=== PATIENT | male | born 1945 | race Caucasian/White ===

== ENCOUNTER 2024-10-31 04:03 | Inpatient (IN) | payer MEDICARE, SELFPAY ==
[2024-10-31] VITALS (35 sets, daily range): BP systolic 83–173; BP diastolic 55–101; PULSE 76–120; RESP 9–99; TEMP 36.4–38.3; O2SAT 83–100; BMI 29.9; BMI 25.2
--- NOTE | 2024-10-31 04:14 | PD.EDAMS ---
Altered Mental Status RME/HPI General Chief Complaint: Altered Mental Status Stated Complaint: AMS Time Seen by Provider: 10/31/24 04:18 Arrival date/time: 10/31/24 04:03 RME / HPI RME / HPI narrative: See [facility] for HPI documentation Related Data Home Medications ?Medication ?Instructions ?Recorded ?Confirmed atorvastatin 40 mg tablet 40 mg PO QDAY 07/13/19 07/13/19 escitalopram oxalate 20 mg tablet 20 mg PO QDAY 07/13/19 07/13/19 ropinirole 2 mg tablet,extended 2 mg PO QDAY 07/13/19 07/13/19 release 24 hr (Requip XL) valsartan 80 mg tablet (Diovan) 240 mg PO QDAY 07/13/19 07/13/19 Previous Rx's ?Medication ?Instructions ?Recorded ondansetron HCl 4 mg tablet 4 mg PO Q8H PRN nausea and 02/25/21 (Zofran) vomiting #20 tabs naproxen 500 mg tablet (Naprosyn) 500 mg PO BID #14 tabs 06/14/22 oxycodone-acetaminophen 5 mg-325 1 tab PO Q8H PRN pain #7 tabs 06/14/22 mg tablet (Percocet) Allergies Allergy/AdvReac Type Severity Reaction Status Date / Time Penicillins Allergy Unknown RASH Verified 05/02/18 12:00 Past Medical History Past Medical History CARDIAC: Positive Cardiac Disorders, Hypercholesterolemia and Hypertension RESPIRATORY: Positive Chronic Obstructive Pulmonary Disease (COPD) ENDOCRINE: Positive Endocrine Disorders and Diabetes Mellitus Type 2 PSYCHO/SOCIAL: Positive Depression and Anxiety Social History SUBSTANCE USE: marijuana ED Exam Narrative Physical exam: See [facility] for physical exam documentation Course Quality Measures none Orders Category Date Time Status Bedside COVID-19 Antigen Test NOW Care 10/31/24 04:15 Active Bedside Influenza A&B Antigen Test NOW Care 10/31/24 04:15 Completed EKG (ED ONLY) *Do not use* NOW Care 10/31/24 04:16 Completed Saline [Insert IV] NOW Care 10/31/24 04:15 Active Straight [In and Out Catheter] X1 Care 10/31/24 04:[address] cervical spine wo con Stat Exams 10/31/24 04:[address] chest abdomen pelvis wo Stat Exams 10/31/24 04:[address] head/brain wo con Stat Exams 10/31/24 04:17 Taken EKG (ED Only) Stat Exams 10/31/24 04:16 Ordered XR chest 1V portable Stat Exams 10/31/24 04:17 Taken ABG [Arterial Blood Gas] Stat Lab 10/31/24 04:17 Ordered Alcohol, Blood Medical Stat Lab 10/31/24 04:20 Results Ammonia Stat Lab 10/31/24 04:20 Completed BNP [B-Type Natriuretic Peptide] Stat Lab 10/31/24 04:20 Completed Beta Hydroxybutyrate Stat Lab 10/31/24 04:20 Results Bilirubin,Direct Stat Lab 10/31/24 04:20 Results Blood Culture (Lab) Stat Lab 10/31/24 04:43 Received CBC Stat Lab 10/31/24 04:20 Completed CK [Creatine Kinase] Stat Lab 10/31/24 04:20 Results CMP [Comprehensive Metabolic Panel] Stat Lab 10/31/24 04:20 Results CRP [C-Reactive Protein] Stat Lab 10/31/24 04:20 Results D-Dimer Stat Lab 10/31/24 04:20 Completed Drug Screen,Urine Stat Lab 10/31/24 04:20 Completed ESR [Sed Rate (ESR)] Stat Lab 10/31/24 04:20 Completed Hemoglobin A1C [Glycohemoglobin w (eAG)] Stat Lab 10/31/24 04:20 Completed Lactate (Lactic Acid) Stat Lab 10/31/24 04:20 Results Lipase Stat Lab 10/31/24 04:20 Results Magnesium Stat Lab 10/31/24 04:20 Results PT [Prothrombin Time with INR] Stat Lab 10/31/24 04:20 Completed PTT [Partial Thromboplastin Time] Stat Lab 10/31/24 04:20 Completed Procalcitonin Stat Lab 10/31/24 04:20 Results TSH [Thyroid Stimulating Hormone] Stat Lab 10/31/24 04:20 Results Troponin I Stat Lab 10/31/24 04:20 Results UA, C/S IF [Urinalysis, C/S if Indicated] Stat Lab 10/31/24 04:20 Completed Acetaminophen Ivpb [Ofirmev Inj] Med 10/31/24 04:45 Discontinued 1,000 mg in 100 ml IV X1 Diazepam Inj [Valium Inj] Med 10/31/24 04:27 Discontinued 10 mg IVP X1 ONE Insulin Reg 100 Units/100 ml [Myxredlin] Med 10/31/24 04:16 Active 100 unit in 100 ml IV 0.1 unit/kg/hr Insulin Regular Med 10/31/24 04:15 Discontinued 10 unit IV X1 ONE Ketorolac Inj [Toradol Inj] Med 10/31/24 04:45 Discontinued 30 mg IVP X1 ONE Ondansetron Inj [Zofran Inj] Med 10/31/24 04:15 Discontinued 4 mg IVP X1 ONE Ringers Lactated 1000 ml [Lactated Ringers] 1,000 ml Med 10/31/24 04:57 Active IV 999 mls/hr Sodium Chloride 0.9% 1000 ml [Ns] 1,000 ml Med 10/31/24 04:15 Discontinued IV 999 mls/hr Sodium Chloride 0.9% 1000 ml [Ns] 1,000 ml Med 10/31/24 05:14 Active IV 999 mls/hr cefTRIAXone/D5w 1gm IV premix [Rocephin/D5w 1gm IV Med 10/31/24 04:31 Discontinued premix] 1 gm in 50 ml IV X1 Vital Signs Vital signs: Vital Signs Temperature 100.7 F H 10/31/24 04:38 Pulse Rate 118 H 10/31/24 04:38 Respiratory Rate 20 10/31/24 04:38 Blood Pressure 173/101 H 10/31/24 04:38 Pulse Oximetry (%) 100 10/31/24 04:38 Oxygen Delivery Method Room Air 10/31/24 04:38 Altered Mental Status MDM Narrative MDM Narrative:: Scribe Attestation: I, Marcella Gallegos, am scribing for and in the presence of Dr. Gutiérrez. This section includes all my notes and documentations, including HPI, PE, and ED course. Ky Gutiérrez MD HPI: 78 y/o male with Hx of DM here with AMS. Can't obtain history from the patient due to AMS. History is from family who is present. Normally, patient is alert and oriented and independent, living alone. Family member found him completely naked and confused. Uncertain about injury. Patient keeps repeatedly asking for water. No other complaints. ROS: Can't obtain from the patient due to current clinical condition. Physical Exam: General: Alert but confused. Eyes: Conjunctivae and lids clear. EOMI. PERRL. Fever noted. ENT: No signs of trauma. Neck: Supple. No tenderness. Heart: Sinus tachycardia noted. Lungs: Mild respiratory distress with tachypnea. Good air movement. No severe rhonchi, wheezing, rales. Chest: No tenderness. Abdomen: Soft and nontender. Back: No tenderness. Legs: No clubbing, cyanosis, edema. Skin: Warm and dry. Neuro: Alert and oriented X 1. Cranial Nerves II-XII grossly intact. No peripheral motor deficits. Musculoskeletal: All major joints and bones are not tender with no limited ROM. I reviewed all resulted diagnostic test results: My interpretation of the EKG is: Sinus tachycardia (116 bpm) with nonspecific ST-T changes. Returned blood test results remarkable for ESR 41, Hgb A1C 11.7, lactic acid 5.4, beta hydroxybutyrate 1.8. UA showed 4+ glucose, 1+ ketones. UDS positive for marijuana. Covid/Influenza: Negative. At this point, diagnoses include: AMS Fever Hyperglycemia Treatment here included: Diazepam 10 mg IV prior to diagnostic tests due to severe agitation IVF Regular insulin bolus and drip Zofran 4 mg IV Toradol 30 mg IV and Tylenol 1000 mg IV Rocephin 1 g IV At 6 AM on 10/31/2024, the care of the patient was transferred to Dr. Merida. Ky Gutiérrez MD Patient data External records reviewed:: [facility] previous records (Reviewed prior ED records from 06/25/22. Patient was seen for Fecal impaction in rectum.) Clinical information provided by:: patient and family Social determinants that could affect healthcare access:: none Patient has the following chronic illnesses:: Hypercholesterolemia, Hypertension, Chronic Obstructive Pulmonary Disease (COPD), Diabetes Mellitus Type 2, Depression and Anxiety How is presenting disease/condition affected by chronic disease/condition?: exacerbated by Evaluation data The following diagnostics were reviewed and interpreted by me:: lab results, radiology exam(s) and EKG tracing(s) (My interpretation of the EKG is: Sinus tachycardia (116 bpm) with nonspecific ST-T changes. Ky Gutiérrez MD) Lab and/or radiology exams considered but not ordered:: None Interpretation Summary: I reviewed all resulted diagnostic test results: My interpretation of the EKG is: Sinus tachycardia (116 bpm) with nonspecific ST-T changes. Returned blood test results remarkable for ESR 41, Hgb A1C 11.7, lactic acid 5.4, beta hydroxybutyrate 1.8. UA showed 4+ glucose, 1+ ketones. UDS positive for marijuana. Covid/Influenza: Negative. Medications / Prescriptions Medications or Prescriptions considered but not ordered:: None Medication administrations:: Medication Administration History Insulin Human Regular (Myxredlin) 100 unit in 100 mls @ 8.165 mls/hr IV .[id number] PRN; Protocol PRN Reason: PER PROTOCOL Stop: 11/30/24 04:15 Lactated Ringer's (Lactated Ringers) 1,000 mls @ 999 mls/hr IV .Q1H1M ONE Stop: 10/31/24 05:57 Last Admin: 10/31/24 05:31 Dose: 999 mls/hr Documented By: SOL Sodium Chloride (Ns) 1,000 mls @ 999 mls/hr IV .Q1H1M ONE Stop: 10/31/24 06:14 Last Admin: 10/31/24 05:35 Dose: 999 mls/hr Documented By: SOL Discontinued Medications Diazepam (Diazepam Inj 5 Mg/Ml Vial 2 Ml) 10 mg IVP X1 ONE Stop: 10/31/24 04:28 Last Admin: 10/31/24 04:35 Dose: 10 mg Documented By: SOL Sodium Chloride (Ns) 1,000 mls @ 999 mls/hr IV .Q1H1M ONE Stop: 10/31/24 05:15 Last Infusion: 10/31/24 05:16 Dose: Infused Documented By: Admin: 10/31/24 04:25 Dose: 999 mls/hr Documented By: SOL Ceftriaxone Sodium/Dextrose (Rocephin/D5w 1gm Iv Premix) 1 gm in 50 mls @ 100 mls/hr IV X1 ONE Stop: 10/31/24 05:00 Last Admin: 10/31/24 04:45 Dose: 100 mls/hr Documented By: SOL Acetaminophen (Ofirmev Inj) 1,000 mg in 100 mls @ 250 mls/hr IV X1 ONE Stop: 10/31/24 05:08 Last Admin: 10/31/24 05:30 Dose: 250 mls/hr Documented By: SOL Insulin Human Regular (Insulin Hum Regular 1 Unit/0.01 Ml (Per Unit)) 10 unit IV X1 ONE Stop: 10/31/24 04:16 Last Admin: 10/31/24 04:26 Dose: 10 unit Documented By: SOL Co-signed By: MAYNOR Ketorolac Tromethamine (Ketorolac Inj 30 Mg/Ml Vial) 30 mg IVP X1 ONE Stop: 10/31/24 04:46 Last Admin: 10/31/24 05:31 Dose: 30 mg Documented By: SOL Ondansetron HCl (Ondansetron Inj 2 Mg/Ml Inj 2 Ml) 4 mg IVP X1 ONE; Protocol Stop: 10/31/24 04:16 Last Admin: 10/31/24 04:25 Dose: 4 mg Documented By: SOL Treatment here from me included: Diazepam 10 mg IV prior to diagnostic tests due to severe agitation IVF Regular insulin bolus and drip Zofran 4 mg IV Toradol 30 mg IV and Tylenol 1000 mg IV Rocephin 1 g IV Consultations Consultation(s) initiated? (list below): No Diagnosis Differential diagnosis altered mental status: alcoholic intoxication, altered mental status, delirium, dementia, hypoglycemia, hyponatremia, subarachnoid hemorrhage and sepsis Most likely diagnosis given after review of the tests above:: At this point, diagnoses include: AMS Fever Hyperglycemia Admission Indicated Admission indicated?: not indicated Explain why admission is indicated or not indicated:: Complete diagnostic tests are pending. Admission Request Was there a request for admission?: No Disposition Plan Disposition Plan: other (specify) (At 6 AM on 10/31/2024, the care of the patient was transferred to Dr. Merida.) Discharge Plan Prescriptions/Referrals Prescriptions/Med Rec: No Action ondansetron HCl [Zofran] 4 mg tablet 4 mg PO Q8H PRN (Reason: nausea and vomiting) Qty: 20 0RF atorvastatin 40 mg Tablet 40 mg PO QDAY valsartan [Diovan] 80 mg Tablet 240 mg PO QDAY escitalopram oxalate 20 mg Tablet 20 mg PO QDAY ropinirole [Requip XL] 2 mg Tablet Extended Release 24 Hr 2 mg PO QDAY oxycodone-acetaminophen [Percocet] 5-325 mg tablet 1 tab PO Q8H MDD 3 PRN (Reason: pain) Qty: 7 0RF naproxen [Naprosyn] 500 mg tablet 500 mg PO BID Qty: 14 0RF Referrals: Jose Antonio Donaldson PA-C [Primary Care Provider] - In 1 week Problem List Clinical Impression: Altered mental status, Fever, Hyperglycemia Patient/Caregiver Discharge Instructions Print Language: Ukrainian
--- NOTE | 2024-10-31 04:16 | EKG_ITS ---
[facility] Test Date: 2024-10-31 Pat Name: XIAO LANDIN Department: Room: - Gender: Male [employer]: ER : 1945 Requested By: Ky Ackerman Order Number: [id number] Reading MD: Ky Ackerman Measurements Intervals [place] Rate: 75 P: 69 IN: 150 QRS: 16 QRSD: 92 T: 91 QT: 428 QTc: 480 Interpretive Statements SINUS RHYTHM ST DEVIATION AND MODERATE T-WAVE ABNORMALITY, CONSIDER ANTEROLATERAL ISCHEMIA Compared to ECG 02/25/2021 16:21:51 T-wave abnormality now present Possible ischemia now present /store/S0/[id number]/ecg/[id number].pdf
--- NOTE | 2024-10-31 04:17 | XR_ITS ---
Examination: CT cervical spine without contrast 2-D sagittal reconstructions 2-D coronal reconstructions 3-D reconstructions. Exam date and time:October 31, 2024, 0509 hours INDICATIONS: Patient found down unconscious with altered mental status today neck pain CTDI:vol (mGy) 16.5 DLP: (mGycm) 293 Technique: Multiple 2 mm axial sections of the cervical spine have been obtained. The coronal and sagittal reconstructions have been obtained. 3-D reconstructions have been obtained. Low dose protocols were performed. One or more of the following dose reduction techniques were used; automated exposure control, adjustment of the mA and/or KV according to patient size, use of iterative reconstruction technique. Findings: Axial sections demonstrate intact base of the skull. C1 exhibit satisfactory relationship to the odontoid. No acute cervical vertebral body fracture seen. Alignment posterior spinous processes satisfactory. Advanced degenerative disc disease C5-C6, C6-C7 Impression: No acute cervical fracture.
--- NOTE | 2024-10-31 04:17 | XR_ITS ---
Examination: CT chest, without intravenous contrast. CT abdomen, without intravenous contrast. CT pelvis, without intravenous contrast. 2-D sagittal and coronal reconstructions. 3-D reconstructions. Date and time of exam:October 31, 2024, 0511 hours INDICATIONS: Patient found down unconscious today with chest and abdominal pain CTDI vol (mgy) 10.2 DLP (MGycm)776 Technique: Multiple CT images, 3.0 mm slice thickness, obtained chest, abdomen, pelvis, with the high-resolution 64 slice scanner.. Sagittal and coronal 2-D reconstructions are obtained. 3-D reconstructions Low dose protocols were performed. One or more of the following dose reduction techniques were used; automated exposure control, adjustment of the mA and/or KV according to patient size, use of iterative reconstruction technique. Findings: Right internal jugular Port-A-Cath tip satisfactory position. Thoracic aorta and pulmonary arteries intact No pneumothorax pulmonary contusion or hemothorax Large retrocardiac gastric hernia The manubrium and body of the sternum intact Severe osteopenia No acute thoracic lumbar or sacral fracture Rib detail is reduced by continual patient motion No displaced rib fractures No liver or splenic or renal laceration Contracted gallbladder Abdominal aorta and back with no free blood in the abdomen No bowel obstruction Bladder intact Hips pelvis bones intact Impression : Thoracic aorta pulmonary arteries intact No pneumothorax pulmonary contusion or hemothorax No abdominal parenchymal laceration Abdominal aorta intact. No free blood in the abdomen or pelvis
--- NOTE | 2024-10-31 04:17 | XR_ITS ---
Examination: CT brain head without contrast. 2-D sagittal coronal reconstructions Date and time of exam:October 31, 2024, 0509 hours INDICATIONS: Patient fell today with injury to the head, followed by altered mental status and agitation CTDI: vol (mGy):53.6 DLP: (mGycm):1038 Technique: Multiple CT axial sections of the brain have been obtained, 5 mm slice thickness. Contrast has not been administered. 2-D sagittal, coronal reconstructions have been obtained Low dose protocols were performed. One or more of the following dose reduction techniques were used; automated exposure control, adjustment of the mA and/or KV according to patient size, use of iterative reconstruction technique. Findings: No significant ventricular enlargement. Intra-axial or extra-axial hemorrhage density is not seen. No mass effect or midline shift Basal cisterns are not remarkable. Fourth ventricle is midline. Cranial vault intact. Impression: Negative for acute hemorrhage, mass effect or midline shift
--- NOTE | 2024-10-31 04:17 | XR_ITS ---
Examination: AP chest single view TECHNIQUE: AP portable upright chest single view Date and time: October 31, 2024 0424 hours, comparison there were ,019 INDICATIONS: Altered mental status with shortness of breath today. Findings : Mild enlargement cardiac contour. Large retrocardiac gastric hernia. Right internal jugular Port-A-Cath tip SVC Mild vascular congestion. No pneumothorax. Osseous structures appear intact IMPRESSION: No pneumothorax
[2024-10-31] MEDS: ONDANSETRON INJ 2 MG/ML INJ 2 ML 4 MG IVP (04:25)
[2024-10-31] MEDS: SODIUM CHLORIDE 0.9% 1000 ML 1,000 ML 999 ML IV ×2 (04:25→05:35)
[2024-10-31] MEDS: INSULIN HUM REGULAR 1 UNIT/0.01 ML (PER UNIT) 10 UNIT IV (04:26)
[2024-10-31] MEDS: DIAZEPAM INJ 5 MG/ML VIAL 2 ML 10 MG IVP (04:35)
[2024-10-31 04:40] LABS: Collection Type, Urine Clean Catch; RBC,Urine 0 /hpf (0-3); Squamous Epithelial Cell,Urine 0 /hpf (0-5); WBC,Urine 0 /hpf (0-5)
[2024-10-31 04:44] LABS: Bilirubin,Urine Negative (Negative); Blood,Urine Negative (Negative); Clarity,Urine Clear (Clear/Hazy); Color,Urine Colorless (Lt Yel-Yel); Culture Indicated,Urine Not Indicated; Glucose, Urine 4+ (Negative); Ketones,Urine 1+ (Negative); Leukocyte Esterase,Urine Negative (Negative); Nitrite,Urine Negative (Negative); PH,Urine 6.0 (5.0-7.0); Protein,Urine Negative (Neg - Trace); Specific Gravity,Urine 1.024 (1.001-1.035); Urobilinogen,Urine Negative mg/dL (0.0-1.0)
[2024-10-31] MEDS: cefTRIAXone/D5w 1gm IV premix 1 GM/50 ML BAG IV (04:45)
[2024-10-31 04:57] LABS: Basophils # (Auto) 0.1 Thou/mm3 (0.0-0.2); Basophils % (Auto) 1 % (0-2.5); Eosinophils # (Auto) 0.0 Thou/mm3 (0.0-0.5); Eosinophils % (Auto) 0 % (0-10); Hematocrit 44.4 % (41.0-53.0); Hemoglobin 13.4 g/dL (13.5-16.0); Immature Granulocytes Auto 0.03 Thou/mm3 (0.00-0.00); Lymphocytes # (Auto) 0.4 Thou/mm3 (1.0-4.8); Lymphocytes % (Auto) 4 % (10-50); Mean Corpuscular HGB Conc 30.2 g/dl (31.0-37.0); Mean Corpuscular Hemoglobin 26.2 pg (25.0-35.0); Mean Corpuscular Volume 87 fL (80-100); Monocytes # (Auto) 0.1 Thou/mm3 (0.0-0.8); Monocytes % (Auto) 1 % (0-12); Neutrophils # (Auto) 9.8 Thou/mm3 (1.8-7.7); Neutrophils % (Auto) 94 % (37-80); Nucleated Red Blood Cell # 0.00 Thou/mm3 (0.00-0.00); Nucleated Red Blood Cell % 0 /100 WBC (0); Platelet Count 402 Thou/mm3 (140-440); RDW Standard Deviation 49.0 fL (35.1-43.9); Red Blood Count 5.11 Miln/mm3 (4.50-5.90); White Blood Count 10.4 Thou/mm3 (3.8-10.6)
[2024-10-31 05:01] LABS: Beta Hydroxybutyrate 1.8 mmol/L (<0.6)
[2024-10-31 05:02] LABS: Ammonia < 10 uMol/L (11-32); Amphetamine/Methamp Scrn,U Negative (Negative); Barbiturate Screen,Urine Negative (Negative); Benzodiazepines Screen,Urine Negative (Negative); Benzoylecgonine Screen, Ur Negative (Negative); Fentanyl Screen,Urine Negative (Negative); Opiate Screen,Urine Negative (Negative); THC Screen,Urine Positive (Negative)
[2024-10-31 05:06] LABS: Lactate (Lactic Acid) 5.4 mMol/L (0.4-2.0)
[2024-10-31 05:12] LABS: INR 1.0 (0.9-1.3); Partial Thromboplastin Time 24.2 Seconds (22.0-36.0); Prothrombin Time 10.9 Seconds (9.0-12.2); Sed Rate (ESR) 41 mm/hr (0-20)
[2024-10-31 05:15] LABS: B-Type Natriuretic Peptide 194 pg/mL (0-100)
[2024-10-31 05:26] LABS: Glucose Estimated Average 289 mg/dL (80-131); Hemoglobin A1C 11.7 % Hgb (4.8-6.0)
[2024-10-31] MEDS: ACETAMINOPHEN IVPB 1,000 MG/100 ML VIAL 250 MG IV (05:30)
[2024-10-31] MEDS: RINGERS LACTATED 1000 ML 1,000 ML 999 ML IV (05:31)
[2024-10-31] MEDS: KETOROLAC INJ 30 MG/ML VIAL IVP (05:31)
[2024-10-31 05:32] LABS: D-Dimer 383 ng/mL (<600)
[2024-10-31 05:55] LABS: Alanine Aminotransferase 14 U/L (10-49); Albumin, Serum 4.2 gm/dL (3.4-4.8); Albumin/Globulin Ratio 1.8 (1.2-2.2); Alkaline Phosphatase 68 U/L (46-116); Anion Gap 13 (7-16); Aspartate Amino Transferase 27 U/L (0-34); BUN/Creatinine Ratio 18 Ratio (12-20); Bilirubin,Direct 0.1 mg/dL (0.0-0.3); Bilirubin,Total 0.4 mg/dL (0.3-1.2); Blood Urea Nitrogen 36 mg/dL (9-23); C-Reactive Protein 0.5 mg/dL (0.0-0.9); Calcium 9.7 mg/dL (8.3-10.6); Calcium (Corrected) 9.7 mg/dL (8.5-10.1); Carbon Dioxide 19.0 mMol/L (20.0-31.0); Chloride 100 mMol/L (98-107); Creatine Kinase 207 U/L (34-171); Creatinine (Component) 2.0 mg/dL (0.6-1.3); Estimated Creatinine Clearance 30.9 mL/min (>60); Globulin 2.3 gm/dL (2.3-3.5); Lipase 31 U/L (12-53); Magnesium 2.2 mg/dL (1.6-2.6); Procalcitonin 0.10 ng/ml (0.0-0.49); Sodium 132 mMol/L (136-145); Thyroid Stimulating Hormone 0.77 uIU/mL (0.55-4.78); Total Protein 6.5 gm/dL (5.7-8.2); eGFR 34 See Note
[2024-10-31 05:57] LABS: Alcohol, Blood Medical < 3.0 mg/dL (0-10.0); Osmolality,Calculated 320 (275-295)
[2024-10-31 05:58] LABS: Troponin I 2.855 ng/mL (0.0-0.045)
[2024-10-31 06:00] LABS: Glucose 955 mg/dL (74-106); Potassium 6.2 mMol/L (3.4-5.1)
--- NOTE | 2024-10-31 06:00 | PRELIM_ITS ---
CT scan of the cervical spine without intravenous contrast (axial sections with sagittal and coronal reformats). October 31, 2024 0509 hours Clinical history: Trauma Comparison: No prior study is available for comparison. Findings: There is no acute fracture or traumatic subluxation. There are multilevel degenerative changes in the form of decreased disc height, marginal osteophytes, uncovertebral and facet arthropathy, predominantly at C5/6 and C6/7 levels with disc osteophyte complexes causing mild spinal canal and mild bilateral neural foraminal narrowing. There are degenerative changes at the atlantoaxial joint. The prevertebral soft tissues are unremarkable. Impression: No evidence of acute fracture or traumatic subluxation. Degenerative changes as described. Report Electronically Signed By: Seth Alvarez 10/31/2024 5:59:47 AM [EST]
--- NOTE | 2024-10-31 06:00 | PRELIM_ITS ---
CT scan of the head without intravenous contrast (axial sections with sagittal and coronal reformats) October 31, 2024 0509 hours Clinical history: AMS Comparison: No prior study is available for comparison. Findings: There is no evidence of intracranial hemorrhage, mass effect or midline shift. There are periventricular white matter hypodensities, compatible with chronic small vessel ischemia. Basal ganglia calcifications are present bilaterally. There is mild volume loss. There is atheromatous calcification of the intracranial arteries. The calvarium is unremarkable. The mastoid air cells and the visualized paranasal sinuses are clear. Impression: No evidence of intracranial hemorrhage, mass effect or midline shift. Chronic small vessel ischemia and volume loss. Report Electronically Signed By: Seth Alvarez 10/31/2024 5:59:55 AM [EST]
[2024-10-31] MEDS: INSULIN REG 100 UNITS/100 ML 100 UNIT/100 ML BAG 8.165 UNIT IV (06:03)
--- NOTE | 2024-10-31 06:21 | PRELIM_ITS ---
CT scan of the chest, abdomen and pelvis without intravenous contrast (axial sections with sagittal and coronal reformats) October 31, 2024 0511 hours Clinical History: Fall Comparison: No prior study is available for comparison. Findings: Bibasilar dependent atelectasis is present. The lungs are otherwise clear. There is no pleural effusion or pneumothorax. The thoracic aorta demonstrates atheromatous calcification without evidence of aneurysm. There is no mediastinal collection. There are small mediastinal lymph nodes, likely reactive. There is no pericardial effusion. A vasyl-cath is seen in the right chest wall with its tip in the superior vena cava. A large hiatal hernia is present. There is thickening of bilateral adrenals. The liver, gallbladder, spleen, pancreas and kidneys are unremarkable on this noncontrast study. Bowel anastomotic sutures are seen in the right lower quadrant. The bowel is otherwise unremarkable. There is a 1.4 cm diverticulum at the right posterolateral wall of the urinary bladder. The urinary bladder is otherwise unremarkable. There is no free fluid or free air. The abdominal aorta and iliac arteries demonstrate atheromatous calcification without evidence of aneurysm. Calcific densities are seen in the pelvis, likely representing phleboliths. Surgical stables are seen in the root of the scrotum. No acute fracture is identified. Degenerative changes are identified in the spine. Impression: No visceral or acute bony injury to the chest, abdomen or pelvis. Other findings as described above. Report Electronically Signed By: Seth Alvarez 10/31/2024 6:20:58 AM [EST]
--- NOTE | 2024-10-31 06:33 | PD.EDADDENDU ---
Emergency Room Addendum <Bel Chase - Last Filed: 10/31/24 08:00> Addendum Narrative: 0600: Care assumed from Dr. Gutiérrez, the previous shift emergency physician. Past medical, surgical, social and family history reviewed. Vitals and home medications reviewed. I will assume the care of the patient at this time, pending remainder of diagnostic tests and final disposition. Please refer to the emergency department record for history and examination from initial visit.? Physical exam by me shows patient under no acute distress at this time. 0703: Discussed test HPI, PMHx, lab, radiology results and/or management with Dr. Burnett. Recommends to keep the patient on an insulin drip. Will consult and recommends ICU admission. EKG #1: Dated 10/31/2024. My interpretation: EKG performed at 0416 hours, sinus tachycardia, rate 116, normal intervals, non specific ST-T wave changes, no cardiac alert EKG #2: Dated 10/31/2024. My interpretation: EKG performed at 0704 hours, sinus tachycardia, rate 102, normal intervals, non specific ST-T wave changes, no cardiac alert 0758: Discussed test HPI, PMHx, lab, radiology results and/or management with Dr. Bryant. States this is a type 2 HI, no interventions to do at this time. <Christy Merida MD - Last Filed: 10/31/24 08:17> Addendum Narrative: 0600: Care assumed from Dr. Gutiérrez, the previous shift emergency physician. Past medical, surgical, social and family history reviewed. Vitals and home medications reviewed. I will assume the care of the patient at this time, pending remainder of diagnostic tests and final disposition. Please refer to the emergency department record for history and examination from initial visit.? Physical exam by me shows patient under no acute distress at this time. Continues to be confused however is following commands. Spoke with patient's daughter at bedside, patient's daughter states that patient has a history of smoking, and diabetes. Patient previously wore an insulin pump however has not had an insulin pump on for some time. Unclear when the last time he used insulin was. Denies alcohol and drugs. States that the patient sometimes up with her sometimes lives on his own. She received a call earlier this morning that her father called somebody saying that he did not feel well and asked them to bring food. Before this patient was at his baseline. No fever diarrhea vomiting chest pain or abdominal pain. Prior provider evaluated patient, ordered labs, CT brain, CT chest abdomen pelvis without contrast also ordered sepsis order set given patient presented tachycardic and febrile. Provided patient with antibiotics tolerated without difficulties. Labs without any leukocytosis, left shift of 94%. VBG with pH 7.31 . Initial presentation potassium was 6.2. EKG showed mild peaked T waves in lead V2 and V3. Prior provider had provided 10 units of insulin as well as started patient on insulin drip. And also provided patient with fluids. I ordered calcium gluconate, albuterol, Kayexalate. Discussed case with machine loader Dr. Burnett, recommended admission to ICU, continuing the insulin drip and believes that with the interventions as provided now, potassium should improve. Patient has an acute kidney injury, creatinine initially 2, down trended to 1.7 following fluid resuscitation. Patient never had an anion gap acidosis. However had a small decrease in his bicarbonate that improved following fluid resuscitation. Blood glucose on presentation was 900 downtrended to 570 following fluids and insulin. Patient hemoglobin A1c is 11.7. Lactic acid 5.1 on initial presentation it was 5.4. Ammonia not elevated, CK2 07. Initial troponin 2, uptrending to 7.8, EKG without evidence of ST elevations or depressions and ischemia pattern, BNP is 194, beta-hydroxybutyrate 1.8, urinalysis without evidence of infection drug screen positive for marijuana. Head CT and cervical spine without any acute abnormalities. Chest x-ray unremarkable, chest abdomen and pelvis without contrast with evidence of a right Port-A-Cath, large retrocardiac gastric hernia, osteopenia otherwise no other abnormalities. EKG #1: Dated 10/31/2024. My interpretation: EKG performed at 0416 hours, sinus tachycardia, rate 116, normal intervals, non specific ST-T wave changes, no cardiac alert EKG #2: Dated 10/31/2024. My interpretation: EKG performed at 0704 hours, sinus tachycardia, rate 102, normal intervals, non specific ST-T wave changes, no cardiac alert 0703: Discussed test HPI, PMHx, lab, radiology results and/or management with Dr. Burnett. Recommends to keep the patient on an insulin drip. Will consult and recommends ICU admission. 0758: Discussed test HPI, PMHx, lab, radiology results and/or management with Dr. Bryant. States this is a type 2 HI, no interventions to do at this time. No need to start heparin. 0816: Reevaluated patient, patient now GCS 15, alert and oriented to person place and situation. Feels better has no complaints. Per the patient's daughter the patient had a Port-A-Cath because he received chemotherapy approximately 10 years ago for colon cancer he has been in remission however he has not followed up with his providers in some time as he does not want to get a repeat colonoscopy. Discussed case with Dr. Mosher supervisor dehydrogenation, will admit the patient. Results <Bel Chase - Last Filed: 10/31/24 08:00> Objective Laboratory: Laboratory Last Values WBC 10.4 Thou/mm3 (3.8-10.6) 10/31/24 04:20 RBC 5.11 Miln/mm3 (4.50-5.90) 10/31/24 04:20 Hgb 13.4 g/dL (13.5-16.0) L 10/31/24 04:20 Hct 44.4 % (41.0-53.0) 10/31/24 04:20 MCV 87 fL (80-100) 10/31/24 04:20 MCH 26.2 pg (25.0-35.0) 10/31/24 04:20 MCHC 30.2 g/dl (31.0-37.0) L 10/31/24 04:20 RDW Std Deviation 49.0 fL (35.1-43.9) H 10/31/24 04:20 Plt Count 402 Thou/mm3 (140-440) 10/31/24 04:20 Neut % (Auto) 94 % (37-80) H 10/31/24 04:20 Lymph % (Auto) 4 % (10-50) L 10/31/24 04:20 Ellis % (Auto) 1 % (0-12) 10/31/24 04:20 Eos % (Auto) 0 % (0-10) 10/31/24 04:20 Baso % (Auto) 1 % (0-2.5) 10/31/24 04:20 Neut # (Auto) 9.8 Thou/mm3 (1.8-7.7) H 10/31/24 04:20 Lymph # (Auto) 0.4 Thou/mm3 (1.0-4.8) L 10/31/24 04:20 Ellis # (Auto) 0.1 Thou/mm3 (0.0-0.8) 10/31/24 04:20 Eos # (Auto) 0.0 Thou/mm3 (0.0-0.5) 10/31/24 04:20 Baso # (Auto) 0.1 Thou/mm3 (0.0-0.2) 10/31/24 04:20 Immature Gran # (Auto) 0.03 Thou/mm3 (0.00-0.00) H 10/31/24 04:20 Absolute Nucleated RBC 0.00 Thou/mm3 (0.00-0.00) 10/31/24 04:20 Immature Gran % 0 % (0-0) 10/31/24 04:20 Nucleated RBC % 0 /100 WBC (0) 10/31/24 04:20 ESR 41 mm/hr (0-20) H 10/31/24 04:20 PT 10.9 Seconds (9.0-12.2) 10/31/24 04:20 INR 1.0 (0.9-1.3) 10/31/24 04:20 APTT 24.2 Seconds (22.0-36.0) 10/31/24 04:20 D-Dimer 383 ng/mL (<600) 10/31/24 04:20 Sodium 132 mMol/L (136-145) L 10/31/24 04:20 Potassium 6.2 mMol/L (3.4-5.1) H* 10/31/24 04:20 Chloride 100 mMol/L (98-107) 10/31/24 04:20 Carbon Dioxide 19.0 mMol/L (20.0-31.0) L 10/31/24 04:20 Anion Gap 13 (7-16) 10/31/24 04:20 BUN 36 mg/dL (9-23) H 10/31/24 04:20 Creatinine 2.0 mg/dL (0.6-1.3) H 10/31/24 04:20 Estim Creat Clear Calc 30.9 mL/min (>60) L 10/31/24 04:20 eGFR 34 See Note (60-) L 10/31/24 04:20 BUN/Creatinine Ratio 18 Ratio (12-20) 10/31/24 04:20 Glucose 955 mg/dL (74-106) H* 10/31/24 04:[address] Glu mg/dL 289 mg/dL (80-131) H 10/31/24 04:20 Hemoglobin A1c 11.7 % Hgb (4.8-6.0) H 10/31/24 04:20 Calculated Osmolality 320 (275-295) H 10/31/24 04:20 Lactic Acid 5.4 mMol/L (0.4-2.0) H* 10/31/24 04:20 Calcium 9.7 mg/dL (8.3-10.6) 10/31/24 04:20 Corrected Calcium 9.7 mg/dL (8.5-10.1) 10/31/24 04:20 Magnesium 2.2 mg/dL (1.6-2.6) 10/31/24 04:20 Total Bilirubin 0.4 mg/dL (0.3-1.2) 10/31/24 04:20 Direct Bilirubin 0.1 mg/dL (0.0-0.3) 10/31/24 04:20 AST 27 U/L (0-34) 10/31/24 04:20 ALT 14 U/L (10-49) 10/31/24 04:20 Alkaline Phosphatase 68 U/L (46-116) 10/31/24 04:20 Ammonia < 10 uMol/L (11-32) L 10/31/24 04:20 Total Creatine Kinase 207 U/L (34-171) H 10/31/24 04:20 Troponin I 2.855 ng/mL (0.0-0.045) H* 10/31/24 04:20 C-Reactive Prot, Quant 0.5 mg/dL (0.0-0.9) 10/31/24 04:20 B-Natriuretic Peptide 194 pg/mL (0-100) H 10/31/24 04:20 Total Protein 6.5 gm/dL (5.7-8.2) 10/31/24 04:20 Albumin 4.2 gm/dL (3.4-4.8) 10/31/24 04:20 Globulin 2.3 gm/dL (2.3-3.5) 10/31/24 04:20 Albumin/Globulin Ratio 1.8 (1.2-2.2) 10/31/24 04:20 Lipase 31 U/L (12-53) 10/31/24 04:20 Beta-Hydroxybutyrate/Acetoacetate 1.8 mmol/L (<0.6) H 10/31/24 04:20 Procalcitonin 0.10 ng/ml (0.0-0.49) 10/31/24 04:20 TSH 0.77 uIU/mL (0.55-4.78) 10/31/24 04:20 Ur Collection Type Clean Catch 10/31/24 04:20 Urine Color Colorless (Lt Yel-Yel) A 10/31/24 04:20 Urine Clarity Clear (Clear/Hazy) 10/31/24 04:20 Urine pH 6.0 (5.0-7.0) 10/31/24 04:20 Ur Specific [place] 1.024 (1.001-1.035) 10/31/24 04:20 Urine Protein Negative (Neg - Trace) 10/31/24 04:20 Urine Glucose (UA) 4+ (Negative) A 10/31/24 04:20 Urine Ketones 1+ (Negative) A 10/31/24 04:20 Urine Blood Negative (Negative) 10/31/24 04:20 Urine Nitrite Negative (Negative) 10/31/24 04:20 Urine Bilirubin Negative (Negative) 10/31/24 04:20 Urine Urobilinogen (Auto) Negative mg/dL (0.0-1.0) 10/31/24 04:20 Ur Leukocyte Esterase Negative (Negative) 10/31/24 04:20 Urine RBC 0 /hpf (0-3) 10/31/24 04:20 Urine WBC 0 /hpf (0-5) 10/31/24 04:20 Ur Squamous Epith Cells 0 /hpf (0-5) 10/31/24 04:20 Urine Bacteria None (None) 10/31/24 04:20 Ur Culture Indicated? Not Indicated 10/31/24 04:20 Urine Opiates Screen Negative (Negative) 10/31/24 04:20 Urine Fentanyl Screen Negative (Negative) 10/31/24 04:20 Ur Barbiturates Screen Negative (Negative) 10/31/24 04:20 U Amphetamin/Meth Scrn Negative (Negative) 10/31/24 04:20 U Benzodiazepines Scrn Negative (Negative) 10/31/24 04:20 U Cocaine Metab Screen Negative (Negative) 10/31/24 04:20 U Marijuana (THC) Screen Positive (Negative) A 10/31/24 04:20 Ethyl Alcohol < 3.0 mg/dL (0-10.0) 10/31/24 04:20 <Christy Merida MD - Last Filed: 10/31/24 08:17> Objective Laboratory: Laboratory Last Values WBC 10.4 Thou/mm3 (3.8-10.6) 10/31/24 04:20 RBC 5.11 Miln/mm3 (4.50-5.90) 10/31/24 04:20 Hgb 13.4 g/dL (13.5-16.0) L 10/31/24 04:20 Hct 44.4 % (41.0-53.0) 10/31/24 04:20 MCV 87 fL (80-100) 10/31/24 04:20 MCH 26.2 pg (25.0-35.0) 10/31/24 04:20 MCHC 30.2 g/dl (31.0-37.0) L 10/31/24 04:20 RDW Std Deviation 49.0 fL (35.1-43.9) H 10/31/24 04:20 Plt Count 402 Thou/mm3 (140-440) 10/31/24 04:20 Neut % (Auto) 94 % (37-80) H 10/31/24 04:20 Lymph % (Auto) 4 % (10-50) L 10/31/24 04:20 Ellis % (Auto) 1 % (0-12) 10/31/24 04:20 Eos % (Auto) 0 % (0-10) 10/31/24 04:20 Baso % (Auto) 1 % (0-2.5) 10/31/24 04:20 Neut # (Auto) 9.8 Thou/mm3 (1.8-7.7) H 10/31/24 04:20 Lymph # (Auto) 0.4 Thou/mm3 (1.0-4.8) L 10/31/24 04:20 Ellis # (Auto) 0.1 Thou/mm3 (0.0-0.8) 10/31/24 04:20 Eos # (Auto) 0.0 Thou/mm3 (0.0-0.5) 10/31/24 04:20 Baso # (Auto) 0.1 Thou/mm3 (0.0-0.2) 10/31/24 04:20 Immature Gran # (Auto) 0.03 Thou/mm3 (0.00-0.00) H 10/31/24 04:20 Absolute Nucleated RBC 0.00 Thou/mm3 (0.00-0.00) 10/31/24 04:20 Immature Gran % 0 % (0-0) 10/31/24 04:20 Nucleated RBC % 0 /100 WBC (0) 10/31/24 04:20 ESR 41 mm/hr (0-20) H 10/31/24 04:20 PT 10.9 Seconds (9.0-12.2) 10/31/24 04:20 INR 1.0 (0.9-1.3) 10/31/24 04:20 APTT 24.2 Seconds (22.0-36.0) 10/31/24 04:20 D-Dimer 383 ng/mL (<600) 10/31/24 04:20 Sodium 132 mMol/L (136-145) L 10/31/24 04:20 Potassium 6.2 mMol/L (3.4-5.1) H* 10/31/24 04:20 Chloride 100 mMol/L (98-107) 10/31/24 04:20 Carbon Dioxide 19.0 mMol/L (20.0-31.0) L 10/31/24 04:20 Anion Gap 13 (7-16) 10/31/24 04:20 BUN 36 mg/dL (9-23) H 10/31/24 04:20 Creatinine 2.0 mg/dL (0.6-1.3) H 10/31/24 04:20 Estim Creat Clear Calc 30.9 mL/min (>60) L 10/31/24 04:20 eGFR 34 See Note (60-) L 10/31/24 04:20 BUN/Creatinine Ratio 18 Ratio (12-20) 10/31/24 04:20 Glucose 955 mg/dL (74-106) H* 10/31/24 04:[address] Glu mg/dL 289 mg/dL (80-131) H 10/31/24 04:20 Hemoglobin A1c 11.7 % Hgb (4.8-6.0) H 10/31/24 04:20 Calculated Osmolality 320 (275-295) H 10/31/24 04:20 Lactic Acid 5.4 mMol/L (0.4-2.0) H* 10/31/24 04:20 Calcium 9.7 mg/dL (8.3-10.6) 10/31/24 04:20 Corrected Calcium 9.7 mg/dL (8.5-10.1) 10/31/24 04:20 Magnesium 2.2 mg/dL (1.6-2.6) 10/31/24 04:20 Total Bilirubin 0.4 mg/dL (0.3-1.2) 10/31/24 04:20 Direct Bilirubin 0.1 mg/dL (0.0-0.3) 10/31/24 04:20 AST 27 U/L (0-34) 10/31/24 04:20 ALT 14 U/L (10-49) 10/31/24 04:20 Alkaline Phosphatase 68 U/L (46-116) 10/31/24 04:20 Ammonia < 10 uMol/L (11-32) L 10/31/24 04:20 Total Creatine Kinase 207 U/L (34-171) H 10/31/24 04:20 Troponin I 2.855 ng/mL (0.0-0.045) H* 10/31/24 04:20 C-Reactive Prot, Quant 0.5 mg/dL (0.0-0.9) 10/31/24 04:20 B-Natriuretic Peptide 194 pg/mL (0-100) H 10/31/24 04:20 Total Protein 6.5 gm/dL (5.7-8.2) 10/31/24 04:20 Albumin 4.2 gm/dL (3.4-4.8) 10/31/24 04:20 Globulin 2.3 gm/dL (2.3-3.5) 10/31/24 04:20 Albumin/Globulin Ratio 1.8 (1.2-2.2) 10/31/24 04:20 Lipase 31 U/L (12-53) 10/31/24 04:20 Beta-Hydroxybutyrate/Acetoacetate 1.8 mmol/L (<0.6) H 10/31/24 04:20 Procalcitonin 0.10 ng/ml (0.0-0.49) 10/31/24 04:20 TSH 0.77 uIU/mL (0.55-4.78) 10/31/24 04:20 Ur Collection Type Clean Catch 10/31/24 04:20 Urine Color Colorless (Lt Yel-Yel) A 10/31/24 04:20 Urine Clarity Clear (Clear/Hazy) 10/31/24 04:20 Urine pH 6.0 (5.0-7.0) 10/31/24 04:20 Ur Specific [place] 1.024 (1.001-1.035) 10/31/24 04:20 Urine Protein Negative (Neg - Trace) 10/31/24 04:20 Urine Glucose (UA) 4+ (Negative) A 10/31/24 04:20 Urine Ketones 1+ (Negative) A 10/31/24 04:20 Urine Blood Negative (Negative) 10/31/24 04:20 Urine Nitrite Negative (Negative) 10/31/24 04:20 Urine Bilirubin Negative (Negative) 10/31/24 04:20 Urine Urobilinogen (Auto) Negative mg/dL (0.0-1.0) 10/31/24 04:20 Ur Leukocyte Esterase Negative (Negative) 10/31/24 04:20 Urine RBC 0 /hpf (0-3) 10/31/24 04:20 Urine WBC 0 /hpf (0-5) 10/31/24 04:20 Ur Squamous Epith Cells 0 /hpf (0-5) 10/31/24 04:20 Urine Bacteria None (None) 10/31/24 04:20 Ur Culture Indicated? Not Indicated 10/31/24 04:20 Urine Opiates Screen Negative (Negative) 10/31/24 04:20 Urine Fentanyl Screen Negative (Negative) 10/31/24 04:20 Ur Barbiturates Screen Negative (Negative) 10/31/24 04:20 U Amphetamin/Meth Scrn Negative (Negative) 10/31/24 04:20 U Benzodiazepines Scrn Negative (Negative) 10/31/24 04:20 U Cocaine Metab Screen Negative (Negative) 10/31/24 04:20 U Marijuana (THC) Screen Positive (Negative) A 10/31/24 04:20 Ethyl Alcohol < 3.0 mg/dL (0-10.0) 10/31/24 04:20 Critical Care Time <Bel Chase - Last Filed: 10/31/24 08:00> Critical Care Time Critical Care Time: Yes Total Critical Care Time (min.): 45 Attestation: The high probability of sudden, clinically significant deterioration in the patient?s condition required the highest level of my preparedness to intervene urgently. The services I provided to this patient were to treat and/or prevent clinically significant deterioration. Services included the following: chart data review, reviewing nursing notes and/or old charts, documentation time, it security consultant collaboration regarding findings and treatment options, medication orders and management, direct patient care, vital sign assessments and ordering, interpreting and reviewing diagnostic studies and lab tests. Aggregate critical care time includes only time during which I was engaged in work directly related to the patient?s care, as described above, whether at bedside or elsewhere in the Emergency Department. It did not include time spent performing other reported procedures or the services of residents, students, nurses or physician assistants.
[2024-10-31] MEDS: FUROSEMIDE INJ 10 MG/ML VIAL 2 ML 40 MG IVP (07:00)
[2024-10-31] MEDS: SOD POLYSTYRENE SULFON SUSP 15 GM/60 ML BTL 30 GM PO (07:01)
[2024-10-31] MEDS: CALCIUM GLUCONATE 10% INJ 1 GM/10 ML VIAL IV (07:01)
[2024-10-31 07:12] LABS: Base Excess, Venous -5 (-3-3); O2 Saturation, Venous 86 % (96-97); PCO2, Venous 41 mmHg (36-56); PO2, Venous 53 mmHg (15-58); pH, Venous 7.31 (7.33-7.66)
[2024-10-31 07:46] LABS: Reflex Lactate? Y
[2024-10-31 07:46] LABS: Alanine Aminotransferase 12 U/L (10-49); Albumin, Serum 3.8 gm/dL (3.4-4.8); Albumin/Globulin Ratio 2.0 (1.2-2.2); Alkaline Phosphatase 52 U/L (46-116); Anion Gap 11 (7-16); Aspartate Amino Transferase 32 U/L (0-34); BUN/Creatinine Ratio 16 Ratio (12-20); Bilirubin,Total 0.2 mg/dL (0.3-1.2); Blood Urea Nitrogen 27 mg/dL (9-23); Calcium 8.6 mg/dL (8.3-10.6); Calcium (Corrected) 8.8 mg/dL (8.5-10.1); Carbon Dioxide 20.4 mMol/L (20.0-31.0); Chloride 111 mMol/L (98-107); Creatinine (Component) 1.7 mg/dL (0.6-1.3); Estimated Creatinine Clearance 36.4 mL/min (>60); Globulin 1.9 gm/dL (2.3-3.5); Osmolality,Calculated 314 (275-295); Potassium 4.8 mMol/L (3.4-5.1); Sodium 142 mMol/L (136-145); Total Protein 5.7 gm/dL (5.7-8.2); eGFR 41 See Note
[2024-10-31 07:50] LABS: Glucose 570 mg/dL (74-106); Troponin I 7.826 ng/mL (0.0-0.045)
[2024-10-31 07:59] LABS: Lactic Acid, 3 HR 5.1 mMol/L (0.4-2.0)
[2024-10-31] MEDS: ALBUTEROL RT 2.5 MG/0.5 ML NEBU 15 MG INH (08:50)
[2024-10-31] MEDS: SODIUM CHLORIDE RT SOL 0.9% 3 ML NEBU INH (08:50)
[2024-10-31] MEDS: PANTOPRAZOLE 40 MG TABLET PO (09:17)
--- NOTE | 2024-10-31 09:55 | PD.RESCONSUL ---
HPI Data of Consult Consult date: 10/31/24 Requesting Physician: Max Mosher MD Admitting Provider: Max Mosher MD Attending Provider: Max Mosher MD Primary Care Provider: Jose Antonio Donaldson PA-C Consult Narrative Reason for consult: Hyperkalemia History of present illness: history provided by daughter Lambert, pt is intermittently somnolent and oriented x1. Mr. Maynard is a 78-year-old gentleman with a past medical history significant for poorly controlled type 2 diabetes mellitus not on insulin- a1c 11.7, COPD, depression, query dementia, colon cancer in remission (s/p chemo, and resection), restless leg syndrome, who was found naked and down by his daughter Lambert, with AMS and brought in to the emergency department. He lives alone. he was found to have a blood glucose of 955 mg/dL, lactic acid of 5.4 mmol/L, and hemoglobin A1c of 11.7%. No prior history of dialysis or advanced chronic kidney disease is documented. The patient is unable to provide reliable history due to his mental status, history provided by daughter, Lambert. ED course Dx - WBC wnl, VBG with pH 7.31, Na 146, K 6.2, Cl 111, CO2 19, BUN 36, Cr 2.0, Glucose 955, A1c 11.7, Lactic acid 5.4, Troponin 7.8, BNP 194, Beta hydroxybutyrate 1.8, Procalcitonin wnl, TSH wnl, Utox + marijuana UA4+ glucose, 1+ ketones - EKG@0400 initially with sinus tachycardia to 110s, and nonspecific ST changes, Repeat EKG with mild T peaked T waves 2 in V3? (not uploaded in chart) - CT head- Negative for acute hemorrhage, mass effect or midline shift - CT neck- no acute fractures - CTAP- unremarkable, Right internal jugular Port-A-Cath tip satisfactory position, Large retrocardiac gastric hernia Tx - 10 units insulin - Insulin drip - 2L NS - 1L LR - Ca gluconate 1 gm - Albuterol 15 - Ceftriaxone 1 gm - Lasix 40 mg IV 1x - Diazapam 10 mg PMH HTN, T1 vs T2 DM on insulin pump, COPD, restless leg syndrome, depression, colon cancer in remission, dementia? R ear deaf, malnutrition? 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 Social Hx: lives with independently (daughter lambert checks in on him occasionally), query smoking hx?, marijuana use, Etoh use (quit > 40 years ago) Medications: pending reconcilation, daughter will bring in medications ROS, unable to obtain given, pt mental status. 10/31/2024: Pt admitted to ICU, Nephrology consulted, Patient seen and examined in the ICU, Daughter Lambert at bedside, pt is intermittently somnolent, arousable to voice and touch, pt oriented to self. On exam pt appears frail with temporal wasting and with poor hygeine. Pt appears hypovolemic, lungs clear to auscultation, no peripheral edema, Schroeder in place draining clear urine. pt is on insulin drip and IVF, blood sugars are downtrending, 141 from 600s. cc:: cc: Max Mosher MD Review of Systems Review of Systems ROS Unobtainable: unobtainable due to mental status Exam Vital Signs Temp Pulse Resp BP Pulse Ox O2 Del Method 99.7 F 97 22 H 139/84 H 99 Room Air 10/31/24 07:17 10/31/24 09:02 10/31/24 09:02 10/31/24 08:00 10/31/24 09:02 10/31/24 08:00 Narrative Exam GENERAL: no acute distress, AAO x1, intermittently somnolent, comfortably laying in bed HEENT: Head AT/ NC. Mucous membranes dry. NECK: Supple, no lymphadenopathy,. CARDIOVASCULAR: RRR. Normal S1/S2, No m/r/g. No pitting edema of bilateral LEs. RESPIRATORY: CTAB. No wheezing, rhonchi, crackles. prolonged expiratory phase. GASTROINTESTINAL: Abdomen soft, non tender no palpable masses. Bowel sounds present , sensor on LUQ, MUSCULOSKELETAL:? No cyanosis or edema, no visible joint swelling. LUE with index finger with pip amputation, extremities are restless, moving LE spontaneously. NEUROLOGICAL: CN not assessed, No focal deficits. Sensation intact, symmetric. PSYCHIATRIC: Awake and alert, not agitated, normal mood and affect. SKIN: No obvious rashes, no jaundice, normal turgor, excoriations of LE on shins, feet and toes are dirty. with nails black. Results Labs 10/31/24 04:20 10/31/24 21:09 Labs: Short CBC 10/31/24 Range/Units 04:20 WBC 10.4 (3.8-10.6) Thou/mm3 Hgb 13.4 L (13.5-16.0) g/dL Hct 44.4 (41.0-53.0) % Plt Count 402 (140-440) Thou/mm3 BMP 10/31/24 10/31/24 04:20 06:50 Sodium 132 L 142 D Potassium 6.2 H* 4.8 D Chloride 100 111 H Carbon Dioxide 19.0 L 20.4 BUN 36 H 27 H Creatinine 2.0 H 1.7 H Glucose 955 H* 570 H* D Calcium 9.7 8.6 Cardiac Enzymes 10/31/24 10/31/24 Range/Units 04:20 06:50 Total Creatine Kinase 207 H (34-171) U/L Troponin I 2.855 H* 7.826 H* D (0.0-0.045) ng/mL Liver Function 10/31/24 10/31/24 Range/Units 04:20 06:50 Total Bilirubin 0.4 0.2 L (0.3-1.2) mg/dL Direct Bilirubin 0.1 (0.0-0.3) mg/dL AST 27 32 (0-34) U/L ALT 14 12 (10-49) U/L Alkaline Phosphatase 68 52 D (46-116) U/L Albumin 4.2 3.8 (3.4-4.8) gm/dL Urine 10/31/24 Range/Units 04:20 Urine Color Colorless A (Lt Yel-Yel) Urine Clarity Clear (Clear/Hazy) Urine pH 6.0 (5.0-7.0) Ur Specific Arvin 1.024 (1.001-1.035) Urine Protein Negative (Neg - Trace) Urine Glucose (UA) 4+ A (Negative) ABG Interpretation ABG results: 10/31/24 06:50 VBG pH 7.31 L VBG pCO2 41 VBG pO2 53 VBG Base Excess -5 L Quality Measures Quality Measures none Advance care planning discussed with:: patient Medications Home Medications and Allergies Home Medications ?Medication ?Instructions ?Recorded ?Confirmed ?Type atorvastatin 40 mg tablet 40 mg PO QDAY 07/13/19 10/31/24 History escitalopram oxalate 20 mg tablet 20 mg PO QDAY 07/13/19 10/31/24 History ropinirole 2 mg tablet,extended 2 mg PO QDAY 07/13/19 10/31/24 History release 24 hr (Requip XL) valsartan 80 mg tablet (Diovan) 240 mg PO QDAY 07/13/19 10/31/24 History lisinopril 10 mg tablet 10 mg PO QDAY 10/31/24 10/31/24 History ropinirole 4 mg tablet 8 mg PO HS 10/31/24 10/31/24 History Allergies Allergy/AdvReac Type Severity Reaction Status Date / Time Penicillins Allergy Unknown RASH Verified 05/02/18 12:00 Visit Medications Acetaminophen (Acetaminophen 325 Mg Tablet) 650 mg PO Q4HR PRN PRN Reason: PAIN SCALE 1-3 (mild Stop: 11/30/24 08:32 Heparin Sodium (Porcine) (Heparin Sod Inj 5000 Unit/Ml Vial) 5,000 unit SC Q8HR PIERCE Stop: 11/14/24 13:59 Insulin Human Regular (Myxredlin) 100 unit in 100 mls @ 8.165 mls/hr IV .[id number] PRN; Protocol PRN Reason: PER PROTOCOL Stop: 11/30/24 04:15 Last Titration: 10/31/24 09:23 Dose: 0.1 unit/kg/hr, 8.165 mls/hr Magnesium Hydroxide (Milk Of Magnesia Susp 30 Ml Udc) 30 ml PO QDAY PRN PRN Reason: CONSTIPATION Stop: 11/30/24 08:32 Pantoprazole Sodium (Pantoprazole 40 Mg Tablet) 40 mg PO QDAY PIERCE Stop: 11/30/24 08:59 Last Admin: 10/31/24 09:17 Dose: 40 mg Sodium Chloride (Sodium Chloride Rt Ramya 0.9% 3 Ml Nebu) 3 ml INH PRN PRN PRN Reason: SOLN Stop: 11/30/24 08:37 Last Admin: 10/31/24 08:50 Dose: 3 ml Discontinued Medications Albuterol (Albuterol Rt 2.5 Mg/3 Ml Nebu) 15 mg INH X1 ONE Stop: 10/31/24 06:44 Last Admin: 10/31/24 09:09 Dose: Not Given Albuterol (Albuterol Rt 2.5 Mg/0.5 Ml Nebu) 15 mg INH X1 ONE Stop: 10/31/24 08:39 Last Admin: 10/31/24 08:50 Dose: 15 mg Calcium Gluconate (Calcium Gluconate 10% Inj 1 Gm/10 Ml Vial) 1 gm IV X1 ONE Stop: 10/31/24 06:44 Last Admin: 10/31/24 07:01 Dose: 1 gm Diazepam (Diazepam Inj 5 Mg/Ml Vial 2 Ml) 10 mg IVP X1 ONE Stop: 10/31/24 04:28 Last Admin: 10/31/24 04:35 Dose: 10 mg Furosemide (Furosemide Inj 10 Mg/Ml Vial 2 Ml) 40 mg IVP X1 ONE Stop: 10/31/24 06:44 Last Admin: 10/31/24 07:00 Dose: 40 mg Sodium Chloride (Ns) 1,000 mls @ 999 mls/hr IV .Q1H1M ONE Stop: 10/31/24 05:15 Last Infusion: 10/31/24 05:16 Dose: Infused Ceftriaxone Sodium/Dextrose (Rocephin/D5w 1gm Iv Premix) 1 gm in 50 mls @ 100 mls/hr IV X1 ONE Stop: 10/31/24 05:00 Last Infusion: 10/31/24 05:15 Dose: Infused Acetaminophen (Ofirmev Inj) 1,000 mg in 100 mls @ 250 mls/hr IV X1 ONE Stop: 10/31/24 05:08 Last Infusion: 10/31/24 06:12 Dose: Infused Lactated Ringer's (Lactated Ringers) 1,000 mls @ 999 mls/hr IV .Q1H1M ONE Stop: 10/31/24 05:57 Last Admin: 10/31/24 05:31 Dose: 999 mls/hr Sodium Chloride (Ns) 1,000 mls @ 999 mls/hr IV .Q1H1M ONE Stop: 10/31/24 06:14 Last Infusion: 10/31/24 07:26 Dose: Infused Insulin Human Regular (Insulin Hum Regular 1 Unit/0.01 Ml (Per Unit)) 10 unit IV X1 ONE Stop: 10/31/24 04:16 Last Admin: 10/31/24 04:26 Dose: 10 unit Ketorolac Tromethamine (Ketorolac Inj 30 Mg/Ml Vial) 30 mg IVP X1 ONE Stop: 10/31/24 04:46 Last Admin: 10/31/24 05:31 Dose: 30 mg Ondansetron HCl (Ondansetron Inj 2 Mg/Ml Inj 2 Ml) 4 mg IVP X1 ONE; Protocol Stop: 10/31/24 04:16 Last Admin: 10/31/24 04:25 Dose: 4 mg Sodium Polystyrene Sulfonate (Sod Polystyrene Sulfon Susp 15 Gm/60 Ml Btl) 30 gm PO X1 ONE Stop: 10/31/24 06:44 Last Admin: 10/31/24 07:01 Dose: 30 gm Assessment & Plan Plan Mr Maynard is a 78 yo gentlmeman with a hx of HTN and Type 1vs type 2 DM with insulin pump (a1c 11.7), COPD (prescribed O2, but not using) who was found down by his daughter lambert and brought in, found to have severe hyperglycemia consistent with HHS, EKG with nonspecific ST changes, troponin uptrending, query NSTEMI type II, and RAMBO likely prerenal 2/2 hypovolemia admitted to the ICU for managment med reconciliation pending (daughter lambert will bring in medications) #RAMBO- likely prerenal hypovolemia in setting of #HHS- resolving 2.0 now 1.7 after IVF egfr 41 in setting of HHS, pt likely has profound intravascular volume depletion 2/2 severe osmotic diuresis, Plan - continue iv fluid resusitation per [facility] protocol (1L/hr) - ICU to manage - monitor Na and switch to .45 NS to avoid worsening hypernatremia, - q2 K checks - avoid nephrotoxic agents - renally dose medications #[place] metabolic acidosis #hyperkalemia #Hyperchloremia #query RTA type 4 Lactic Acid 5.1 from 5.4 Bicarb 20, hyperchloremia 111 will likely continue to improve with fluids and correction of hyperglycemia #AMS 2/2 #Severe hyperglycemia consistent with HHS #glucosuria #T2DM vs T1DM on insulin pump A1c : 11.7, Serum glucose 955 now 570, Finger Blood Sugar 600s, now 141 Corrected Na: 167 (Serum Na 146, Serum glucose 955: Measured sodium + 0.024 * (Serum glucose - 100)) Serum osm 320, VBG ph 3.1, Bicarb 20, UA with 4+ glucose, 1+ ketones, Beta hydroxy buterate 1.8 AMS likely 2/2 HHS, suspect metabolic derrangements contributing to pts AMS ammonia levels < 10, TSH wnl, low level of suspicion for infxn etiologies given pt is afebrile, wbc wnl, procalcitoin wnl , low level of suspician for stuctural etiologies given CT head negative, query toxins although lower on ddx. 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 Hortencia Pugh MD Internal Medicine PGY-1 Attending Provider Attestation/Addendum Patient seen and examined with resident physician Dr. Pugh. Note reviewed, agree with findings and recommendations. Spoke to daughter Harriet Patient admitted with hyperosmolar hyperglycemic coma. Blood sugar 959. Agree with IV insulin, IV fluids, currently in ICU. Hyperkalemia better with fluids. RAMBO from prerenal azotemia. Will monitor closely. Patient has insulin pump and Continuous glucose monitoring. Patient might benefit from going to rehab. Thank you Bartolo for allowing me to participate in the care of Mr. John
[2024-10-31] MEDS: INSULIN 8 UNIT SC (11:26)
--- NOTE | 2024-10-31 11:35 | PD.RESHP ---
Documentation for date of: 10/31/24 [facility] History of Present Illness History of present illness: Patient is altered and most of the history is taken from the daughter at the bedside. A 78-year-old male with significant past medical history of diabetes mellitus on insulin since almost 35 years, hypertension, restless leg syndrome, colon cancer status post resection, chemo and radiation currently in remission,? CHF, Severe hearing loss brought to the hospital with chief complaints of altered mental status. Per daughter, he was seen last normal 2 days ago and when she saw him on the day of admission noted that his insulin pump is not working and the battery needs to be replaced. Unsure since when he did not get that insulin. Denies fever, shortness of breath, chest pain, abdominal pain, nausea, vomitings, diarrhea, burning micturition. No similar complaints in the past. ED course: - Vitals at the time of admission, blood pressure is 173/101 mmHg, pulse rate 118 bpm, respiratory 20/min, temperature 100.7 ?F, SpO2 100% with room air - Labs done at the time of admission showed sodium 132, potassium 6.2, bicarb 19, BUN 36, creatinine 2, glucose 955, A1c 11.7, lactate 5.4, troponin 2.855, beta-hydroxybutyrate 1.8, procalcitonin 0.1, TSH 0.77 - Urine analysis showed 4+ glucosuria. Urine toxicology tested positive for marijuana - VBG showed pH 7.31 - EKG showed sinus tachycardia with no ST and T wave changes - CT chest/abdomen/pelvis/head did not show any significant abnormality. Past medical history: Diabetes mellitus, hypertension, colorectal cancer, restless leg syndrome, COPD Past surgical history: Colorectal cancer removal, knee replacement, left index finger distal phalangectomy Social history: Chronic marijuana smoker, quit alcohol and tobacco smoking almost 40years ago. Lives alone by himself Review of Systems Review of Systems ROS Unobtainable: unobtainable due to mental status Exam Vital Signs Temp Pulse Resp BP Pulse Ox O2 Del Method 99.7 F 97 22 H 139/84 H 99 Room Air 10/31/24 07:17 10/31/24 09:02 10/31/24 09:02 10/31/24 08:00 10/31/24 09:02 10/31/24 08:00 Narrative Exam General: Drowsy and not able to answer questions appropriately. HEENT: Normocephalic, atraumatic, mucous membranes dry. Heart: Regular rate and rhythm, no murmurs. Lungs: Clear to auscultation with no wheezing or crackles. Abdomen: Soft, nondistended, nontender, positive bowel sounds. ?No guarding or rebound tenderness. Neurologic: Drowsy and not able to answer questions appropriately, no gross neurological deficit, and patient able to move all 4 extremities. Extremities: No edema. Skin: No rash or ecchymoses. Results: Labs 11/05/24 07:45 11/05/24 07:45 Labs: Short CBC 10/31/24 Range/Units 04:20 WBC 10.4 (3.8-10.6) Thou/mm3 Hgb 13.4 L (13.5-16.0) g/dL Hct 44.4 (41.0-53.0) % Plt Count 402 (140-440) Thou/mm3 BMP 10/31/24 10/31/24 04:20 06:50 Sodium 132 L 142 D Potassium 6.2 H* 4.8 D Chloride 100 111 H Carbon Dioxide 19.0 L 20.4 BUN 36 H 27 H Creatinine 2.0 H 1.7 H Glucose 955 H* 570 H* D Calcium 9.7 8.6 Cardiac Enzymes 10/31/24 10/31/24 Range/Units 04:20 06:50 Total Creatine Kinase 207 H (34-171) U/L Troponin I 2.855 H* 7.826 H* D (0.0-0.045) ng/mL Liver Function 10/31/24 10/31/24 Range/Units 04:20 06:50 Total Bilirubin 0.4 0.2 L (0.3-1.2) mg/dL Direct Bilirubin 0.1 (0.0-0.3) mg/dL AST 27 32 (0-34) U/L ALT 14 12 (10-49) U/L Alkaline Phosphatase 68 52 D (46-116) U/L Albumin 4.2 3.8 (3.4-4.8) gm/dL Urine 10/31/24 Range/Units 04:20 Urine Color Colorless A (Lt Yel-Yel) Urine Clarity Clear (Clear/Hazy) Urine pH 6.0 (5.0-7.0) Ur Specific [place] 1.024 (1.001-1.035) Urine Protein Negative (Neg - Trace) Urine Glucose (UA) 4+ A (Negative) ABG Interpretation ABG results: 10/31/24 06:50 VBG pH 7.31 L VBG pCO2 41 VBG pO2 53 VBG Base Excess -5 L Quality Measures Quality Measures none Advance care planning discussed with:: child Medications Home Medications and Allergies Home Medications ?Medication ?Instructions ?Recorded ?Confirmed ?Type escitalopram oxalate 20 mg tablet 20 mg PO QDAY 07/13/19 10/31/24 History ropinirole 2 mg tablet,extended 2 mg PO QDAY 07/13/19 10/31/24 History release 24 hr (Requip XL) lisinopril 10 mg tablet 10 mg PO QDAY 10/31/24 10/31/24 History ropinirole 4 mg tablet 8 mg PO HS 10/31/24 10/31/24 History Allergies Allergy/AdvReac Type Severity Reaction Status Date / Time Penicillins Allergy Unknown RASH Verified 05/02/18 12:00 Visit Medications Acetaminophen (Acetaminophen 325 Mg Tablet) 650 mg PO Q4HR PRN PRN Reason: PAIN SCALE 1-3 (mild Stop: 11/30/24 08:32 Dextrose (Dextrose 50%-Water Inj 50 Ml Syringe) 25 ml IV Q15MIN PRN PRN Reason: BG 50-70 responsive npo pt Stop: 11/30/24 10:27 Dextrose (Dextrose 50%-Water Inj 50 Ml Syringe) 50 ml IV Q15MIN PRN PRN Reason: BG <50 OR BG <70 & pt unresponsive Stop: 11/30/24 10:27 Glucagon (Glucagon Inj 1 Mg Vial) 1 mg IM Q15MIN PRN PRN Reason: BG <70, and no IV access Heparin Sodium (Porcine) (Heparin Sod Inj 5000 Unit/Ml Vial) 5,000 unit SC Q8HR PIERCE Stop: 11/14/24 13:59 Insulin Human Regular (Myxredlin) 100 unit in 100 mls @ 8.165 mls/hr IV .[id number] PRN; Protocol PRN Reason: PER PROTOCOL Stop: 11/30/24 04:15 Last Titration: 10/31/24 09:23 Dose: 0.1 unit/kg/hr, 8.165 mls/hr Lactated Ringer's (Lactated Ringers) 1,000 mls @ 125 mls/hr IV .Q8H [facility] Stop: 11/30/24 10:26 Insulin Human Lispro (Insulin Lispro (Admelog) 1 Unit/0.01 Ml Unit) 0 unit SC ACHS [facility]; Protocol Stop: 11/30/24 11:29 Magnesium Hydroxide (Milk Of Magnesia Susp 30 Ml Udc) 30 ml PO QDAY PRN PRN Reason: CONSTIPATION Stop: 11/30/24 08:32 Pantoprazole Sodium (Pantoprazole 40 Mg Tablet) 40 mg PO QDAY PIERCE Stop: 11/30/24 08:59 Last Admin: 10/31/24 09:17 Dose: 40 mg Sodium Chloride (Sodium Chloride Rt Ramya 0.9% 3 Ml Nebu) 3 ml INH PRN PRN PRN Reason: SOLN Stop: 11/30/24 08:37 Last Admin: 10/31/24 08:50 Dose: 3 ml Discontinued Medications Albuterol (Albuterol Rt 2.5 Mg/3 Ml Nebu) 15 mg INH X1 ONE Stop: 10/31/24 06:44 Last Admin: 10/31/24 09:09 Dose: Not Given Albuterol (Albuterol Rt 2.5 Mg/0.5 Ml Nebu) 15 mg INH X1 ONE Stop: 10/31/24 08:39 Last Admin: 10/31/24 08:50 Dose: 15 mg Calcium Gluconate (Calcium Gluconate 10% Inj 1 Gm/10 Ml Vial) 1 gm IV X1 ONE Stop: 10/31/24 06:44 Last Admin: 10/31/24 07:01 Dose: 1 gm Diazepam (Diazepam Inj 5 Mg/Ml Vial 2 Ml) 10 mg IVP X1 ONE Stop: 10/31/24 04:28 Last Admin: 10/31/24 04:35 Dose: 10 mg Furosemide (Furosemide Inj 10 Mg/Ml Vial 2 Ml) 40 mg IVP X1 ONE Stop: 10/31/24 06:44 Last Admin: 10/31/24 07:00 Dose: 40 mg Sodium Chloride (Ns) 1,000 mls @ 999 mls/hr IV .Q1H1M ONE Stop: 10/31/24 05:15 Last Infusion: 10/31/24 05:16 Dose: Infused Ceftriaxone Sodium/Dextrose (Rocephin/D5w 1gm Iv Premix) 1 gm in 50 mls @ 100 mls/hr IV X1 ONE Stop: 10/31/24 05:00 Last Infusion: 10/31/24 05:15 Dose: Infused Acetaminophen (Ofirmev Inj) 1,000 mg in 100 mls @ 250 mls/hr IV X1 ONE Stop: 10/31/24 05:08 Last Infusion: 10/31/24 06:12 Dose: Infused Lactated Ringer's (Lactated Ringers) 1,000 mls @ 999 mls/hr IV .Q1H1M ONE Stop: 10/31/24 05:57 Last Admin: 10/31/24 05:31 Dose: 999 mls/hr Sodium Chloride (Ns) 1,000 mls @ 999 mls/hr IV .Q1H1M ONE Stop: 10/31/24 06:14 Last Infusion: 10/31/24 07:26 Dose: Infused Insulin Human Regular (Insulin Hum Regular 1 Unit/0.01 Ml (Per Unit)) 10 unit IV X1 ONE Stop: 10/31/24 04:16 Last Admin: 10/31/24 04:26 Dose: 10 unit Insulin Isophane/Insulin Regular (Insulin 70/30 1 Unit/0.01 Ml (Per Unit)) 12 unit SC X1 ONE Stop: 10/31/24 10:28 Insulin Isophane/Insulin Regular (Insulin 70/30 1 Unit/0.01 Ml (Per Unit)) 8 unit SC X1 ONE Stop: 10/31/24 10:28 Last Admin: 10/31/24 11:26 Dose: 8 unit Ketorolac Tromethamine (Ketorolac Inj 30 Mg/Ml Vial) 30 mg IVP X1 ONE Stop: 10/31/24 04:46 Last Admin: 10/31/24 05:31 Dose: 30 mg Ondansetron HCl (Ondansetron Inj 2 Mg/Ml Inj 2 Ml) 4 mg IVP X1 ONE; Protocol Stop: 10/31/24 04:16 Last Admin: 10/31/24 04:25 Dose: 4 mg Sodium Polystyrene Sulfonate (Sod Polystyrene Sulfon Susp 15 Gm/60 Ml Btl) 30 gm PO X1 ONE Stop: 10/31/24 06:44 Last Admin: 10/31/24 07:01 Dose: 30 gm Assessment & Plan Plan A 78-year-old male with significant past medical history of diabetes mellitus on insulin since almost 35 years, hypertension, restless leg syndrome, colon cancer status post resection, chemo and radiation currently in remission,? CHF, Severe hearing loss brought to the hospital with chief complaints of altered mental status and admitted for Hyperglycemic hyperosmolar state DRI[employer]ENER # Acute encephalopathy - DDx: Metabolic in the setting of hyperglycemic hyperosmolar state, most likely versus infective - Patient came in with altered sensorium and fever at the time of admission - Daughter reported that patient is dependent on insulin since around his 40s, by the time she saw her on the day of admission, noted to have failure of the insulin pump and not sure since how long he is not on insulin. - Noted to have temperature of 100.7 ?F at the time of admission and blood glucose of 955, lactate 5.4, bicarb 19, BUN 36, creatinine 2 - DDx: Metabolic in the setting of hyperglycemic hyperosmolar state, most likely versus infective Rx: - Will treat underlying metabolic state, which is highly suspected at this point of time. Patient is having hypoglycemic hyperosmolar state which caused severe dehydration, RAMBO leading to lactic acidosis that could be causing the altered sensorium - Patient was given 1 dose of ceftriaxone in the ED in view of febrile episode at the time of admission. Could not find any source of infection at this point of time. Will continue to monitor vitals and if patient noted to have further febrile episodes, will start on ceftriaxone CVS # Sinus tachycardia, resolved - Patient is noted to have sinus tachycardia with heart rate around 110 bpm - EKG done at that time showed sinus tachycardia with no ST and T wave changes - Might be due to dehydration from underlying HHS - Repleted with fluids and started on maintenance fluids, LR at 125 cc/h # NSTEMI, 1 versus 2 - Likely type II in the setting of demand ischemia due to underlying metabolic condition and severe dehydration - Troponin at the time of admission is 2.855, later up trended to 7.826 - EKG does not show any evidence of ST and T wave changes - Will continue to monitor troponins and if patient is suspected to have type I, will start on heparin drip and consult her account auditor # ?Arrhythmias -Daughter reported that patient had history of arrhythmias and occasionally gets symptoms from it but is currently not using any medications - EKG done at the time of admission does not show any abnormality - Will continue telemetry monitoring RS # No active problems GI # No active problems Renal # RAMBO on CKD - Baseline creatinine appears 1.3 in 2020, creatinine at the time of admission is 2 -, Likely prerenal RAMBO in the setting of dehydration from HHS due to osmotic diuresis Plan - Schroeder catheter was placed to monitor urine output - Repleted with 3 L of bolus in the ED and started on IV maintenance fluid, LR at 125 cc/h - Avoid nephrotoxic medication and renally dose medications - Insulation Manager, Dr. Burnett is consulted by the ED and will appreciate her recommendations # Hyperkalemia, resolved - Likely due to RAMBO - Potassium at the time of admission is 6.2 - Patient was given insulin 10 units and was started on insulin drip - Repeat potassium is 4.8 Plan - Will continue to monitor electrolytes and correct as needed # Non-anion gap metabolic acidosis, resolved # Lactic acidosis, resolving - Likely from dehydration and RAMBO - Noted to have lactate of 5.4 and bicarb of 19 at the time of admission - Patient was repleted with fluids in the ED and following which metabolic acidosis is resolved - Will replete with fluids and continue to monitor lactate levels and renal panel Endocrinology # Insulin-dependent diabetes mellitus # Hyperglycemic hyperosmolar state -Patient is on insulin pump since almost 35 years and is on 2.8 units/h - Per patient's daughter, the insulin pump ran out of battery and is not working when she saw her father at the time of admission and not sure for how long he ran out of the battery - At the time of admission, noted to have blood sugar of 955, serum osmolality 320 and presented with altered sensorium - Beta-hydroxybutyrate level is 1.8 but ABG did not show any significant acidosis, noted to have normal anion gap Plan - Patient was given 10 units of regular insulin in the ED - Started on the insulin drip - Later as the sugars got control, transition from IV insulin to subcutaneous insulin and noted to have improvement in sensorium at that time and patient had pudding - Initially patient was given 8 units of NPH insulin followed by 30 units of Tresiba - Started on insulin sliding scale, ACHS and 1 more blood sugar check at 3 AM - A1c is ordered - Was given 3 L of fluid in the ED and was started on LR at 125 cc/h - Will continue to monitor his mentation Hematology # No active problems Hospital Maintenance: Dispo: ICU DVT ppx: heparin GI ppx: protonix Diet: low carb consistent IV lines: peripheral Code status: Full Patient plan of care was discussed with the Brim Stretching Machine Operator, Dr. Nomi Knox, PGY2 Attending Provider Attestation/Addendum Patient seen and examined with above resident, Christiano Knox MD. I agree with the findings, assessment, and plan of care as documented separately differences below. Patient admitted with hyperosmolar hyperglycemic nonketotic state with altered mentation. Appropriate fluid resuscitation and normalization of blood sugar improved the patient quickly. Potential underlying precipitants to be further investigated and cardiology will be consulted for elevation in troponin for possible ischemic event. Patient definitely does have coronary artery disease given his underlying comorbidities though this may be demand ischemia given renal dysfunction and hypovolemia. Continue to follow electrolyte panel and renal function. Patient can be transferred to [facility] for ongoing management should he remain stable in the coming hours. Patient and his daughter at bedside were updated on plan of care and remained agreeable. Total critical care time: I personally spent 35 minutes for review of physiologic parameters, , directing plan of care throughout the day, coordination of care with other specialties, and counseling patient and his daughter at bedside. This is exclusive of time spent [facility] hospital performing separate billable procedures. Patient remains at significant risk for further morbidity and mortality warranting care only available in the ICU. Critical care services for acute renal failure, NSTEMI, acute metabolic encephalopathy, hyperglycemic hyperosmolar nonketotic state.
[2024-10-31] MEDS: RINGERS LACTATED 1000 ML 1,000 ML 125 ML IV (12:30)
[2024-10-31 14:21] LABS: Lactate (Lactic Acid) 2.8 mMol/L (0.4-2.0)
[2024-10-31 14:50] LABS: Albumin, Serum 3.6 gm/dL (3.4-4.8); Anion Gap 9 (7-16); BUN/Creatinine Ratio 15 Ratio (12-20); Blood Urea Nitrogen 26 mg/dL (9-23); Calcium 8.9 mg/dL (8.3-10.6); Calcium (Corrected) 9.2 mg/dL (8.5-10.1); Carbon Dioxide 24.4 mMol/L (20.0-31.0); Chloride 113 mMol/L (98-107); Creatinine (Component) 1.7 mg/dL (0.6-1.3); Estimated Creatinine Clearance 31.0 mL/min (>60); Glucose 124 mg/dL (74-106); Magnesium 1.8 mg/dL (1.6-2.6); Osmolality,Calculated 296 (275-295); Phosphorous 2.6 mg/dL (2.4-5.1); Potassium 3.8 mMol/L (3.4-5.1); Sodium 146 mMol/L (136-145); eGFR 41 See Note
[2024-10-31 14:57] LABS: Troponin I 14.435 ng/mL (0.0-0.045)
[2024-10-31] MEDS: INSULIN DEGLUDEC 5 UNIT/0.05 ML (PER 5 UNITS) 30 UNIT SC (15:09)
[2024-10-31] MEDS: HEPARIN SOD INJ 5000 UNIT/ML VIAL 4000 UNIT IV (15:19)
[2024-10-31] MEDS: Heparin/D5w 25K 250 ML Ivpb 25,000 UNIT/250 ML BAG 8.268 UNIT IV (15:21)
--- NOTE | 2024-10-31 15:24 | ESPR_ITS ---
<Statement entered by Silverio Benedict MD - 10/31/24 22:36> pt is seen at bedside in ICU. Pt was admitted to the ICU for blood sugar control, he is type 1 diabetic and his insulin pump battery malfunctioned which lead him to have BG of 900's. No anion gap. Pt was given Tresiba 30 units, and NPH 8 units -> repeat BG was in the 140's therefore pt was downgraded to telemetry. Ptt's troponins were elevated with delta og 7.8 , EKG showed some T wave changes. pt is unable to give history because he is very somnolent. cardiology is consulted, pt is started on heparin drip ACS protocol and given Aspirin 325. Will continue to trend troponin until down trend. Awaiting cardiology recommendations. Patient was seen and examined by me personally. I have directly supervised and reviewed documentation by the team resident and agree with its findings. ------- Plan of care was discussed with the attending, Dr. Kristin Benedict, PGY-2 Documentation for date of: 10/31/24 Subjective Subjective Interval history: Mr. John is a 78-year-old male with past medical history of poorly controlled type 1 diabetes, COPD, depression, colon cancer in remission (s/p chemo and resection), restless leg syndrome brought into the ED on 10/31/2024 for altered mental status and was found to have a glucose of 955, A1c of 11.7 and lactic acid of 5.4. Admitted for management hyperosmotic hyperglycemic state and altered mental status upgraded to ICU. Patient was seen and examined in the ICU for downgrade to telemetry. Could not get a history from patient due to being intermittently somnolent, but arousable by voice and touch. Per chart review and ICU residents patient insulin pump broke for the last few days as he lives alone his daughter was unaware of the situation. His blood sugar kept Increasing without his awareness. Eventually when the daughter visited, found him unconscious. In the ICU patient was started on Tresiba 30 units, and NPH 8 units, LR fluids 125 cc/h. Glucose level went from 955 to 124 current read, improving significantly. Lactic acidosis also downtrending from 5.4 to 2.8. Potassium was 6.2 was given calcium gluconate 1gm for stabilization, now improving to 3.8. Elevated troponin on admission was 2.855, uptrending to 14.435. Cardiology was consulted, started the patient on heparin drip, and aspirin 325 mg. Possible cardiac cath tomorrow. Exam Vital Signs Temp Pulse Resp BP Pulse Ox O2 Del Method 99.1 F 109 H 13 121/70 99 Room Air 10/31/24 10:17 10/31/24 10:17 10/31/24 10:17 10/31/24 10:17 10/31/24 10:17 10/31/24 10:17 Narrative Exam Physical Exam General: Disheveled, somnolent, fingernails with visible subungual dirt bilaterally, suggestive of poor hygiene. Non-toxic appearing. HEENT: Normocephalic, atraumatic, mucous membranes dry. Heart: Regular rate and rhythm, normal S1 and S2, no murmurs. Lungs: Clear to auscultation with no wheezing or crackles. Abdomen: Soft, nondistended, nontender, positive bowel sounds. ?No guarding or rebound tenderness. Neurologic: Alert and oriented x1, no gross neurological deficit, and patient able to move all 4 extremities. 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 Skin: No rash or ecchymoses. Objective Labs 10/31/24 04:20 10/31/24 21:09 Labs: Laboratory Results - last 24 hr 10/31/24 10/31/24 10/31/24 04:20 06:50 14:05 WBC 10.4 RBC 5.11 Hgb 13.4 L Hct 44.4 MCV 87 MCH 26.2 MCHC 30.2 L RDW Std Deviation 49.0 H Plt Count 402 Neut % (Auto) 94 H Lymph % (Auto) 4 L [place] % (Auto) 1 Eos % (Auto) 0 Baso % (Auto) 1 Neut # (Auto) 9.8 H Lymph # (Auto) 0.4 L [place] # (Auto) 0.1 Eos # (Auto) 0.0 Baso # (Auto) 0.1 Immature Gran # (Auto) 0.03 H Absolute Nucleated RBC 0.00 Immature Gran % 0 Nucleated RBC % 0 ESR 41 H PT 10.9 INR 1.0 APTT 24.2 D-Dimer 383 VBG pH 7.31 L VBG pCO2 41 VBG pO2 53 VBG O2 Sat ([place]) 86 L VBG Base Excess -5 L Sodium 132 L 142 D 146 H Potassium 6.2 H* 4.8 D 3.8 D Chloride 100 111 H 113 H Carbon Dioxide 19.0 L 20.4 24.4 Anion Gap 13 11 9 BUN 36 H 27 H 26 H Creatinine 2.0 H 1.7 H 1.7 H Estim Creat Clear Calc 30.9 L 36.4 L 31.0 L eGFR 34 L 41 L 41 L BUN/Creatinine Ratio 18 16 15 Glucose 955 H* 570 H* D [address] Glu mg/dL 289 H Hemoglobin A1c 11.7 H Calculated Osmolality 320 H 314 H 296 H Lactic Acid 5.4 H* 5.1 H* 2.8 H Calcium 9.7 8.6 8.9 Corrected Calcium 9.7 8.8 9.2 Phosphorus 2.6 Magnesium 2.2 1.8 Total Bilirubin 0.4 0.2 L Direct Bilirubin 0.1 AST 27 32 ALT 14 12 Alkaline Phosphatase 68 52 D Ammonia < 10 L Total Creatine Kinase 207 H Troponin I 2.855 H* 7.826 H* D 14.435 H* D C-Reactive Prot, Quant 0.5 B-Natriuretic Peptide 194 H Total Protein 6.5 5.7 Albumin 4.2 3.8 3.6 Globulin 2.3 1.9 L Albumin/Globulin Ratio 1.8 2.0 Lipase 31 Beta-Hydroxybutyrate/Acetoacetate 1.8 H Procalcitonin 0.10 TSH 0.77 Ur Collection Type Clean Catch Urine Color Colorless A Urine Clarity Clear Urine pH 6.0 Ur Specific [place] 1.024 Urine Protein Negative Urine Glucose (UA) 4+ A Urine Ketones 1+ A Urine Blood Negative Urine Nitrite Negative Urine Bilirubin Negative Urine Urobilinogen (Auto) Negative Ur Leukocyte Esterase Negative Urine RBC 0 Urine WBC 0 Ur Squamous Epith Cells 0 Urine Bacteria None Ur Culture Indicated? Not Indicated Urine Opiates Screen Negative Urine Fentanyl Screen Negative Ur Barbiturates Screen Negative U Amphetamin/Meth Scrn Negative U Benzodiazepines Scrn Negative U Cocaine Metab Screen Negative U Marijuana (THC) Screen Positive A Ethyl Alcohol < 3.0 ABG Interpretation ABG results: 10/31/24 06:50 VBG pH 7.31 L VBG pCO2 41 VBG pO2 53 VBG Base Excess -5 L Quality Measures Quality Measures none Advance care planning discussed with:: patient and other Assessment & Plan Assessment Current Active Medications: Generic Name Dose Route Start Last Admin Trade Name Freq PRN Reason Stop Dose Admin Acetaminophen 650 mg 10/31/24 08:33 Acetaminophen 325 Mg Tablet PO 11/30/24 08:32 Q4HR PRN PAIN SCALE 1-3 (mild Dextrose 25 ml 10/31/24 10:28 Dextrose 50%-Water Inj 50 Ml Syringe IV 11/30/24 10:27 Q15MIN PRN BG 50-70 responsive npo pt Dextrose 50 ml 10/31/24 10:28 Dextrose 50%-Water Inj 50 Ml Syringe IV 11/30/24 10:27 Q15MIN PRN BG <50 OR BG <70 & pt unresponsive Glucagon 1 mg 10/31/24 10:28 Glucagon Inj 1 Mg Vial IM Q15MIN PRN BG <70, and no IV access Lactated Ringer's 1,000 mls @ 125 mls/hr 10/31/24 10:27 10/31/24 12:30 Lactated Ringers IV 11/30/24 10:26 125 mls/hr .Q8H PIERCE Administration Heparin Sodium/Dextrose 25,000 unit in 250 mls @ 8.268 mls/hr 10/31/24 15:15 Heparin In D5w Ivpb IV 11/14/24 15:14 .Q24H PIERCE Protocol 12 UNITS/KG/HR Insulin Human Lispro 0 unit 10/31/24 11:30 10/31/24 15:01 Insulin Lispro (Admelog) 1 Unit/0.01 Ml Unit SC 11/30/24 11:29 Not Given ACHS PIERCE Protocol Magnesium Hydroxide 30 ml 10/31/24 08:33 Milk Of Magnesia Susp 30 Ml Udc PO 11/30/24 08:32 QDAY PRN CONSTIPATION Pantoprazole Sodium 40 mg 10/31/24 09:00 10/31/24 09:17 Pantoprazole 40 Mg Tablet PO 11/30/24 08:59 40 mg QDAY PIERCE Administration Sodium Chloride 3 ml 10/31/24 08:38 10/31/24 08:50 Sodium Chloride Rt Ramya 0.9% 3 Ml Nebu INH 11/30/24 08:37 3 ml PRN PRN Administration SOLN Plan Mr. John is a 78-year-old male with past medical history of poorly controlled type 1 diabetes, COPD, depression, colon cancer in remission (s/p chemo and resection), restless leg syndrome brought into the ED on 10/31/2024 for altered mental status and was found to have a glucose of 955, A1c of 11.7 and lactic acid of 5.4. Admitted for management of hyperosmotic hyperglycemic state and altered mental status. #Hyperosmotic hyperglycemic state 2/2 # Acute encephalopathy 2/2 HHS #Diabetes mellitus type 1 # Non-anion gap metabolic #Hyperkalemia Patient has a history of type 1 diabetes which was managed on insulin pump. Noncompliant since pump broke. Findings consistent with hyperosmolar hyperglycemic state: Pt dehydrated, blood glucose 955, A1c 11.7. Non anion gap acidosis on admision, VBG ph7.31, bicarb 19.UA trace of glucose (4+), ketones (1+), beta-hydroxybutyrate 1.8. Also mental status is altered. He is in a state of of nonacidotic hyperglycemia, that is improving. Lactic acid from 5.4-5.1. Na 146, K 6.2 Received calcium 1gm gluconate, albuterol, ceftriaxone 1 g Plan -Glucose checks Q6h -Neurocheck every 4 hours -Upgraded the insulin sliding scale to step 3 -Follow-up with swallow test if negative, change diet to n.p.o. -Renal panel ordered for 6 PM, if sodium keeps increasing switch from LR to 0.45 NS - Continue to monitor lactate, if increase give more fluids - Continue to monitor VBG - Glucagon injection 1 mg - Monitor mentation - Magnesium, phosphate ordered - Seizure and aspiration precaution - Vitamin B12, folate - CBC AM, CMP AM - Referral dietitian #Elevated Troponins #NSTEMI type 1 vs Type 2 Uptrending troponin 2.855>7.826> 14.435. Does not report active chest pain at the moment. EKG showed ST deviation and moderate T wave abnormality, possible ischemia present. BNP elevated 194. 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 Meets SIRS criteria with 3/4: tachypnea with RR 22, Fever 101F, tachycadiac HR 109 endorgan damage. urine tox is positive for Marijuana only Plan -Pt is starte don heparin drip as per ACS protocol and given laoding dose of Aspirin 325. - Will Trend troponins until downtrended -Cardiac echo pending -Cardiology is consulted, appreciate recommendations -Lipid panel -Hemoglobin A1c -TSH level -Maintain potassium >4.0 and magnesium >2.0 #RAMBO on CKD #RAMBO likely prerenal in the setting of HHS #Hypernatremia On admission Cr is 1.6 and GFR 44, baseline Cr 1.3, likely pre-renal in the setting of HHS Plan - Continue iv fluid resuscitation per HHS protocol - Monitor Na and switch to .45 NS to avoid worsening hypernatremia - Avoid nephrotoxic agents - Renally dose medications - Nephrology consult, rec appreciated # Depression Pressure the patient has depression which is managed with home med escitalopram Plan - Due to pt's somnolence, will hold home escitalopram and will resume once pt is more awake and alert. - Pending med rec #Restless leg syndrome Per chart review history of restless leg syndrome on home med ropinirole 8mg PO HS Plan - Pending med rec #COPD Patient has a history of COPD on home O2 pt has history of COPD per daughter. Saturating well on room air Plan -Monitor O2 sat #Colon cancer in remission (s/p chemo and resection) - Follow-up outpatient with oncology Hospital management: Lines: peripheral IV Diet: Carbohydrate consistent low Bowel: N/A GI prophylaxis: Protonix 40 po DVT prophylaxis: Heparin Disposition: tele for management of HHS and AMS CODE STATUS: Full code Patient seen and assessed under supervision of attending physician and discuss with senior resident Dr. Benedict PGY-2 Carolina Vasquez MD PGY-1, Internal Medicine Attending Provider Attestation/Addendum I attest that I was physically present for the evaluation, physical examination, lab and imaging review of the patient with the residents. I discussed the case with the residents and agree with the findings and plans of care as documented above. Tony Foster MD
[2024-10-31 15:37] LABS: Base Excess, Venous -1 (-3-3); O2 Saturation, Venous 100 % (96-97); PCO2, Venous 28 mmHg (36-56); PO2, Venous 176 mmHg (15-58); pH, Venous 7.49 (7.33-7.66)
--- NOTE | 2024-10-31 16:24 | ECHO_ITS ---
Transthoracic Echo Report Ht (in): 64 Wt (lb): 151 Exam Location: Echo Lab Status: Inpatient Caddy/Caddie Supervisor: Nadine RAMIREZ Indications: Procedure Performed: BP: 149 / 61 HR: 83 MEASUREMENTS (Male / Female) Normal Values 2D ECHO LV Diastolic Diameter PLAX 4.4 cm 4.2 - 5.9 / 3.9 - 5.3 cm LV Systolic Diameter PLAX 2.7 cm IVS Diastolic Thickness 1.1 cm 0.6 - 1.0 / 0.6 - 0.9 cm LVPW Diastolic Thickness 1.0 cm 0.6 - 1.0 / 0.6 - 0.9 cm LV Relative Wall Thickness 0.5 LVOT Diameter 2.0 cm Ascending Aorta Diameter 3.1 cm M-MODE AV Cusp Separation MM 1.4 cm DOPPLER AV Peak Velocity 154.0 cm/s AV Peak Gradient 9.5 mmHg AV Mean Gradient 5.0 mmHg AV Velocity Time Integral 28.3 cm LVOT Peak Velocity 125.0 cm/s LVOT Peak Gradient 6.3 mmHg LVOT Velocity Time Integral 27.7 cm LVOT Cardiac Index 4074.6 cm?/min?m? AV Area Cont Eq vti 3.1 cm? AV Area Cont Eq pk 2.5 cm? MV Area PHT 4.7 cm? Mitral E Point Velocity 64.8 cm/s Mitral A Point Velocity 80.6 cm/s Mitral E to A Ratio 0.8 LV E' Lateral Velocity 4.5 cm/s Mitral E to LV E' Lateral Ratio 14.5 LV E' Septal Velocity 3.9 cm/s Mitral E to LV E' Septal Ratio 16.5 TR Peak Velocity 182.0 cm/s TR Peak Gradient 13.2 mmHg PV Peak Velocity 101.0 cm/s PV Peak Gradient 4.1 mmHg FINDINGS Left Ventricle Normal left ventricular evidence of normal left lumbar wall thickness basal segment hyperkinetic apical segments and anteroapical inferoapical segments hypokinetic suggestive of Takotsubo stress-induced cardiomyopathy Right Ventricle The right ventricle is normal in size and systolic function. Left Atrium The left atrial cavity size is mildly increased. Right Atrium The right atrium is normal by two-dimensional imaging, color flow and Doppler imaging with no structural abnormalities, no thrombus formation present. Atrial Septum The interatrial septum appears normal with no evidence of a shunt. Aorta The aorta is normal by two-dimensional, color flow and Doppler interrogation. Mitral Valve The mitral valve is normal by two-dimensional, color flow and Doppler interrogation. Trace mitral regurgitation. Aortic Valve The aortic valve is trileaflet and normal by two-dimensional, color flow and Doppler interrogation. There is no significant aortic valve regurgitation. Tricuspid Valve The tricuspid valve is normal by two-dimensional, color flow and Doppler interrogation. There is trace tricuspid valve regurgitation. Pulmonic Valve The pulmonic valve is not well visualized. There is no significant pulmonic valve regurgitation. Vessels The pulmonary artery appears normal. The inferior vena cava pulmonary and hepatic veins appear normal. Pericardium The pericardium is normal by two-dimensional imaging. There is no significant pericardial effusion. CONCLUSIONS Indication: NSTEMI Normal-sized left ventricle with evidence of basal hyperkinesis and anteroapical apical inferoapical akinesis and apical dyskinesis suggestive and consistent with stress-induced cardiomyopathy (Takotsubo cardiomyopathy ) Proximal left ventricular ejection fraction is 55 to 60% global LV function is well-preserved. RV normal in size and function LA moderately dilated Trace TR and MR Ellen Escoto (Electronically Signed) Final Date: 01 November 2024 17:31
[2024-10-31] MEDS: INSULIN LISPRO (AdmeLOG) 1 UNIT/0.01 ML UNIT SC (17:00)
[2024-10-31 17:19] LABS: Reflex Lactate? Y
[2024-10-31 18:23] LABS: Lactic Acid, 3 HR 3.1 mMol/L (0.4-2.0)
[2024-10-31 18:58] LABS: Base Excess, Venous 2 (-3-3); O2 Saturation, Venous 72 % (96-97); PCO2, Venous 43 mmHg (36-56); PO2, Venous 36 mmHg (15-58); pH, Venous 7.41 (7.33-7.66)
[2024-10-31 20:19] LABS: Albumin, Serum 3.4 gm/dL (3.4-4.8); Anion Gap 7 (7-16); BUN/Creatinine Ratio 17 Ratio (12-20); Blood Urea Nitrogen 27 mg/dL (9-23); Calcium 9.1 mg/dL (8.3-10.6); Calcium (Corrected) 9.6 mg/dL (8.5-10.1); Carbon Dioxide 26.0 mMol/L (20.0-31.0); Chloride 114 mMol/L (98-107); Creatinine (Component) 1.6 mg/dL (0.6-1.3); Estimated Creatinine Clearance 32.9 mL/min (>60); Osmolality,Calculated 295 (275-295); Phosphorous 2.7 mg/dL (2.4-5.1); Potassium 3.6 mMol/L (3.4-5.1); Sodium 147 mMol/L (136-145); eGFR 44 See Note
--- NOTE | 2024-10-31 20:33 | ESCONSULT_ITS ---
<Statement entered by Cahntal Bryant MD - 10/31/24 23:10> I personally evaluated examined this patient telemetry floor patient appears altered mental status he does not respond to verbal stimuli opens his eyes slightly but is moving around gently motion patient has multiple medical problems came to the hospital troponin elevation is of nonspecific changes doubt very much this is acute myocardial infarction however troponin was significantly elevated making it possible that he may have CAD. I do not see a clear indication for angiogram since he is not complain of any chest pain difficult assess the troponin is type I or type II with some instability or ST elevation will consider angiogram emergently but otherwise patient's mental status precludes me from doing angiogram or invasive workup. Continue aspirin and heparin drip. Patient does have clear mind and alert and oriented complaining of any cardiac symptoms will proceed with angiogram otherwise conservative medical management of myocardial infarction or type II troponin elevation to be continued with aspirin and heparin for now subsequently aspirin only.I agree with the treatment plan regulations as documented by PGY 1 Dr. Ga Mcneal will continue to monitor the patient closely tomorrow HPI Data of Consult Requesting Physician: Tony Foster MD Admitting Provider: Max Mosher MD Attending Provider: Tony Foster MD Primary Care Provider: Jose Antonio Donaldson PA-C Consult Narrative History of present illness: Patient is a 78-year-old male with a PMH of diabetes on insulin, hypertension, restless leg syndrome, colon cancer s/p resection, chemo and radiation currently in remission, who was brought to the hospital with a chief complaint of altered mental status. Per the patient's daughter he was seen last normal 2 days ago and when she saw him on the day of admission she noted that his insulin pump was not working and that the battery was . Was is unsure when he last got his insulin. The patient was admitted for management of his hyperglycemic hyperosmolar state. ED course: - Vitals at the time of admission, blood pressure is 173/101 mmHg, pulse rate 118 bpm, respiratory 20/min, temperature 100.7 ?F, SpO2 100% with room air - Labs done at the time of admission showed sodium 132, potassium 6.2, bicarb 19, BUN 36, creatinine 2, glucose 955, A1c 11.7, lactate 5.4, troponin 2.855, beta-hydroxybutyrate 1.8, procalcitonin 0.1, TSH 0.77 - Urine analysis showed 4+ glucosuria. Urine toxicology tested positive for marijuana - VBG showed pH 7.31 - EKG showed sinus tachycardia with no ST and T wave changes - CT chest/abdomen/pelvis/head did not show any significant abnormality. History per chart review: Past medical history: Diabetes mellitus, hypertension, colorectal cancer, restless leg syndrome, COPD Past surgical history: Colon resection Home medications: Atorvastatin Escitalopram Lisinopril Ropinirole Cardiology was consulted due to the patient's elevated troponins. cc:: cc: Tony Foster MD Review of Systems Review of Systems Narrative Review of Systems: Unable to obtain a reliable review of systems due to the patient's mental status. The patient would occasionally respond to voice but was unable to answer questions. Exam Vital Signs Temp Pulse Resp BP Pulse Ox O2 Del Method 97.6 F 84 18 147/80 H 96 Room Air 10/31/24 18:20 10/31/24 18:20 10/31/24 18:20 10/31/24 18:20 10/31/24 18:20 10/31/24 18:20 Narrative Exam General: Frail elderly man, disheveled. Neurologic: Occasionally has spastic movements of his entire body. Opens his eyes to commands occasionally. Responds to voice occasionally. HEENT: Normocephalic, atraumatic, mucous membranes moist. Pupils reactive to light. Heart: Regular rate, irregular rhythm, no murmurs. Lungs: Clear to auscultation bilaterally with no wheezing or crackles. Abdomen: Soft, nondistended, nontender, positive bowel sounds. No guarding or rebound tenderness. 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 No edema. 2+ radial and dorsalis pedis pulses bilaterally. Skin: Warm. Dry. No rash or ecchymoses. Results Labs 10/31/24 04:20 10/31/24 14:05 Labs: Short CBC 10/31/24 Range/Units 04: WBC 10.4 (3.8-10.6) Thou/mm3 Hgb 13.4 L (13.5-16.0) g/dL Hct 44.4 (41.0-53.0) % Plt Count 402 (140-440) Thou/mm3 BMP 10/31/24 10/31/24 10/31/24 04:20 06:50 14:05 Sodium 132 L 142 D 146 H Potassium 6.2 H* 4.8 D 3.8 D Chloride 100 111 H 113 H Carbon Dioxide 19.0 L 20.4 24.4 BUN 36 H 27 H 26 H Creatinine 2.0 H 1.7 H 1.7 H Glucose 955 H* 570 H* D 124 H D Calcium 9.7 8.6 8.9 Cardiac Enzymes 10/31/24 10/31/24 10/31/24 Range/Units 04:20 06:50 14:05 Total Creatine Kinase 207 H (34-171) U/L Troponin I 2.855 H* 7.826 H* D 14.435 H* D (0.0-0.045) ng/mL Liver Function 10/31/24 10/31/24 10/31/24 Range/Units 04:20 06:50 14:05 Total Bilirubin 0.4 0.2 L (0.3-1.2) mg/dL Direct Bilirubin 0.1 (0.0-0.3) mg/dL AST 27 32 (0-34) U/L ALT 14 12 (10-49) U/L Alkaline Phosphatase 68 52 D (46-116) U/L Albumin 4.2 3.8 3.6 (3.4-4.8) gm/dL Urine 10/31/24 Range/Units 04:20 Urine Color Colorless A (Lt Yel-Yel) Urine Clarity Clear (Clear/Hazy) Urine pH 6.0 (5.0-7.0) Ur Specific [place] 1.024 (1.001-1.035) Urine Protein Negative (Neg - Trace) Urine Glucose (UA) 4+ A (Negative) ABG Interpretation ABG results: 10/31/24 10/31/24 10/31/24 06:50 15:30 18:43 VBG pH 7.31 L 7.49 7.41 VBG pCO2 41 28 L D 43 D VBG pO2 53 176 H D 36 D VBG Base Excess -5 L -1 2 Quality Measures Quality Measures none Advance care planning discussed with:: patient and other Medications Home Medications and Allergies Home Medications ?Medication ?Instructions ?Recorded ?Confirmed ?Type atorvastatin 40 mg tablet 40 mg PO QDAY 07/13/1910/31 History escitalopram oxalate 20 mg tablet 20 mg PO QDAY 10/31/24 History ropinirole 2 mg tablet,extended 2 mg PO QDAY 07/13/19 10/31/24 History release 24 hr (Requip XL) valsartan 80 mg tablet (Diovan) 240 mg PO QDAY 0 10/31/24 History lisinopril 10 mg tablet 10 mg PO QDAY 10/31/2410/31 History ropinirole 4 mg tablet 8 mg PO HS 10/31/24 10/31/24 History Allergies Allergy/AdvReac Type Severity Reaction Status Date / Time Penicillins Allergy Unknown RASH Verified 05/02/18 12:00 Visit Medications Acetaminophen (Acetaminophen 325 Mg Tablet) 650 mg PO Q4HR PRN PRN Reason: PAIN SCALE 1-3 (mild Stop: 11/30/24 08:32 Acetaminophen (Acetaminophen Supp 650 Mg Supp) 650 mg [place] Q4HR PRN PRN Reason: PAIN 1-3 OR FEVER > 101 Stop: 11/30/24 17:40 Dextrose (Dextrose 50%-Water Inj 50 Ml Syringe) 25 ml IV Q15MIN PRN PRN Reason: BG 50-70 responsive npo pt Stop: 11/30/24 10:27 Dextrose (Dextrose 50%-Water Inj 50 Ml Syringe) 50 ml IV Q15MIN PRN PRN Reason: BG <50 OR BG <70 & pt unresponsive Stop: 11/30/24 10:27 Glucagon (Glucagon Inj 1 Mg Vial) 1 mg IM Q15MIN PRN PRN Reason: BG <70, and no IV access Heparin Sodium/Dextrose (Heparin In D5w Ivpb) 25,000 unit in 250 mls @ 8.268 mls/hr IV .Q24H PIERCE; Protocol Stop: 11/14/24 15:14 Last Admin: 10/31/24 15:21 Dose: 12 units/kg/hr, 8.268 mls/hr Lactated Ringer's (Lactated Ringers) 1,000 mls @ 75 mls/hr IV .[id number] PIERCE Stop: 11/30/24 15:59 Insulin Human Lispro (Insulin Lispro (Admelog) 1 Unit/0.01 Ml Unit) 0 unit SC Q6H PIERCE; Protocol Stop: 11/30/24 18:14 Last Admin: 10/31/24 18:26 Dose: Not Given Magnesium Hydroxide (Milk Of Magnesia Susp 30 Ml Udc) 30 ml PO QDAY PRN PRN Reason: CONSTIPATION Stop: 11/30/24 08:32 Pantoprazole Sodium (Pantoprazole 40 Mg Tablet) 40 mg PO QDAY PIERCE Stop: 11/30/24 08:59 Last Admin: 10/31/24 09:17 Dose: 40 mg Sodium Chloride (Sodium Chloride Rt Ramya 0.9% 3 Ml Nebu) 3 ml INH PRN PRN PRN Reason: SOLN Stop: 11/30/24 08:37 Last Admin: 10/31/24 08:50 Dose: 3 ml Discontinued Medications Albuterol (Albuterol Rt 2.5 Mg/3 Ml Nebu) 15 mg INH X1 ONE Stop: 10/31/24 06:44 Last Admin: 10/31/24 09:09 Dose: Not Given Albuterol (Albuterol Rt 2.5 Mg/0.5 Ml Nebu) 15 mg INH X1 ONE Stop: 10/31/24 08:39 Last Admin: 10/31/24 08:50 Dose: 15 mg Aspirin (Aspirin 325 Mg Tablet) 325 mg PO X1 ONE Stop: 10/31/24 15:09 Last Admin: 10/31/24 16:12 Dose: 325 mg Calcium Gluconate (Calcium Gluconate 10% Inj 1 Gm/10 Ml Vial) 1 gm IV X1 ONE Stop: 10/31/24 06:44 Last Admin: 10/31/24 07:01 Dose: 1 gm Diazepam (Diazepam Inj 5 Mg/Ml Vial 2 Ml) 10 mg IVP X1 ONE Stop: 10/31/24 04:28 Last Admin: 10/31/24 04:35 Dose: 10 mg Furosemide (Furosemide Inj 10 Mg/Ml Vial 2 Ml) 40 mg IVP X1 ONE Stop: 10/31/24 06:44 Last Admin: 10/31/24 07:00 Dose: 40 mg Heparin Sodium (Porcine) (Heparin Sod Inj 5000 Unit/Ml Vial) 5,000 unit SC Q8HR PIERCE Stop: 11/14/24 13:59 Last Admin: 10/31/24 15:13 Dose: Not Given Heparin Sodium (Porcine) (Heparin Sod Inj 5000 Unit/Ml Vial) 4,000 unit IV X1 ONE; Protocol Stop: 10/31/24 15:09 Last Admin: 10/31/24 15:19 Dose: 4,000 unit Sodium Chloride (Ns) 1,000 mls @ 999 mls/hr IV .Q1H1M ONE Stop: 10/31/24 05:15 Last Infusion: 10/31/24 05:16 Dose: Infused Insulin Human Regular (Myxredlin) 100 unit in 100 mls @ 8.165 mls/hr IV .[id number] PRN; Protocol PRN Reason: PER PROTOCOL Stop: 11/30/24 04:15 Last Titration: 10/31/24 12:23 Dose: 0 unit/kg/hr, 0 mls/hr Ceftriaxone Sodium/Dextrose (Rocephin/D5w 1gm Iv Premix) 1 gm in 50 mls @ 100 mls/hr IV X1 ONE Stop: 10/31/24 05:00 Last Infusion: 10/31/24 05:15 Dose: Infused Acetaminophen (Ofirmev Inj) 1,000 mg in 100 mls @ 250 mls/hr IV X1 ONE Stop: 10/31/24 05:08 Last Infusion: 10/31/24 06:12 Dose: Infused Lactated Ringer's (Lactated Ringers) 1,000 mls @ 999 mls/hr IV .Q1H1M ONE Stop: 10/31/24 05:57 Last Admin: 10/31/24 05:31 Dose: 999 mls/hr Sodium Chloride (Ns) 1,000 mls @ 999 mls/hr IV .Q1H1M ONE Stop: 10/31/24 06:14 Last Infusion: 10/31/24 07:26 Dose: Infused Lactated Ringer's (Lactated Ringers) 1,000 mls @ 125 mls/hr IV .Q8H PIERCE Stop: 11/30/24 10:26 Last Admin: 10/31/24 12:30 Dose: 125 mls/hr Insulin Degludec (Insulin Degludec 5 Unit/0.05 Ml (Per 5 Units)) 30 unit SC X1 ONE; Protocol Stop: 10/31/24 13:17 Last Admin: 10/31/24 15:09 Dose: 30 unit Insulin Human Lispro (Insulin Lispro (Admelog) 1 Unit/0.01 Ml Unit) 0 unit SC ACHS PIERCE; Protocol Stop: 11/30/24 11:29 Last Admin: 10/31/24 17:00 Dose: 2 unit Insulin Human Lispro (Insulin Lispro (Admelog) 1 Unit/0.01 Ml Unit) 0 unit SC Q6H PIERCE; Protocol Stop: 11/30/24 18:14 Insulin Human Regular (Insulin Hum Regular 1 Unit/0.01 Ml (Per Unit)) 10 unit IV X1 ONE Stop: 10/31/24 04:16 Last Admin: 10/31/24 04:26 Dose: 10 unit Insulin Isophane/Insulin Regular (Insulin 70/30 1 Unit/0.01 Ml (Per Unit)) 12 unit SC X1 ONE Stop: 10/31/24 10:28 Insulin Isophane/Insulin Regular (Insulin 70/30 1 Unit/0.01 Ml (Per Unit)) 8 unit SC X1 ONE Stop: 10/31/24 10:28 Last Admin: 10/31/24 11:26 Dose: 8 unit Ketorolac Tromethamine (Ketorolac Inj 30 Mg/Ml Vial) 30 mg IVP X1 ONE Stop: 10/31/24 04:46 Last Admin: 10/31/24 05:31 Dose: 30 mg Ondansetron HCl (Ondansetron Inj 2 Mg/Ml Inj 2 Ml) 4 mg IVP X1 ONE; Protocol Stop: 10/31/24 04:16 Last Admin: 10/31/24 04:25 Dose: 4 mg Sodium Polystyrene Sulfonate (Sod Polystyrene Sulfon Susp 15 Gm/60 Ml Btl) 30 gm PO X1 ONE Stop: 10/31/24 06:44 Last Admin: 10/31/24 07:01 Dose: 30 gm Assessment & Plan Plan Patient is a 78-year-old male with a PMH of diabetes on insulin, hypertension, restless leg syndrome, colon cancer s/p resection, chemo and radiation currently in remission, who was brought to the hospital with a chief complaint of altered mental status. The patient was admitted for management of his hyperglycemic hyperosmolar state. Cardiology was consulted due to the patient's elevated troponins. #Elevated troponins #NSTEMI type II * The patient's troponins up trended from 2.8 to 7.8 to 14.4 * The patient was able to clearly deny chest pain, palpitations, and shortness of breath upon questioning * Most recent EKG was negative for any acute ST segment changes Plan: * Cardiology team is not recommending cath at this time due to the patient's mental status * Absence of acute ST segment changes on EKG and the patient's denial of being short of breath or having any chest pain are the other reasons for cath not being recommended * Continue heparin drip * Trend troponins * Maintain K>4.0, Mg>2.0 * Echo ordered #Hyperosmotic hyperglycemic state 2/2 #Acute encephalopathy 2/2 HHS #Diabetes mellitus type 1 # Non-anion gap metabolic #Hyperkalemia #RAMBO on CKD #RAMBO likely prerenal in the setting of HHS #Depression #Restless leg syndrome #COPD #Colon cancer in remission The rest of the patient's hospital problems will be managed per the primary team. The patient was seen and discussed with my attending physician Dr. Bryant. Ga Mcneal DO PGY-1
[2024-10-31] MEDS: RINGERS LACTATED 1000 ML 1,000 ML 75 ML IV (20:46)
[2024-10-31 22:17] LABS: Glucose 71 mg/dL (74-106); Partial Thromboplastin Time 41.8 Seconds (22.0-36.0); Troponin I 9.783 ng/mL (0.0-0.045)
[2024-10-31] MEDS: HEPARIN SOD INJ 5000 UNIT/ML VIAL 2000 UNIT IV (23:51)
[2024-11-01] VITALS (12 sets, daily range): BP systolic 103–149; BP diastolic 60–92; PULSE 69–106; RESP 15–96; TEMP 36.1–36.5; O2SAT 94–98
[2024-11-01 03:03] LABS: Troponin I 7.231 ng/mL (0.0-0.045)
[2024-11-01] MEDS: DEXTROSE 50%-WATER INJ 50 ML SYRINGE IV ×2 (04:24→07:40)
--- NOTE | 2024-11-01 05:04 | PC.WOUND ---
Made Dr. Hines aware of patient not voiding since leiva catheter removal on 10/31/24 at 1613 order to do in and out catheter if Bladder scan equal to or greater than 340 cc. inital bladder scan was 146, at approx 0440 bladder scan due to patient not voiding. 256 cc . no new orders. notified MD of hypoglycemic event blood sugar 44 mg/dL . initiated hypoglycemic protocol and PRN medication. s/p IV dextrose blood sugar 141 mg/dL
[2024-11-01 06:19] LABS: Basophils # (Auto) 0.1 Thou/mm3 (0.0-0.2); Basophils % (Auto) 1 % (0-2.5); Eosinophils # (Auto) 0.3 Thou/mm3 (0.0-0.5); Eosinophils % (Auto) 3 % (0-10); Hematocrit 35.6 % (41.0-53.0); Hemoglobin 11.3 g/dL (13.5-16.0); Immature Granulocytes Auto 0.02 Thou/mm3 (0.00-0.00); Lymphocytes # (Auto) 1.9 Thou/mm3 (1.0-4.8); Lymphocytes % (Auto) 17 % (10-50); Mean Corpuscular HGB Conc 31.7 g/dl (31.0-37.0); Mean Corpuscular Hemoglobin 26.8 pg (25.0-35.0); Mean Corpuscular Volume 85 fL (80-100); Monocytes # (Auto) 0.5 Thou/mm3 (0.0-0.8); Monocytes % (Auto) 5 % (0-12); Neutrophils # (Auto) 8.3 Thou/mm3 (1.8-7.7); Neutrophils % (Auto) 75 % (37-80); Nucleated Red Blood Cell # 0.00 Thou/mm3 (0.00-0.00); Nucleated Red Blood Cell % 0 /100 WBC (0); Platelet Count 207 Thou/mm3 (140-440); RDW Standard Deviation 46.6 fL (35.1-43.9); Red Blood Count 4.21 Miln/mm3 (4.50-5.90); White Blood Count 11.1 Thou/mm3 (3.8-10.6)
--- NOTE | 2024-11-01 06:19 | PC.WOUND ---
made Dr. Gonzales aware of Patients EKG strip of 0400 changes . T wave inversion. no new orders. to notify day team
[2024-11-01 06:44] LABS: Folate 7.79 ng/mL (>5.38); Vitamin B12 211 pg/mL (211-911)
[2024-11-01 06:53] LABS: Alanine Aminotransferase 10 U/L (10-49); Albumin, Serum 3.0 gm/dL (3.4-4.8); Albumin/Globulin Ratio 1.5 (1.2-2.2); Alkaline Phosphatase 42 U/L (46-116); Anion Gap 9 (7-16); Aspartate Amino Transferase 32 U/L (0-34); BUN/Creatinine Ratio 19 Ratio (12-20); Bilirubin,Total 0.3 mg/dL (0.3-1.2); Blood Urea Nitrogen 27 mg/dL (9-23); Calcium 8.5 mg/dL (8.3-10.6); Calcium (Corrected) 9.3 mg/dL (8.5-10.1); Carbon Dioxide 26.2 mMol/L (20.0-31.0); Chloride 111 mMol/L (98-107); Creatinine (Component) 1.4 mg/dL (0.6-1.3); Estimated Creatinine Clearance 40.9 mL/min (>60); Globulin 2.0 gm/dL (2.3-3.5); Glucose 108 mg/dL (74-106); Magnesium 1.8 mg/dL (1.6-2.6); Osmolality,Calculated 296 (275-295); Phosphorous 2.9 mg/dL (2.4-5.1); Potassium 3.4 mMol/L (3.4-5.1); Sodium 146 mMol/L (136-145); Total Protein 5.0 gm/dL (5.7-8.2); eGFR 52 See Note
--- NOTE | 2024-11-01 07:23 | PC.NURSE ---
Dr. Vasquez aware pt. reports feeling like my sugar is low. rechecked pt. glucose and it was 35. pt. is alert and oriented, talking. Dr. rodriguez pt. given carbs and stat lab draw order entered per protocol. RN inquires if OK to give PRN D50, Dr. Vasquez orders I will get back to you.
[2024-11-01 07:46] LABS: Partial Thromboplastin Time 51.3 Seconds (22.0-36.0)
[2024-11-01] MEDS: ASPIRIN EC 81 MG TABEC PO (08:00)
[2024-11-01] MEDS: PANTOPRAZOLE 40 MG TABLET PO (08:00)
[2024-11-01] MEDS: Magnesium Sulfate 2 GM Ivpb 2 GM/50 ML BAG IV (08:35)
--- NOTE | 2024-11-01 08:41 | PD.RESPRO ---
Documentation for date of: 11/01/24 Subjective Subjective Interval history: history provided by daughter Lambert, pt is intermittently somnolent and oriented x1. Mr. Maynard is a 78-year-old gentleman with a past medical history significant for poorly controlled type 2 diabetes mellitus not on insulin- a1c 11.7, COPD, depression, query dementia, colon cancer in remission (s/p chemo, and resection), restless leg syndrome, who was found naked and down by his daughter Lambert, with AMS and brought in to the emergency department. He lives alone. he was found to have a blood glucose of 955 mg/dL, lactic acid of 5.4 mmol/L, and hemoglobin A1c of 11.7%. No prior history of dialysis or advanced chronic kidney disease is documented. The patient is unable to provide reliable history due to his mental status, history provided by daughter, Lambert. ED course Dx - WBC wnl, VBG with pH 7.31, Na 146, K 6.2, Cl 111, CO2 19, BUN 36, Cr 2.0, Glucose 955, A1c 11.7, Lactic acid 5.4, Troponin 7.8, BNP 194, Beta hydroxybutyrate 1.8, Procalcitonin wnl, TSH wnl, Utox + marijuana UA4+ glucose, 1+ ketones - EKG@0400 initially with sinus tachycardia to 110s, and nonspecific ST changes, Repeat EKG with mild T peaked T waves 2 in V3? (not uploaded in chart) - CT head- Negative for acute hemorrhage, mass effect or midline shift - CT neck- no acute fractures - CTAP- unremarkable, Right internal jugular Port-A-Cath tip satisfactory position, Large retrocardiac gastric hernia Tx - 10 units insulin - Insulin drip - 2L NS - 1L LR - Ca gluconate 1 gm - Albuterol 15 - Ceftriaxone 1 gm - Lasix 40 mg IV 1x - Diazapam 10 mg PMH HTN, T1 vs T2 DM on insulin pump, COPD, restless leg syndrome, depression, colon cancer in remission, dementia? R ear deaf, malnutrition? 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 Social Hx: lives with independently (daughter lambert checks in on him occasionally), query smoking hx?, marijuana use, Etoh use (quit > 40 years ago) Medications: pending reconcilation, daughter will bring in medications ROS, unable to obtain given, pt mental status. 10/31/2024: Pt admitted to ICU, Nephrology consulted, Patient seen and examined in the ICU, Daughter Lambert at bedside, pt is intermittently somnolent, arousable to voice and touch, pt oriented to self. On exam pt appears frail with temporal wasting and with poor hygeine. Pt appears hypovolemic, lungs clear to auscultation, no peripheral edema, Schroeder in place draining clear urine. pt is on insulin drip and IVF, blood sugars are downtrending, 141 from 600s. 11/01/2024: pt downgraded from the ICU yesterday, pt had 2 episodes of asymptomatic hypoglycemia to 30s/40s. 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 Pt reports that he doesnt know whether he has type 1 or type 2 dm, (pending c peptide) he is asking about the sensor that he used to have on his L arm. Finger BS, 248 after IV dextrose given. Pt appears hypovolemic on exam, recommended give 1/2 NS 1L bolus. Exam Vital Signs Temp Pulse Resp BP Pulse Ox O2 Del Method 97.7 F 91 22 H 149/61 H 94 L Room Air 11/01/24 08:28 11/01/24 08:28 11/01/24 08:28 11/01/24 08:28 11/01/24 08:28 11/01/24 08:28 Narrative Exam GENERAL: no acute distress, AAO x3,sitting upright in bed HEENT: Head AT/ NC. Mucous membranes dry. NECK: Supple, no lymphadenopathy,. CARDIOVASCULAR: RRR. Normal S1/S2, No m/r/g. No pitting edema of bilateral LEs. RESPIRATORY: CTAB. No wheezing, rhonchi, crackles. prolonged expiratory phase. GASTROINTESTINAL: Abdomen soft, non tender no palpable masses. Bowel sounds present , sensor on LUQ, MUSCULOSKELETAL:? No cyanosis or edema, no visible joint swelling. LUE with index finger with pip amputation, extremities are less restless today compared to prior, moving LE spontaneously. NEUROLOGICAL: CN not assessed, No focal deficits. Sensation intact, symmetric. PSYCHIATRIC: Awake and alert, not agitated, normal mood and affect. SKIN: No obvious rashes, no jaundice, normal turgor, excoriations of LE on shins, feet and toes are dirty. with nails black. Objective Labs 11/02/24 05:21 11/02/24 05:21 Labs: Laboratory Results - last 24 hr 10/31/24 10/31/24 10/31/24 14:05 15:30 17:59 WBC RBC Hgb Hct MCV MCH MCHC RDW Std Deviation Plt Count Neut % (Auto) Lymph % (Auto) Floyd % (Auto) Eos % (Auto) Baso % (Auto) Neut # (Auto) Lymph # (Auto) Floyd # (Auto) Eos # (Auto) Baso # (Auto) Immature Gran # (Auto) Absolute Nucleated RBC Immature Gran % Nucleated RBC % APTT VBG pH 7.49 VBG pCO2 28 L D VBG pO2 176 H D VBG O2 Sat (Hortencia) 100 H D VBG Base Excess -1 Sodium 146 H Potassium 3.8 D Chloride 113 H Carbon Dioxide 24.4 Anion Gap 9 BUN 26 H Creatinine 1.7 H Estim Creat Clear Calc 31.0 L eGFR 41 L BUN/Creatinine Ratio 15 Glucose 124 H D Calculated Osmolality 296 H Lactic Acid 2.8 H 3.1 H Calcium 8.9 Corrected Calcium 9.2 Phosphorus 2.6 Magnesium 1.8 Total Bilirubin AST ALT Alkaline Phosphatase Troponin I 14.435 H* D Total Protein Albumin 3.6 Globulin Albumin/Globulin Ratio Vitamin B12 Folate 10/31/24 10/31/24 11/01/24 18:43 21:09 02:15 WBC RBC Hgb Hct MCV MCH MCHC RDW Std Deviation Plt Count Neut % (Auto) Lymph % (Auto) Floyd % (Auto) Eos % (Auto) Baso % (Auto) Neut # (Auto) Lymph # (Auto) Floyd # (Auto) Eos # (Auto) Baso # (Auto) Immature Gran # (Auto) Absolute Nucleated RBC Immature Gran % Nucleated RBC % APTT 41.8 H D VBG pH 7.41 VBG pCO2 43 D VBG pO2 36 D VBG O2 Sat (Hortencia) 72 L D VBG Base Excess 2 Sodium 147 H Potassium 3.6 Chloride 114 H Carbon Dioxide 26.0 Anion Gap 7 BUN 27 H Creatinine 1.6 H Estim Creat Clear Calc 32.9 L eGFR 44 L BUN/Creatinine Ratio 17 Glucose Not Performed. 71 L D Calculated Osmolality 295 Lactic Acid Calcium 9.1 Corrected Calcium 9.6 Phosphorus 2.7 Magnesium Total Bilirubin AST ALT Alkaline Phosphatase Troponin I 9.783 H* D 7.231 H* D Total Protein Albumin 3.4 Globulin Albumin/Globulin Ratio Vitamin B12 Folate 11/01/24 05:28 WBC 11.1 H RBC 4.21 L Hgb 11.3 L D Hct 35.6 L MCV 85 MCH 26.8 MCHC 31.7 RDW Std Deviation 46.6 H Plt Count 207 D Neut % (Auto) 75 Lymph % (Auto) 17 Floyd % (Auto) 5 Eos % (Auto) 3 Baso % (Auto) 1 Neut # (Auto) 8.3 H Lymph # (Auto) 1.9 Floyd # (Auto) 0.5 Eos # (Auto) 0.3 Baso # (Auto) 0.1 Immature Gran # (Auto) 0.02 H Absolute Nucleated RBC 0.00 Immature Gran % 0 Nucleated RBC % 0 APTT 51.3 H VBG pH VBG pCO2 VBG pO2 VBG O2 Sat (Hortencia) VBG Base Excess Sodium 146 H Potassium 3.4 Chloride 111 H Carbon Dioxide 26.2 Anion Gap 9 BUN 27 H Creatinine 1.4 H Estim Creat Clear Calc 40.9 L eGFR 52 L BUN/Creatinine Ratio 19 Glucose 108 H D Calculated Osmolality 296 H Lactic Acid Calcium 8.5 Corrected Calcium 9.3 Phosphorus 2.9 Magnesium 1.8 Total Bilirubin 0.3 AST 32 ALT 10 Alkaline Phosphatase 42 L Troponin I Total Protein 5.0 L Albumin 3.0 L Globulin 2.0 L Albumin/Globulin Ratio 1.5 Vitamin B12 211 Folate 7.79 ABG Interpretation ABG results: 10/31/24 10/31/24 10/31/24 06:50 15:30 18:43 VBG pH 7.31 L 7.49 7.41 VBG pCO2 41 28 L D 43 D VBG pO2 53 176 H D 36 D VBG Base Excess -5 L -1 2 Quality Measures Quality Measures none Advance care planning discussed with:: patient Assessment & Plan Assessment Current Active Medications: Generic Name Dose Route Start Last Admin Trade Name Freq PRN Reason Stop Dose Admin Acetaminophen 650 mg 10/31/24 08:33 Acetaminophen 325 Mg Tablet PO 11/30/24 08:32 Q4HR PRN PAIN SCALE 1-3 (mild Acetaminophen 650 mg 10/31/24 17:41 Acetaminophen Supp 650 Mg Supp MS 11/30/24 17:40 Q4HR PRN PAIN 1-3 OR FEVER > 101 Aspirin 81 mg 11/01/24 09:00 11/01/24 08:00 Aspirin Ec 81 Mg Tabec PO 12/01/24 08:59 81 mg QDAY PIERCE Administration Atorvastatin Calcium 80 mg 11/01/24 21:00 Atorvastatin Calcium 20 Mg Tablet PO 12/01/24 20:59 HS PIERCE Dextrose 25 ml 10/31/24 10:28 Dextrose 50%-Water Inj 50 Ml Syringe IV 11/30/24 10:27 Q15MIN PRN BG 50-70 responsive npo pt Dextrose 50 ml 10/31/24 10:28 11/01/24 07:40 Dextrose 50%-Water Inj 50 Ml Syringe IV 11/30/24 10:27 50 ml Q15MIN PRN Administration BG <50 OR BG <70 & pt unresponsive Glucagon 1 mg 10/31/24 10:28 Glucagon Inj 1 Mg Vial IM Q15MIN PRN BG <70, and no IV access Heparin Sodium/Dextrose 25,000 unit in 250 mls @ 8.268 mls/hr 10/31/24 15:15 11/01/24 08:33 Heparin In D5w Ivpb IV 11/14/24 15:14 14 units/kg/hr .Q24H PIERCE 9.646 mls/hr Titration Protocol 12 UNITS/KG/HR Lactated Ringer's 1,000 mls @ 75 mls/hr 10/31/24 16:00 10/31/24 20:46 Lactated Ringers IV 11/30/24 15:59 75 mls/hr .[id number] PIERCE Administration Magnesium Sulfate 2 gm in 50 mls @ 25 mls/hr 11/01/24 07:50 11/01/24 08:35 Magnesium Sulfate Ivpb IV 11/01/24 09:49 25 mls/hr X1 ONE Administration Insulin Human Lispro 0 unit 10/31/24 22:38 11/01/24 05:33 Insulin Lispro (Admelog) 1 Unit/0.01 Ml Unit SC 11/30/24 22:37 Not Given Q6HR PIERCE Protocol Magnesium Hydroxide 30 ml 10/31/24 08:33 Milk Of Magnesia Susp 30 Ml Udc PO 11/30/24 08:32 QDAY PRN CONSTIPATION Pantoprazole Sodium 40 mg 10/31/24 09:00 11/01/24 08:00 Pantoprazole 40 Mg Tablet PO 11/30/24 08:59 40 mg QDAY PIERCE Administration Sodium Chloride 3 ml 10/31/24 08:38 10/31/24 08:50 Sodium Chloride Rt Ramya 0.9% 3 Ml Nebu INH 11/30/24 08:37 3 ml PRN PRN Administration SOLN Plan Mr Maynard is a 78 yo gentlmeman with a hx of HTN and Type 1vs type 2 DM with insulin pump (a1c 11.7), COPD (prescribed O2, but not using) who was found down by his daughter lambert and brought in, found to have severe hyperglycemia consistent with HHS, EKG with nonspecific ST changes, troponin uptrending, query NSTEMI type II, and RAMBO likely prerenal 2/2 hypovolemia admitted to the ICU for managment med reconciliation pending (daughter lambert will bring in medications) #RAMBO- likely prerenal hypovolemia in setting of #HHS- resolving 2.0 now 1.7 after IVF egfr 41 in setting of HHS, pt likely had profound intravascular volume depletion 2/2 severe osmotic diuresis, on 11/01 pt appears very hypovolemic on exam. dry mucus membranes, UOP is 1200, Plan - IV fluids see #hypernatremia below - avoid nephrotoxic agents - renally dose medications #[place]ong[place] metabolic acidosis #hypernatremia #hyperkalemia #Hyperchloremia #query RTA type 4 Lactic Acid 5.1 from 5.4 down to 3.1 Bicarb 20, hyperchloremia 111 On 11/01 Cr 1.4 from 1.7, BUN 27 gfr 52, appears hypovoelmic on exam Free water deficit 1.5L -recommend 1/2 NS 1L bolus #AMS 2/2- resolved #Severe hyperglycemia consistent with HHS- resolved #glucosuria #T2DM vs T1DM on insulin pump #asymptomatic episodes of hypogylcemia to 30s A1c : 11.7, Serum glucose 955 now 570, Finger Blood Sugar 600s, now 141 Corrected Na: 167 (Serum Na 146, Serum glucose 955: Measured sodium + 0.024 * (Serum glucose - 100)) Serum osm 320, VBG ph 3.1, Bicarb 20, UA with 4+ glucose, 1+ ketones, Beta hydroxy buterate 1.8 AMS likely 2/2 HHS, suspect metabolic derrangements contributing to pts AMS ammonia levels < 10, TSH wnl, low level of suspicion for infxn etiologies given pt is afebrile, wbc wnl, procalcitoin wnl , low level of suspician for stuctural etiologies given CT head negative, query toxins although lower on ddx. given pt reports hx of having taken metformin in when he was initially diagnosed, query converson of T2DM to T1 vs Latent auto immune diabetes in adults. 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 Hortencia Pugh MD Internal Medicine PGY-1 Attending Provider Attestation/Addendum Patient seen and examined with resident physician Dr. Pugh. Note reviewed, agree with findings and recommendations. Spoke to daughter Harriet Patient admitted with hyperosmolar hyperglycemic coma. Blood sugar 959. Agree with IV insulin, IV fluids 11/01 Hyperkalemia better with fluids. RAMBO from prerenal azotemia. Will monitor closely. Patient has insulin pump and Continuous glucose monitoring. Patient might benefit from going to rehab.
--- NOTE | 2024-11-01 09:06 | PC.NURSE ---
Per Dr. Benedict leave glucose checks and insulin q6h for now even though pt. is eating to monitor glucose levels closely.
[2024-11-01 09:35] LABS: Glucose 227 mg/dL (74-106)
[2024-11-01 09:56] LABS: Troponin I 5.608 ng/mL (0.0-0.045)
[2024-11-01] MEDS: RINGERS LACTATED 1000 ML 1,000 ML 75 ML IV ×2 (11:17→23:13)
[2024-11-01] MEDS: INSULIN LISPRO (AdmeLOG) 1 UNIT/0.01 ML UNIT SC (11:37)
--- NOTE | 2024-11-01 13:44 | ESPR_ITS ---
Documentation for date of: 11/01/24 Subjective Subjective Interval history: Overnight patient was afebrile, troponin downtrended. Today patient was seen and examined at bedside. Patient mentation improved significantly from admission, now alert oriented x 2 (to person and place) AM labs reviewed. Significant for hypoglycemia of 35, drank juice/carbs, BG was still in 39, then administered IV dextroses and blood glucose improve significantly. Blood glucose level is still uptrending, continue to monitor Vitals are unremarkable except for blood pressure of 136/68. Insulin sliding scale from step 3 to step 2. Exam Vital Signs Temp Pulse Resp BP Pulse Ox O2 Del Method 97.7 F 90 17 136/68 H 98 Room Air 11/01/24 13:00 11/01/24 13:00 11/01/24 13:00 11/01/24 13:00 11/01/24 13:00 11/01/24 13:00 Narrative Exam Physical Exam General: Disheveled, fingernails with visible subungual dirt bilaterally, suggestive of poor hygiene. Non-toxic appearing. HEENT: Normocephalic, atraumatic, mucous membranes dry. Heart: Regular rate and rhythm, normal S1 and S2, no murmurs. Lungs: Clear to auscultation with no wheezing or crackles. Abdomen: Soft, nondistended, nontender, positive bowel sounds. ?No guarding or rebound tenderness. Neurologic: Alert and oriented x2 (improving), no gross neurological deficit, and patient able to move all 4 extremities. 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 Skin: No rash or ecchymoses. Objective Labs 11/02/24 05:21 11/02/24 05:21 Labs: Laboratory Results - last 24 hr 10/31/24 10/31/24 10/31/24 14:05 15:30 17:59 WBC RBC Hgb Hct MCV MCH MCHC RDW Std Deviation Plt Count Neut % (Auto) Lymph % (Auto) Holt % (Auto) Eos % (Auto) Baso % (Auto) Neut # (Auto) Lymph # (Auto) Holt # (Auto) Eos # (Auto) Baso # (Auto) Immature Gran # (Auto) Absolute Nucleated RBC Immature Gran % Nucleated RBC % APTT VBG pH 7.49 VBG pCO2 28 L D VBG pO2 176 H D VBG O2 Sat (Hortencia) 100 H D VBG Base Excess -1 Sodium 146 H Potassium 3.8 D Chloride 113 H Carbon Dioxide 24.4 Anion Gap 9 BUN 26 H Creatinine 1.7 H Estim Creat Clear Calc 31.0 L eGFR 41 L BUN/Creatinine Ratio 15 Glucose 124 H D Calculated Osmolality 296 H Lactic Acid 2.8 H 3.1 H Calcium 8.9 Corrected Calcium 9.2 Phosphorus 2.6 Magnesium 1.8 Total Bilirubin AST ALT Alkaline Phosphatase Troponin I 14.435 H* D Total Protein Albumin 3.6 Globulin Albumin/Globulin Ratio Vitamin B12 Folate 10/31/24 10/31/24 11/01/24 18:43 21:09 02:15 WBC RBC Hgb Hct MCV MCH MCHC RDW Std Deviation Plt Count Neut % (Auto) Lymph % (Auto) Holt % (Auto) Eos % (Auto) Baso % (Auto) Neut # (Auto) Lymph # (Auto) Holt # (Auto) Eos # (Auto) Baso # (Auto) Immature Gran # (Auto) Absolute Nucleated RBC Immature Gran % Nucleated RBC % APTT 41.8 H D VBG pH 7.41 VBG pCO2 43 D VBG pO2 36 D VBG O2 Sat (Hortencia) 72 L D VBG Base Excess 2 Sodium 147 H Potassium 3.6 Chloride 114 H Carbon Dioxide 26.0 Anion Gap 7 BUN 27 H Creatinine 1.6 H Estim Creat Clear Calc 32.9 L eGFR 44 L BUN/Creatinine Ratio 17 Glucose Not Performed. 71 L D Calculated Osmolality 295 Lactic Acid Calcium 9.1 Corrected Calcium 9.6 Phosphorus 2.7 Magnesium Total Bilirubin AST ALT Alkaline Phosphatase Troponin I 9.783 H* D 7.231 H* D Total Protein Albumin 3.4 Globulin Albumin/Globulin Ratio Vitamin B12 Folate 11/01/24 11/01/24 05:28 08:39 WBC 11.1 H RBC 4.21 L Hgb 11.3 L D Hct 35.6 L MCV 85 MCH 26.8 MCHC 31.7 RDW Std Deviation 46.6 H Plt Count 207 D Neut % (Auto) 75 Lymph % (Auto) 17 Holt % (Auto) 5 Eos % (Auto) 3 Baso % (Auto) 1 Neut # (Auto) 8.3 H Lymph # (Auto) 1.9 Holt # (Auto) 0.5 Eos # (Auto) 0.3 Baso # (Auto) 0.1 Immature Gran # (Auto) 0.02 H Absolute Nucleated RBC 0.00 Immature Gran % 0 Nucleated RBC % 0 APTT 51.3 H VBG pH VBG pCO2 VBG pO2 VBG O2 Sat (Hortencia) VBG Base Excess Sodium 146 H Potassium 3.4 Chloride 111 H Carbon Dioxide 26.2 Anion Gap 9 BUN 27 H Creatinine 1.4 H Estim Creat Clear Calc 40.9 L eGFR 52 L BUN/Creatinine Ratio 19 Glucose 108 H D 227 H D Calculated Osmolality 296 H Lactic Acid Calcium 8.5 Corrected Calcium 9.3 Phosphorus 2.9 Magnesium 1.8 Total Bilirubin 0.3 AST 32 ALT 10 Alkaline Phosphatase 42 L Troponin I 5.608 H* D Total Protein 5.0 L Albumin 3.0 L Globulin 2.0 L Albumin/Globulin Ratio 1.5 Vitamin B12 211 Folate 7.79 ABG Interpretation ABG results: 10/31/24 10/31/24 10/31/24 06:50 15:30 18:43 VBG pH 7.31 L 7.49 7.41 VBG pCO2 41 28 L D 43 D VBG pO2 53 176 H D 36 D VBG Base Excess -5 L -1 2 Quality Measures Quality Measures none Advance care planning discussed with:: patient and child Assessment & Plan Assessment Current Active Medications: Generic Name Dose Route Start Last Admin Trade Name Freq PRN Reason Stop Dose Admin Acetaminophen 650 mg 10/31/24 08:33 Acetaminophen 325 Mg Tablet PO 11/30/24 08:32 Q4HR PRN PAIN SCALE 1-3 (mild Acetaminophen 650 mg 10/31/24 17:41 Acetaminophen Supp 650 Mg Supp PA 11/30/24 17:40 Q4HR PRN PAIN 1-3 OR FEVER > 101 Aspirin 81 mg 11/01/24 09:00 11/01/24 08:00 Aspirin Ec 81 Mg Tabec PO 12/01/24 08:59 81 mg QDAY PIERCE Administration Atorvastatin Calcium 80 mg 11/01/24 21:00 Atorvastatin Calcium 20 Mg Tablet PO 12/01/24 20:59 HS PIERCE Dextrose 25 ml 10/31/24 10:28 Dextrose 50%-Water Inj 50 Ml Syringe IV 11/30/24 10:27 Q15MIN PRN BG 50-70 responsive npo pt Dextrose 50 ml 10/31/24 10:28 11/01/24 07:40 Dextrose 50%-Water Inj 50 Ml Syringe IV 11/30/24 10:27 50 ml Q15MIN PRN Administration BG <50 OR BG <70 & pt unresponsive Glucagon 1 mg 10/31/24 10:28 Glucagon Inj 1 Mg Vial IM Q15MIN PRN BG <70, and no IV access Heparin Sodium/Dextrose 25,000 unit in 250 mls @ 8.268 mls/hr 10/31/24 15:15 11/01/24 08:33 Heparin In D5w Ivpb IV 11/14/24 15:14 14 units/kg/hr .Q24H PIERCE 9.646 mls/hr Titration Protocol 12 UNITS/KG/HR Lactated Ringer's 1,000 mls @ 75 mls/hr 10/31/24 16:00 11/01/24 11:17 Lactated Ringers IV 11/30/24 15:59 75 mls/hr .[id number] PIERCE Administration Insulin Human Lispro 0 unit 10/31/24 22:38 11/01/24 11:37 Insulin Lispro (Admelog) 1 Unit/0.01 Ml Unit SC 11/30/24 22:37 4 unit Q6HR PIERCE Administration Protocol Magnesium Hydroxide 30 ml 10/31/24 08:33 Milk Of Magnesia Susp 30 Ml Udc PO 11/30/24 08:32 QDAY PRN CONSTIPATION Pantoprazole Sodium 40 mg 10/31/24 09:00 11/01/24 08:00 Pantoprazole 40 Mg Tablet PO 11/30/24 08:59 40 mg QDAY PIERCE Administration Sodium Chloride 3 ml 10/31/24 08:38 10/31/24 08:50 Sodium Chloride Rt Ramya 0.9% 3 Ml Nebu INH 11/30/24 08:37 3 ml PRN PRN Administration SOLN Plan Mr. John is a 78-year-old male with past medical history of poorly controlled type 1 diabetes, COPD, depression, colon cancer in remission (s/p chemo and resection), restless leg syndrome brought into the ED on 10/31/2024 for altered mental status and was found to have a glucose of 955, A1c of 11.7 and lactic acid of 5.4. Admitted for management of hyperosmotic hyperglycemic state and altered mental status. #Hyperosmotic hyperglycemic state 2/2 # Acute encephalopathy 2/2 HHS #Diabetes mellitus type 1 # Non-anion gap metabolic #Hyperkalemia Patient has a history of type 1 diabetes which was managed on insulin pump. Noncompliant since pump broke. Findings consistent with hyperosmolar hyperglycemic state: Pt dehydrated, blood glucose 955, A1c 11.7. Non anion gap acidosis on admision, VBG ph7.31, bicarb 19.UA trace of glucose (4+), ketones (1+), beta-hydroxybutyrate 1.8. Also mental status is altered. He is in a state of of nonacidotic hyperglycemia, that is improving. Lactic acid from 5.4-5.1. Na 146, K 6.2 Received calcium 1gm gluconate, albuterol, ceftriaxone 1 g swallow test if positive, no need to change diet to n.p.o. Plan - Glucose checks Q6h - Monitor mentation - Insulin sliding scale to step 3 to step 2 - Recheck serum potassium after lunch - Renal panel ordered for 6 PM, if sodium keeps increasing switch from LR to 0.45 NS - Continue to monitor lactate, if increase give more fluids - Glucagon injection 1 mg - Magnesium, phosphate ordered - Seizure and aspiration precaution - Referral dietitian #Elevated Troponins #NSTEMI type 1 vs Type 2 Uptrending troponin 2.855>7.826> 14.435. Does not report active chest pain at the moment. EKG showed ST deviation and moderate T wave abnormality, possible ischemia present. BNP elevated 194. Does not have a back tender cloth printing. Meets SIRS criteria with 3/4: tachypnea with RR 22, Fever 101F, tachycadiac HR 109 endorgan damage. urine tox is positive for Marijuana only Plan -Pt is starte don heparin drip as per ACS protocol and given loading dose of Aspirin 325. - Will Trend troponins until downtrended -Cardiac echo pending -Cardiology is consulted, appreciate recommendations -no recommending cath at this time due to patient fluctuating mentation -Hemoglobin A1c -TSH level -Maintain potassium >4.0 and magnesium >2.0 #RAMBO on CKD #RAMBO likely prerenal in the setting of [facility] #Hypernatremia On admission Cr is 1.6 and GFR 44, baseline Cr 1.3, likely pre-renal in the setting of [facility] Plan - Continue iv fluid resuscitation per [facility] protocol - Monitor Na and switch to .45 NS if needed, to avoid worsening hypernatremia - Avoid nephrotoxic agents - Renally dose medications - Nephrology consult, rec appreciated # Depression Pressure the patient has depression which is managed with home med escitalopram Plan - Due to pt's somnolence, will hold home escitalopram and will resume once pt is more awake and alert. - Pending med rec, done #Restless leg syndrome Per chart review history of restless leg syndrome on home med ropinirole 8mg PO HS Plan - Pending med rec, completed #COPD Patient has a history of COPD on home O2 pt has history of COPD per daughter. Saturating well on room air Plan -Monitor O2 sat #Colon cancer in remission (s/p chemo and resection) - Follow-up outpatient with oncology Hospital management: Lines: peripheral IV Diet: Carbohydrate consistent low Bowel: Milk of Mg supp GI prophylaxis: Protonix 40 po DVT prophylaxis: Heparin Disposition: tele for management of HHS and AMS CODE STATUS: Full code Patient seen and assessed under supervision of attending physician and discuss with senior resident Dr. Benedict PGY-2 Carolina Vasquez MD PGY-1, Internal Medicine Attending Provider Attestation/Addendum I attest that I was physically present for the evaluation, physical examination, lab and imaging review of the patient with the residents. I discussed the case with the residents and agree with the findings and plans of care as documented above. Tony Foster MD
--- NOTE | 2024-11-01 15:28 | PC.SS ---
Per afternoon rounding notes, there is no current d/c date as medical team is tryign to control the pts blood sugars. Pt will stay at this time, goal is to get blood sugar down.
--- NOTE | 2024-11-01 15:32 | PC.SS ---
ASW attempted to meet with pt, but he was sleeping. ASW called pts daughter Lambert John, but she did not answer the phone. ASW left a voice message requesting a return call.
--- NOTE | 2024-11-01 15:43 | PC.NURSE ---
Called to confirm that Lab collected PTT. sonography technician states yes I have it here.
[2024-11-01 16:05] LABS: Partial Thromboplastin Time 40.6 Seconds (22.0-36.0)
[2024-11-01] MEDS: HEPARIN SOD INJ 5000 UNIT/ML VIAL 2000 UNIT IV (16:29)
[2024-11-01 16:31] LABS: Troponin I 4.263 ng/mL (0.0-0.045)
[2024-11-01] MEDS: Heparin/D5w 25K 250 ML Ivpb 25,000 UNIT/250 ML BAG 9.646 UNIT IV (16:31)
--- NOTE | 2024-11-01 16:46 | ESPR_ITS ---
<Statement entered by Chantal Bryant MD - 11/03/24 16:29> I personally evaluated the patient examined the patient with the resident physician patient came to the hospital hyperaldosterone state hyperkalemia improved patient did not take insulin because insulin pump was malfunctioning and drank a lot of juice causing hyperosmolar state patient doing fairly well now With no chest pain but nonspecific T wave changes in enzyme elevations history of non-ST segment elevation myocardial infarction. I will plan on doing coronary angiogram cardiac catheterization on November 04, 2024 once mental status improves. 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 Ga Mcneal, PGY 1 agree with treatment plan recommendation as documented. Documentation for date of: 11/01/24 Subjective Subjective Interval history: Patient's mentation is much improved compared to yesterday. Echocardiogram showed stress cardiomyopathy. The patient is able to hold a conversation and answer questions. He denies any chest pain, palpitations, or shortness of breath. Troponins are trending downward. Cardiology now plans conary angiogram for the ptient on 11/04/2024. Stop heparin drip. Exam Vital Signs Temp Pulse Resp BP Pulse Ox O2 Del Method 97.7 F 90 17 136/68 H 98 Room Air 11/01/24 13:00 11/01/24 13:00 11/01/24 13:00 11/01/24 13:00 11/01/24 13:00 11/01/24 13:00 Narrative Exam General: Frail elderly man, disheveled. Awake and in no acute distress. Conversational. Neurologic: GCS 15. Oriented to place and time, no gross neurological deficit, and patient able to move all 4 extremities. HEENT: Normocephalic, atraumatic, mucous membranes moist. Pupils reactive to light. Heart: Regular rate and rhythm, normal S1 and S2, no murmurs. Lungs: Clear to auscultation bilaterally with no wheezing or crackles. Abdomen: Soft, nondistended, nontender, positive bowel sounds. No guarding or rebound tenderness. 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 No edema. 2+ radial and dorsalis pedis pulses bilaterally. Skin: Warm. Dry. No rash or ecchymoses. Objective Labs 11/01/24 05:28 11/01/24 08:39 Labs: Laboratory Results - last 24 hr 10/31/24 10/31/24 10/31/24 17:59 18:43 21:09 WBC RBC Hgb Hct MCV MCH MCHC RDW Std Deviation Plt Count Neut % (Auto) Lymph % (Auto) Parke % (Auto) Eos % (Auto) Baso % (Auto) Neut # (Auto) Lymph # (Auto) [place]ke # (Auto) Eos # (Auto) Baso # (Auto) Immature Gran # (Auto) Absolute Nucleated RBC Immature Gran % Nucleated RBC % APTT 41.8 H D VBG pH 7.41 VBG pCO2 43 D VBG pO2 36 D VBG O2 Sat ([place]) 72 L D VBG Base Excess 2 Sodium 147 H Potassium 3.6 Chloride 114 H Carbon Dioxide 26.0 Anion Gap 7 BUN 27 H Creatinine 1.6 H Estim Creat Clear Calc 32.9 L eGFR 44 L BUN/Creatinine Ratio 17 Glucose Not Performed. 71 L D Calculated Osmolality 295 Lactic Acid 3.1 H Calcium 9.1 Corrected Calcium 9.6 Phosphorus 2.7 Magnesium Total Bilirubin AST ALT Alkaline Phosphatase Troponin I 9.783 H* D Total Protein Albumin 3.4 Globulin Albumin/Globulin Ratio Vitamin B12 Folate 11/01/24 11/01/24 11/01/24 02:15 05:28 08:39 WBC 11.1 H RBC 4.21 L Hgb 11.3 L D Hct 35.6 L MCV 85 MCH 26.8 MCHC 31.7 RDW Std Deviation 46.6 H Plt Count 207 D Neut % (Auto) 75 Lymph % (Auto) 17 Parke % (Auto) 5 Eos % (Auto) 3 Baso % (Auto) 1 Neut # (Auto) 8.3 H Lymph # (Auto) 1.9 Parke # (Auto) 0.5 Eos # (Auto) 0.3 Baso # (Auto) 0.1 Immature Gran # (Auto) 0.02 H Absolute Nucleated RBC 0.00 Immature Gran % 0 Nucleated RBC % 0 APTT 51.3 H VBG pH VBG pCO2 VBG pO2 VBG O2 Sat ([place]) VBG Base Excess Sodium 146 H Potassium 3.4 Chloride 111 H Carbon Dioxide 26.2 Anion Gap 9 BUN 27 H Creatinine 1.4 H Estim Creat Clear Calc 40.9 L eGFR 52 L BUN/Creatinine Ratio 19 Glucose 108 H D 227 H D Calculated Osmolality 296 H Lactic Acid Calcium 8.5 Corrected Calcium 9.3 Phosphorus 2.9 Magnesium 1.8 Total Bilirubin 0.3 AST 32 ALT 10 Alkaline Phosphatase 42 L Troponin I 7.231 H* D 5.608 H* D Total Protein 5.0 L Albumin 3.0 L Globulin 2.0 L Albumin/Globulin Ratio 1.5 Vitamin B12 211 Folate 7.79 11/01/24 14:56 WBC RBC Hgb Hct MCV MCH MCHC RDW Std Deviation Plt Count Neut % (Auto) Lymph % (Auto) Parke % (Auto) Eos % (Auto) Baso % (Auto) Neut # (Auto) Lymph # (Auto) Parke # (Auto) Eos # (Auto) Baso # (Auto) Immature Gran # (Auto) Absolute Nucleated RBC Immature Gran % Nucleated RBC % APTT 40.6 H D VBG pH VBG pCO2 VBG pO2 VBG O2 Sat ([place]) VBG Base Excess Sodium Potassium Chloride Carbon Dioxide Anion Gap BUN Creatinine Estim Creat Clear Calc eGFR BUN/Creatinine Ratio Glucose Calculated Osmolality Lactic Acid Calcium Corrected Calcium Phosphorus Magnesium Total Bilirubin AST ALT Alkaline Phosphatase Troponin I 4.263 H* D Total Protein Albumin Globulin Albumin/Globulin Ratio Vitamin B12 Folate ABG Interpretation ABG results: 10/31/24 10/31/24 10/31/24 06:50 15:30 18:43 VBG pH 7.31 L 7.49 7.41 VBG pCO2 41 28 L D 43 D VBG pO2 53 176 H D 36 D VBG Base Excess -5 L -1 2 Quality Measures Quality Measures none Advance care planning discussed with:: patient and other Assessment & Plan Assessment Current Active Medications: Generic Name Dose Route Start Last Admin Trade Name Freq PRN Reason Stop Dose Admin Acetaminophen 650 mg 10/31/24 08:33 Acetaminophen 325 Mg Tablet PO 11/30/24 08:32 Q4HR PRN PAIN SCALE 1-3 (mild Acetaminophen 650 mg 10/31/24 17:41 Acetaminophen Supp 650 Mg Supp RI 11/30/24 17:40 Q4HR PRN PAIN 1-3 OR FEVER > 101 Aspirin 81 mg 11/01/24 09:00 11/01/24 08:00 Aspirin Ec 81 Mg Tabec PO 12/01/24 08:59 81 mg QDAY PIERCE Administration Atorvastatin Calcium 80 mg 11/01/24 21:00 Atorvastatin Calcium 20 Mg Tablet PO 12/01/24 20:59 HS PIERCE Dextrose 25 ml 10/31/24 10:28 Dextrose 50%-Water Inj 50 Ml Syringe IV 11/30/24 10:27 Q15MIN PRN BG 50-70 responsive npo pt Dextrose 50 ml 10/31/24 10:28 11/01/24 07:40 Dextrose 50%-Water Inj 50 Ml Syringe IV 11/30/24 10:27 50 ml Q15MIN PRN Administration BG <50 OR BG <70 & pt unresponsive Glucagon 1 mg 10/31/24 10:28 Glucagon Inj 1 Mg Vial IM Q15MIN PRN BG <70, and no IV access Heparin Sodium/Dextrose 25,000 unit in 250 mls @ 8.268 mls/hr 10/31/24 15:15 11/01/24 16:31 Heparin In D5w Ivpb IV 11/14/24 15:14 14 units/kg/hr .Q24H PIERCE 9.646 mls/hr Administration Protocol 12 UNITS/KG/HR Lactated Ringer's 1,000 mls @ 75 mls/hr 10/31/24 16:00 11/01/24 11:17 Lactated Ringers IV 11/30/24 15:59 75 mls/hr .[id number] PIERCE Administration Insulin Human Lispro 0 unit 10/31/24 22:38 11/01/24 11:37 Insulin Lispro (Admelog) 1 Unit/0.01 Ml Unit SC 11/30/24 22:37 4 unit Q6HR PIERCE Administration Protocol Magnesium Hydroxide 30 ml 10/31/24 08:33 Milk Of Magnesia Susp 30 Ml Udc PO 11/30/24 08:32 QDAY PRN CONSTIPATION Pantoprazole Sodium 40 mg 10/31/24 09:00 11/01/24 08:00 Pantoprazole 40 Mg Tablet PO 11/30/24 08:59 40 mg QDAY PIERCE Administration Ropinirole HCl 8 mg 11/01/24 21:00 Ropinirole Hcl 1 Mg Tablet PO 12/01/24 20:59 HS PIERCE Sodium Chloride 3 ml 10/31/24 08:38 10/31/24 08:50 Sodium Chloride Rt Ramya 0.9% 3 Ml Nebu INH 11/30/24 08:37 3 ml PRN PRN Administration SOLN Plan Patient is a 78-year-old male with a PMH of diabetes on insulin, hypertension, restless leg syndrome, colon cancer s/p resection, chemo and radiation currently in remission, who was brought to the hospital with a chief complaint of altered mental status. The patient was admitted for management of his hyperglycemic hyperosmolar state. Cardiology was consulted due to the patient's elevated troponins. #Elevated troponins #NSTEMI type II #Stress Cardiomyopathy * Troponins down trended from 14.4 to 4.2 on 11/01/2024 * The patient denies chest pain, palpitations, and shortness of breath upon questioning * Most recent EKG on 10/31/2024 was negative for any acute ST segment changes * Echo was postive for Normal-sized left ventricle with evidence of basal hyperkinesis and anteroapical apical inferoapical akinesis and apical dyskinesis suggestive and consistent with stress-induced cardiomyopathy (Takotsubo cardiomyopathy), Proximal left ventricular ejection fraction is 55 to 60% global LV function is well-preserved, RV normal in size and function, LA moderately dilated, Trace TR and MR Plan: * Cardiology team plans for cath on 11/04/2024 to rule out ischemic cardiomyopathy, pending the patient maintains his mental status * Stop heparin drip * Trend troponins * Maintain K>4.0, Mg>2.0 #Hyperosmotic hyperglycemic state 2/2 #Acute encephalopathy 2/2 HHS #Diabetes mellitus type 1 # Non-anion gap metabolic #Hyperkalemia #RAMBO on CKD #RAMBO likely prerenal in the setting of HHS #Depression #Restless leg syndrome #COPD #Colon cancer in remission The rest of the patient's hospital problems will be managed per the primary team. The patient was seen and discussed with my attending physician Dr. Bryant. Ga Mcneal DO PGY-1
--- NOTE | 2024-11-01 17:57 | PC.NURSE ---
Verified with Dr. Manny MURILLO heparin drip.
[2024-11-01] MEDS: ATORVASTATIN CALCIUM 20 MG TABLET 80 MG PO (20:48)
[2024-11-02] VITALS (14 sets, daily range): BP systolic 111–178; BP diastolic 56–103; PULSE 70–103; RESP 13–99; TEMP 36.6–37.2; O2SAT 96–99; BMI 26.6; BMI 14.0
[2024-11-02 06:05] LABS: Basophils # (Auto) 0.1 Thou/mm3 (0.0-0.2); Basophils % (Auto) 1 % (0-2.5); Eosinophils # (Auto) 0.6 Thou/mm3 (0.0-0.5); Eosinophils % (Auto) 7 % (0-10); Hematocrit 33.8 % (41.0-53.0); Hemoglobin 10.8 g/dL (13.5-16.0); Immature Granulocytes Auto 0.03 Thou/mm3 (0.00-0.00); Lymphocytes # (Auto) 1.6 Thou/mm3 (1.0-4.8); Lymphocytes % (Auto) 19 % (10-50); Mean Corpuscular HGB Conc 32.0 g/dl (31.0-37.0); Mean Corpuscular Hemoglobin 26.9 pg (25.0-35.0); Mean Corpuscular Volume 84 fL (80-100); Monocytes # (Auto) 0.5 Thou/mm3 (0.0-0.8); Monocytes % (Auto) 6 % (0-12); Neutrophils # (Auto) 5.7 Thou/mm3 (1.8-7.7); Neutrophils % (Auto) 67 % (37-80); Nucleated Red Blood Cell # 0.00 Thou/mm3 (0.00-0.00); Nucleated Red Blood Cell % 0 /100 WBC (0); Platelet Count 207 Thou/mm3 (140-440); RDW Standard Deviation 46.5 fL (35.1-43.9); Red Blood Count 4.02 Miln/mm3 (4.50-5.90); White Blood Count 8.6 Thou/mm3 (3.8-10.6)
[2024-11-02 06:26] LABS: INR 1.0 (0.9-1.3); Partial Thromboplastin Time 24.8 Seconds (22.0-36.0); Prothrombin Time 10.8 Seconds (9.0-12.2)
[2024-11-02 06:28] LABS: Alanine Aminotransferase 9 U/L (10-49); Albumin, Serum 3.0 gm/dL (3.4-4.8); Albumin/Globulin Ratio 1.6 (1.2-2.2); Alkaline Phosphatase 40 U/L (46-116); Anion Gap 7 (7-16); Aspartate Amino Transferase 19 U/L (0-34); BUN/Creatinine Ratio 21 Ratio (12-20); Bilirubin,Total 0.3 mg/dL (0.3-1.2); Blood Urea Nitrogen 25 mg/dL (9-23); Calcium 8.2 mg/dL (8.3-10.6); Calcium (Corrected) 9.0 mg/dL (8.5-10.1); Carbon Dioxide 26.6 mMol/L (20.0-31.0); Chloride 109 mMol/L (98-107); Creatinine (Component) 1.2 mg/dL (0.6-1.3); Estimated Creatinine Clearance 47.8 mL/min (>60); Globulin 1.9 gm/dL (2.3-3.5); Glucose 111 mg/dL (74-106); Magnesium 2.0 mg/dL (1.6-2.6); Osmolality,Calculated 290 (275-295); Potassium 4.1 mMol/L (3.4-5.1); Sodium 143 mMol/L (136-145); Total Protein 4.9 gm/dL (5.7-8.2); eGFR > 60 See Note
[2024-11-02] MEDS: ESCITALOPRAM OXALATE 10 MG TABLET 20 MG PO (09:04)
[2024-11-02] MEDS: ASPIRIN EC 81 MG TABEC PO (09:04)
[2024-11-02] MEDS: PANTOPRAZOLE 40 MG TABLET PO (09:04)
[2024-11-02] MEDS: HEPARIN SOD INJ 5000 UNIT/ML VIAL SC ×2 (09:05→22:08)
--- NOTE | 2024-11-02 10:53 | PD.RESPRO ---
Documentation for date of: 11/02/24 Subjective Subjective Interval history: Overnight patient mentation improve significantly. Resume Insulin home pump, brought by patient daughters. PATIENT HOME INSULIN PUMP IS ON, PLEASE DO NOT USE INSULIN SLIDING SCALE WITHOUT CALLING MD. Today patient was seen and examained at bedside.Pleasently conversant, looks clinically better. Alert and oriented x3. Denies chest pain, shortness of breath, bodyaches. Only endorses mild dysuria since leiva cath removal. Vitals are stable except for blood pressure of 178/103. Saturating well on room air. AM labs reviewed. Creatinine improved to 1.2, GFR > 60 (improved). Glucose was 111. MRS jewell screen positive. Started the pt on Mupirocin TID. Blood cultures still no growth after 48 hours in 2 bottles. Resume homes meds for depression Lexapro 20 mg po qday. Also lisinopril 10mg for BP control Cardiac cath planned for Monday. Exam Vital Signs Temp Pulse Resp BP Pulse Ox O2 Del Method 98.2 F 77 13 159/80 H 97 Room Air 11/02/24 08:00 11/02/24 08:58 11/02/24 08:58 11/02/24 08:00 11/02/24 08:00 11/02/24 08:00 Narrative Exam Physical Exam General: Pleasant and Conversational, fingernails and toenails with visible subungual dirt bilaterally Non-toxic appearing. HEENT: Normocephalic, atraumatic, mucous membranes dry. Heart: Regular rate and rhythm, normal S1 and S2, no murmurs. Lungs: Clear to auscultation with no wheezing or crackles. Abdomen: Soft, nondistended, nontender, positive bowel sounds. ?No guarding or rebound tenderness. Neurologic: Alert and oriented x3 , no gross neurological deficit, and patient able to move all 4 extremities. 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 Skin: No rash or ecchymoses. Objective Labs 11/02/24 05:21 11/02/24 05:21 Labs: Laboratory Results - last 24 hr 11/01/24 11/02/24 14:56 05:21 WBC 8.6 RBC 4.02 L Hgb 10.8 L Hct 33.8 L MCV 84 MCH 26.9 MCHC 32.0 RDW Std Deviation 46.5 H Plt Count 207 Neut % (Auto) 67 Lymph % (Auto) 19 [place] % (Auto) 6 Eos % (Auto) 7 Baso % (Auto) 1 Neut # (Auto) 5.7 Lymph # (Auto) 1.6 [place] # (Auto) 0.5 Eos # (Auto) 0.6 H Baso # (Auto) 0.1 Immature Gran # (Auto) 0.03 H Absolute Nucleated RBC 0.00 Immature Gran % 0 Nucleated RBC % 0 PT 10.8 INR 1.0 APTT 40.6 H D 24.8 D Sodium 143 Potassium 4.1 D Chloride 109 H Carbon Dioxide 26.6 Anion Gap 7 BUN 25 H Creatinine 1.2 Estim Creat Clear Calc 47.8 L eGFR > 60 BUN/Creatinine Ratio 21 H Glucose 111 H D Calculated Osmolality 290 Calcium 8.2 L Corrected Calcium 9.0 Magnesium 2.0 Total Bilirubin 0.3 AST 19 ALT 9 L Alkaline Phosphatase 40 L Troponin I 4.263 H* D Total Protein 4.9 L Albumin 3.0 L Globulin 1.9 L Albumin/Globulin Ratio 1.6 ABG Interpretation ABG results: 10/31/24 10/31/24 10/31/24 06:50 15:30 18:43 VBG pH 7.31 L 7.49 7.41 VBG pCO2 41 28 L D 43 D VBG pO2 53 176 H D 36 D VBG Base Excess -5 L -1 2 Quality Measures Quality Measures none Advance care planning discussed with:: patient Assessment & Plan Assessment Current Active Medications: Generic Name Dose Route Start Last Admin Trade Name Freq PRN Reason Stop Dose Admin Acetaminophen 650 mg 10/31/24 08:33 Acetaminophen 325 Mg Tablet PO 11/30/24 08:32 Q4HR PRN PAIN SCALE 1-3 (mild Acetaminophen 650 mg 10/31/24 17:41 Acetaminophen Supp 650 Mg Supp VA 11/30/24 17:40 Q4HR PRN PAIN 1-3 OR FEVER > 101 Aspirin 81 mg 11/01/24 09:00 11/02/24 09:04 Aspirin Ec 81 Mg Tabec PO 12/01/24 08:59 81 mg QDAY PIERCE Administration Atorvastatin Calcium 80 mg 11/01/24 21:00 11/01/24 20:48 Atorvastatin Calcium 20 Mg Tablet PO 12/01/24 20:59 80 mg HS PIERCE Administration Dextrose 25 ml 10/31/24 10:28 Dextrose 50%-Water Inj 50 Ml Syringe IV 11/30/24 10:27 Q15MIN PRN BG 50-70 responsive npo pt Dextrose 50 ml 10/31/24 10:28 11/01/24 07:40 Dextrose 50%-Water Inj 50 Ml Syringe IV 11/30/24 10:27 50 ml Q15MIN PRN Administration BG <50 OR BG <70 & pt unresponsive Escitalopram Oxalate 20 mg 11/02/24 09:00 11/02/24 09:04 Escitalopram Oxalate 10 Mg Tablet PO 12/02/24 08:59 20 mg QDAY PIERCE Administration Glucagon 1 mg 10/31/24 10:28 Glucagon Inj 1 Mg Vial IM Q15MIN PRN BG <70, and no IV access Heparin Sodium (Porcine) 5,000 unit 11/02/24 08:00 11/02/24 09:05 Heparin Sod Inj 5000 Unit/Ml Vial SC 11/16/24 07:59 5,000 unit Q12HR PIERCE Administration Lactated Ringer's 1,000 mls @ 75 mls/hr 10/31/24 16:00 11/01/24 23:13 Lactated Ringers IV 11/30/24 15:59 75 mls/hr .[id number] PIERCE Administration Insulin Human Lispro 0 unit 11/02/24 09:49 Insulin Lispro (Admelog) 1 Unit/0.01 Ml Unit SC 11/30/24 22:37 Q6HR PIERCE Protocol Magnesium Hydroxide 30 ml 10/31/24 08:33 Milk Of Magnesia Susp 30 Ml Udc PO 11/30/24 08:32 QDAY PRN CONSTIPATION Mupirocin 0 gm 11/02/24 10:00 Mupirocin Oint 2% 15 Gm Tube TOP 11/09/24 09:59 TID PIERCE Oxycodone/Acetaminophen 1 tab 11/02/24 07:54 Oxycodone/Apap 5/325 Tablet PO 11/07/24 07:48 Q8H PRN PAIN SCALE 4-10(Mod-Sev Pantoprazole Sodium 40 mg 10/31/24 09:00 11/02/24 09:04 Pantoprazole 40 Mg Tablet PO 11/30/24 08:59 40 mg QDAY PIERCE Administration Ropinirole HCl 8 mg 11/01/24 21:00 11/01/24 20:49 Ropinirole Hcl 1 Mg Tablet PO 12/01/24 20:59 8 mg HS PIERCE Administration Sodium Chloride 3 ml 10/31/24 08:38 10/31/24 08:50 Sodium Chloride Rt Ramya 0.9% 3 Ml Nebu INH 11/30/24 08:37 3 ml PRN PRN Administration SOLN Plan Mr. John is a 78-year-old male with past medical history of poorly controlled type 1 diabetes, COPD, depression, colon cancer in remission (s/p chemo and resection), restless leg syndrome brought into the ED on 10/31/2024 for altered mental status and was found to have a glucose of 955, A1c of 11.7 and lactic acid of 5.4. Admitted for management of hyperosmotic hyperglycemic state and altered mental status. #Hyperosmotic hyperglycemic state 2/2 (resolving) # Acute encephalopathy 2/2 HHS (resolved) #Diabetes mellitus type 1 # Non-anion gap metabolic #Hyperkalemia (resolved) Patient has a history of type 1 diabetes which was managed on insulin pump. Noncompliant since pump broke. Findings consistent with hyperosmolar hyperglycemic state: Pt dehydrated, blood glucose 955, A1c 11.7. Non anion gap acidosis on admision, VBG ph7.31, bicarb 19.UA trace of glucose (4+), ketones (1+), beta-hydroxybutyrate 1.8. Also mental status is altered. He is in a state of of nonacidotic hyperglycemia, that is improving. Lactic acid from 5.4-5.1. Na 146, K 6.2 Received calcium 1gm gluconate, albuterol, ceftriaxone 1 g swallow test if positive, no need to change diet to n.p.o. MRSA nares screen (+) on 11/02/24 Plan - Glucose checks Q6h - Monitor mentation, improving - Insulin sliding scale discontinued - Mupirocin started for positive MRSA screen - Magnesium, phosphate ordered - Seizure and aspiration #Elevated troponins #NSTEMI type II #Stress Cardiomyopathy (Takotsubo cardiomyopathy) Uptrending troponin 2.855>7.826> 14.435. Does not report active chest pain at the moment. Most recent EKG on 10/31/2024 was negative for any acute ST segment changes. BNP elevated 194. 10/31/24-Echo was positive for Normal-sized left ventricle with evidence of basal hyperkinesis and anteroapical apical inferoapical akinesis and apical dyskinesis suggestive and consistent with stress-induced cardiomyopathy (Takotsubo cardiomyopathy), Proximal left ventricular ejection fraction is 55 to 60% global LV function is well-preserved, RV normal in size and function, LA moderately dilated, Trace TR and MR Meets SIRS criteria with 3/4: tachypnea with RR 22, Fever 101F, tachycadiac HR 109 endorgan damage. urine tox is positive for Marijuana only Plan- - Continue aspirin 81 mg p.o. daily - Cardiology consulted, plans for coronary angiogram on 11/04/2024 to rule out ischemic cardiomyopathy - Will Trend troponins until downtrended - Stopped heparin drip -Maintain K >4.0 and Mg >2.0 #RAMBO on CKD (improved) #RAMBO likely prerenal in the setting of HHS #Hypernatremia (improved) On admission Cr is 1.6 and GFR 44, baseline Cr 1.3, likely pre-renal in the setting of HHS. Plan - Continue hydration - Monitor Na and switch to .45 NS if needed, to avoid worsening hypernatremia - Avoid nephrotoxic agents - Renally dose medications - Nephrology onboard- c-peptide pending # Depression Patient has Hx depression which is managed with home med escitalopram Plan -resume home meds escitalopram 20 mg PO Qday #Restless leg syndrome Per chart review history of restless leg syndrome on home med ropinirole 8mg PO HS Plan - Continue with home meds ropinirole 8mg po #COPD Patient has a history of COPD on home O2 pt has history of COPD per daughter. Saturating well on room air Plan -Monitor O2 sat #Primary Hypertension Blood pressure increased to 178/103 mmhg Plan - Resumed home meds lisinopril 10 mg PO QD #Colon cancer in remission (s/p chemo and resection) #Acute anemia 2/2 Patient is aware of his diagnosis of colon cancer on remission but declines further evaluation or management at this time. Daughter, who is present at the bedside, is aware of the patient decision, family does not wish to pursue additional workup or treatment. The anemia might be due to the colon cancer. Hg 10.2 and Hct 33.8 Plan - Continue to monitor H/H Hospital management: Lines: peripheral IV Diet: Milk of Mg supp Bowel: Milk of Mg supp GI prophylaxis: pantoprazole DVT prophylaxis: Heparin SC Disposition: tele for management of HHS and AMS CODE STATUS: Full code Patient seen and assessed under supervision of attending physician Dr. Fernando Vasquez MD PGY-1, Internal Medicine Attending Provider Attestation/Addendum I attest that I was physically present for the evaluation, physical examination, lab and imaging review of the patient with the residents. I discussed the case with the residents and agree with the findings and plans of care as documented above. Tony Foster MD
--- NOTE | 2024-11-02 10:58 | PC.PT ---
PT eval performed. pt could return home w/ CG assist and may benefit from 4WW.
--- NOTE | 2024-11-02 11:06 | ESPR_ITS ---
Documentation for date of: 11/02/24 Subjective Subjective Interval history: history provided by daughter Lambert, pt is intermittently somnolent and oriented x1. Mr. Maynard is a 78-year-old gentleman with a past medical history significant for poorly controlled type 2 diabetes mellitus not on insulin- a1c 11.7, COPD, d epression, query dementia, colon cancer in remission (s/p chemo, and resection), restless leg syndrome, who was found naked and down by his daughter Lambert, with AMS and brought in to the emergency department. He lives alone. he was found to have a blood glucose of 955 mg/dL, lactic acid of 5.4 mmol/L, and hemoglobin A1c of 11.7%. No prior history of dialysis or advanced chronic kidney disease is documented. The patient is unable to provide reliable history due to his mental status, history provided by daughter, Lambert. ED course Dx - WBC wnl, VBG with pH 7.31, Na 146, K 6.2, Cl 111, CO2 19, BUN 36, Cr 2.0, Glucose 955, A1c 11.7, Lactic acid 5.4, Troponin 7.8, BNP 194, Beta hydroxybutyrate 1.8, Procalcitonin wnl, TSH wnl, Utox + marijuana UA4+ glucose, 1+ ketones - EKG@0400 initially with sinus tachycardia to 110s, and nonspecific ST changes, Repeat EKG with mild T peaked T waves 2 in V3? (not uploaded in chart) - CT head- Negative for acute hemorrhage, mass effect or midline shift - CT neck- no acute fractures - CTAP- unremarkable, Right internal jugular Port-A-Cath tip satisfactory position, Large retrocardiac gastric hernia Tx - 10 units insulin - Insulin drip - 2L NS - 1L LR - Ca gluconate 1 gm - Albuterol 15 - Ceftriaxone 1 gm - Lasix 40 mg IV 1x - Diazapam 10 mg PMH HTN, T1 vs T2 DM on insulin pump, COPD, restless leg syndrome, depression, colon cancer in remission, dementia? R ear deaf, malnutrition? 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 Social Hx: lives with independently (daughter lambert checks in on him occasionally), query smoking hx?, marijuana use, Etoh use (quit > 40 years ago) Medications: pending reconcilation, daughter will bring in medications ROS, unable to obtain given, pt mental status. 10/31/2024: Pt admitted to ICU, Nephrology consulted, Patient seen and examined in the ICU, Daughter Lambert at bedside, pt is intermittently somnolent, arousable to voice and touch, pt oriented to self. On exam pt appears frail with temporal wasting and with poor hygeine. Pt appears hypovolemic, lungs clear to auscultation, no peripheral edema, Leiva in place draining clear urine. pt is on insulin drip and IVF, blood sugars are downtrending, 141 from 600s. 11/01/2024: pt downgraded from the ICU yesterday, pt had 2 episodes of asymptomatic hypoglycemia to 30s/40s. 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 Pt reports that he doesnt know whether he has type 1 or type 2 dm, (pending c peptide) he is asking about the sensor that he used to have on his L arm. Finger BS, 248 after IV dextrose given. Pt appears hypovolemic on exam, recommended give 1/2 NS 1L bolus. 11/02/2024: patient seen and examined at bedside. pt is sleeping. Pt is using insulin pump, no ssi unless MD is consulted. No acute complaints, cpeptide is pending, Blood sugars as documented have been wnl. Cr 1.2 from 1.4, BUN 25. Blood Cx ngtd,d/c leiva Exam Vital Signs Temp Pulse Resp BP Pulse Ox O2 Del Method 98.2 F 77 13 159/80 H 97 Room Air 11/02/24 08:00 11/02/24 08:58 11/02/24 08:58 11/02/24 08:00 11/02/24 08:00 11/02/24 08:00 Narrative Exam General: Pleasant and Conversational, fingernails and toenails with visible subungual dirt bilaterally Non-toxic appearing. HEENT: Normocephalic, atraumatic, mucous membranes dry. Heart: Regular rate and rhythm, normal S1 and S2, no murmurs. Lungs: Clear to auscultation with no wheezing or crackles. Abdomen: Soft, nondistended, nontender, positive bowel sounds. ?No guarding or rebound tenderness. Neurologic: Alert and oriented x3 , no gross neurological deficit, and patient able to move all 4 extremities. 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 Skin: No rash or ecchymoses. Objective Labs 11/04/24 04:58 11/04/24 04:58 Labs: Laboratory Results - last 24 hr 11/01/24 11/02/24 14:56 05:21 WBC 8.6 RBC 4.02 L Hgb 10.8 L Hct 33.8 L MCV 84 MCH 26.9 MCHC 32.0 RDW Std Deviation 46.5 H Plt Count 207 Neut % (Auto) 67 Lymph % (Auto) 19 [place] % (Auto) 6 Eos % (Auto) 7 Baso % (Auto) 1 Neut # (Auto) 5.7 Lymph # (Auto) 1.6 [place] # (Auto) 0.5 Eos # (Auto) 0.6 H Baso # (Auto) 0.1 Immature Gran # (Auto) 0.03 H Absolute Nucleated RBC 0.00 Immature Gran % 0 Nucleated RBC % 0 PT 10.8 INR 1.0 APTT 40.6 H D 24.8 D Sodium 143 Potassium 4.1 D Chloride 109 H Carbon Dioxide 26.6 Anion Gap 7 BUN 25 H Creatinine 1.2 Estim Creat Clear Calc 47.8 L eGFR > 60 BUN/Creatinine Ratio 21 H Glucose 111 H D Calculated Osmolality 290 Calcium 8.2 L Corrected Calcium 9.0 Magnesium 2.0 Total Bilirubin 0.3 AST 19 ALT 9 L Alkaline Phosphatase 40 L Troponin I 4.263 H* D Total Protein 4.9 L Albumin 3.0 L Globulin 1.9 L Albumin/Globulin Ratio 1.6 ABG Interpretation ABG results: 10/31/24 10/31/24 10/31/24 06:50 15:30 18:43 VBG pH 7.31 L 7.49 7.41 VBG pCO2 41 28 L D 43 D VBG pO2 53 176 H D 36 D VBG Base Excess -5 L -1 2 Quality Measures Quality Measures none Advance care planning discussed with:: patient Assessment & Plan Assessment Current Active Medications: Generic Name Dose Route Start Last Admin Trade Name Freq PRN Reason Stop Dose Admin Acetaminophen 650 mg 10/31/24 08:33 Acetaminophen 325 Mg Tablet PO 11/30/24 08:32 Q4HR PRN PAIN SCALE 1-3 (mild Acetaminophen 650 mg 10/31/24 17:41 Acetaminophen Supp 650 Mg Supp NH 11/30/24 17:40 Q4HR PRN PAIN 1-3 OR FEVER > 101 Aspirin 81 mg 11/01/24 09:00 11/02/24 09:04 Aspirin Ec 81 Mg Tabec PO 12/01/24 08:59 81 mg QDAY PIERCE Administration Atorvastatin Calcium 80 mg 11/01/24 21:00 11/01/24 20:48 Atorvastatin Calcium 20 Mg Tablet PO 12/01/24 20:59 80 mg HS PIERCE Administration Dextrose 25 ml 10/31/24 10:28 Dextrose 50%-Water Inj 50 Ml Syringe IV 11/30/24 10:27 Q15MIN PRN BG 50-70 responsive npo pt Dextrose 50 ml 10/31/24 10:28 11/01/24 07:40 Dextrose 50%-Water Inj 50 Ml Syringe IV 11/30/24 10:27 50 ml Q15MIN PRN Administration BG <50 OR BG <70 & pt unresponsive Escitalopram Oxalate 20 mg 11/02/24 09:00 11/02/24 09:04 Escitalopram Oxalate 10 Mg Tablet PO 12/02/24 08:59 20 mg QDAY PIERCE Administration Glucagon 1 mg 10/31/24 10:28 Glucagon Inj 1 Mg Vial IM Q15MIN PRN BG <70, and no IV access Heparin Sodium (Porcine) 5,000 unit 11/02/24 08:00 11/02/24 09:05 Heparin Sod Inj 5000 Unit/Ml Vial SC 11/16/24 07:59 5,000 unit Q12HR PIERCE Administration Lactated Ringer's 1,000 mls @ 75 mls/hr 10/31/24 16:00 11/01/24 23:13 Lactated Ringers IV 11/30/24 15:59 75 mls/hr .[id number] PIERCE Administration Insulin Human Lispro 0 unit 11/02/24 09:49 Insulin Lispro (Admelog) 1 Unit/0.01 Ml Unit SC 11/30/24 22:37 Q6HR PIERCE Protocol Magnesium Hydroxide 30 ml 10/31/24 08:33 Milk Of Magnesia Susp 30 Ml Udc PO 11/30/24 08:32 QDAY PRN CONSTIPATION Mupirocin 0 gm 11/02/24 10:00 Mupirocin Oint 2% 15 Gm Tube TOP 11/09/24 09:59 TID PIERCE Oxycodone/Acetaminophen 1 tab 11/02/24 07:54 Oxycodone/Apap 5/325 Tablet PO 11/07/24 07:48 Q8H PRN PAIN SCALE 4-10(Mod-Sev Pantoprazole Sodium 40 mg 10/31/24 09:00 11/02/24 09:04 Pantoprazole 40 Mg Tablet PO 11/30/24 08:59 40 mg QDAY PIERCE Administration Ropinirole HCl 8 mg 11/01/24 21:00 11/01/24 20:49 Ropinirole Hcl 1 Mg Tablet PO 12/01/24 20:59 8 mg HS PIERCE Administration Sodium Chloride 3 ml 10/31/24 08:38 10/31/24 08:50 Sodium Chloride Rt Ramya 0.9% 3 Ml Nebu INH 11/30/24 08:37 3 ml PRN PRN Administration SOLN Plan Mr Maynard is a 78 yo gentlmeman with a hx of HTN and Type 1vs type 2 DM with insulin pump (a1c 11.7), COPD (prescribed O2, but not using) who was found down by his daughter lambert and brought in, found to have severe hyperglycemia consistent with HHS, EKG with nonspecific ST changes, troponin peaked, NSTEMI type II Cards consulted, and RAMBO likely prerenal 2/2 hypovolemia admitted to the ICU then downgraded to floors, RAMBO now resolved. blood sugars are well controlled with insulin pump. #RAMBO- likely prerenal hypovolemia in setting of #HHS- resolved 2.0 now 1.7 after IVF egfr 41 in setting of HHS, pt likely had profound intravascular volume depletion 2/2 severe osmotic diuresis, on 11/01 pt appears very hypovolemic on exam. dry mucus membranes, UOP is 1200, on 11/01 pt appears more euvolemic on exam. Cr 1.2 UOP 1125 Plan - encourage PO intake - avoid nephrotoxic agents - renally dose medications #Nongap metabolic acidosis- resolving #hypernatremia- resolved #hyperkalemia- resolved #Hyperchloremia Lactic Acid 5.1 from 5.4 down to Bicarb 20, hyperchloremia 111 On 11/01 Cr 1.4 from 1.7, BUN 27 gfr 52, appears hypovoelmic on exam On 11/02 Cr 1.2 from 1.4, BUN 25, appears more euvolemic on exam #AMS 2/2- resolved #Severe hyperglycemia consistent with HHS- resolved #glucosuria #T2DM vs T1DM on insulin pump #asymptomatic episodes of hypogylcemia to 30s A1c : 11.7, Serum glucose 955 now 570, Finger Blood Sugar 600s, now 141 Corrected Na: 167 (Serum Na 146, Serum glucose 955: Measured sodium + 0.024 * (Serum glucose - 100)) Serum osm 320, VBG ph 3.1, Bicarb 20, UA with 4+ glucose, 1+ ketones, Beta hydroxy buterate 1.8 AMS likely 2/2 HHS, suspect metabolic derrangements contributing to pts AMS ammonia levels < 10, TSH wnl, low level of suspicion for infxn etiologies given pt is afebrile, wbc wnl, procalcitoin wnl , low level of suspician for stuctural etiologies given CT head negative, query toxins although lower on ddx. given pt reports hx of having taken metformin in when he was initially diagnosed, query converson of T2DM to T1 vs Latent auto immune diabetes in adults. 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 BG have been well controlled on insulin pump - pending c peptide - management per primary team #Other problems #NSTEMI II ? #palpatations query arrhythmias pt does not follow with cco -trop elevation 7.826, continue to trend -BNP elevated 194 -cards consulted, on acs heparin drip #HLD #HTN #COPD on home O2 #restless leg syndrome #hx colon cancer s/p chemo and surgery, remission, does not follow up with oncology #malnutrition - management per primary team Plan discussed with nephrology attending Dr. Hortencia Pugh MD Internal Medicine PGY-1 Attending Provider Attestation/Addendum Patient seen and examined with resident physician Dr. Pugh. Note reviewed, agree with findings and recommendations. Spoke to daughter Harriet Patient admitted with hyperosmolar hyperglycemic coma. Blood sugar 959. Agree with IV insulin, IV fluids 11/03/2024 Hyperkalemia better with fluids. RAMBO from prerenal azotemia. Markedly improved. Patient has insulin pump ( fluctuating BS ) and Continuous glucose monitoring. Patient might benefit from going to rehab. K 4.4, cr 1.2, BS 111 spoke to [facility]-- will sign off. Thank you for the consult.
--- NOTE | 2024-11-02 11:19 | PC.PT ---
PT milli performed w/ pt walking in bunch w/ FWW. REcommend home w/ intermittent CG assist and possibly FWW or 4WW if balance or endurance cont to be a concern
[2024-11-02] MEDS: MUPIROCIN OINT 2% 15 GM TUBE TOP ×3 (11:30→22:08)
[2024-11-02] MEDS: INSULIN LISPRO (AdmeLOG) 1 UNIT/0.01 ML UNIT SC (11:39)
[2024-11-02] MEDS: RINGERS LACTATED 1000 ML 1,000 ML 75 ML IV (13:27)
--- NOTE | 2024-11-02 15:20 | PC.SS ---
1520-Per afternoon rounding meeting, Pt will need an anemogram and will possible d/c next week.
--- NOTE | 2024-11-02 17:53 | ESPR_ITS ---
RE: XIAO LANDIN : 1945 DATE OF SERVICE: 11/02/2024 SUBJECTIVE: The patient is a 78-year-old male who was admitted in the hospital initially with multiple medical problems including hyperosmolar hyperglycemic state, high fever_, metabolic acidosis, and hyperkalemia, treated. Now, he is feeling better. His troponin level went up to 14 down to 4. Continues to feel well. He has had restless legs. The patient feels well. No shortness of breath or chest pain. EKG showed nonspecific T wave changes. Cardiac enzymes are significantly elevated, _ NSTEMI versus Takotsubo cardiomyopathy. Clinically, he is otherwise doing well. LABORATORY DATA: Hemoglobin 10, hematocrit 33. His BUN and creatinine is back . Potassium is also corrected. Sugar is . IMPRESSION: 1. hyperosmolar hyperglycemic state. 2. Acute kidney injury, improved. 3. Hyperkalemia, improved. 4. Elevated troponin, possibly non-ST elevation myocardial infarction (NSTEMI) versus Takotsubo cardiomyopathy. 5. Chronic obstructive lung disease. 6. History of colon cancer, chemotherapy and surgery intervention. RECOMMENDATIONS: I recommend the patient a coronary angiogram to assess if the patient has significant coronary artery disease (CAD) or the patient has stress-induced cardiomyopathy. I will plan on doing that on 11/04/2024 in the morning. DT: 16:11:54 TT: 17:42:00 Ref: [id number] - TID: [id number] MTDD
--- NOTE | 2024-11-02 18:03 | PC.NURSE ---
patient took insulin pump ouit per dr. miranda while patient is hospital, dr. miranda said staff will be the one monitoring, glucose and give insulin per protocol while patient in here at hospital.
--- NOTE | 2024-11-02 19:43 | EKG_ITS ---
[facility] Test Date: 2024-11-02 Pat Name: XIAO LANDIN [facility] Gender[facility] Bundle Cutter: ECOBN1 : 1945 Requested By: German Franz Order Number: [id number] Reading MD: German Franz Measurements Intervals [place] Rate: 95 P: 67 NM: 142 QRS: -16 QRSD: 93 T: 184 QT: 407 QTc: 513 Interpretive Statements SINUS RHYTHM ST DEVIATION AND MODERATE T-WAVE ABNORMALITY, CONSIDER ANTEROLATERAL ISCHEMIA ST DEVIATION AND MODERATE T-WAVE ABNORMALITY, CONSIDER INFERIOR ISCHEMIA Compared to ECG 10/31/2024 14:46:48 No significant changes /store/S0/[id number].pdf
--- NOTE | 2024-11-02 19:56 | PC.NURSE ---
FABRICATION MIG WELDER called at 19:35 for c/o of chest discomfort that started at 1900, patient denies chest pain, nausea and vomiting. VS: 165/92, HR 100, RR 22, and O2 Saturations were 99% of RA. Patient remained in no visible signs of distress, Team ordered EKG which showed SR with T-Wave abnormality and STAT Troponin. FABRICATION MIG WELDER ended at 19:49 with VS: 167/91, HR 96, RR 18 and 02 Saturations were 98% of RA. Care continued.
--- NOTE | 2024-11-02 20:06 | PD.RESEVENT ---
Documentation for date of: 11/02/24 Event Note Event Note: Rapid response was called at 19:45 for chest discomfort. On evaluation, the patient reported that his chest felt weird but denied any chest pain, instead describing the sensation as his heart beating weird . He was alert, oriented, and hemodynamically stable on arrival. An EKG was performed and was unchanged from prior, showing normal sinus rhythm. Troponin was ordered and remains pending. The patient was placed on continuous cardiac monitoring. At this time he remains stable, the plan is to continue monitoring and follow-up troponin results, with reassessment of symptoms recur or worsens. ----- Plan discussed with attending physician Dr. Aashish Franz MD PGY-1 Internal Medicine
[2024-11-02 20:40] LABS: Troponin I 1.702 ng/mL (0.0-0.045)
[2024-11-02] MEDS: ATORVASTATIN CALCIUM 20 MG TABLET 80 MG PO (22:08)
[2024-11-03] VITALS (13 sets, daily range): BP systolic 121–165; BP diastolic 72–92; PULSE 73–92; RESP 13–19; TEMP 36.9–37.4; O2SAT 97–99; BMI 26.6
[2024-11-03] MEDS: INSULIN LISPRO (AdmeLOG) 1 UNIT/0.01 ML UNIT 4 UNIT SC (05:36)
[2024-11-03] MEDS: RINGERS LACTATED 1000 ML 1,000 ML 75 ML IV (05:38)
[2024-11-03] MEDS: MUPIROCIN OINT 2% 15 GM TUBE TOP ×3 (05:39→21:58)
[2024-11-03 06:14] LABS: Basophils # (Auto) 0.0 Thou/mm3 (0.0-0.2); Basophils % (Auto) 1 % (0-2.5); Eosinophils # (Auto) 0.5 Thou/mm3 (0.0-0.5); Eosinophils % (Auto) 8 % (0-10); Hematocrit 32.0 % (41.0-53.0); Hemoglobin 10.3 g/dL (13.5-16.0); Immature Granulocytes Auto 0.01 Thou/mm3 (0.00-0.00); Lymphocytes # (Auto) 1.1 Thou/mm3 (1.0-4.8); Lymphocytes % (Auto) 18 % (10-50); Mean Corpuscular HGB Conc 32.2 g/dl (31.0-37.0); Mean Corpuscular Hemoglobin 27.0 pg (25.0-35.0); Mean Corpuscular Volume 84 fL (80-100); Monocytes # (Auto) 0.4 Thou/mm3 (0.0-0.8); Monocytes % (Auto) 7 % (0-12); Neutrophils # (Auto) 3.8 Thou/mm3 (1.8-7.7); Neutrophils % (Auto) 66 % (37-80); Nucleated Red Blood Cell # 0.00 Thou/mm3 (0.00-0.00); Nucleated Red Blood Cell % 0 /100 WBC (0); Platelet Count 210 Thou/mm3 (140-440); RDW Standard Deviation 45.7 fL (35.1-43.9); Red Blood Count 3.81 Miln/mm3 (4.50-5.90); White Blood Count 5.7 Thou/mm3 (3.8-10.6)
[2024-11-03 07:17] LABS: Alanine Aminotransferase 7 U/L (10-49); Albumin, Serum 3.0 gm/dL (3.4-4.8); Albumin/Globulin Ratio 1.8 (1.2-2.2); Alkaline Phosphatase 40 U/L (46-116); Anion Gap 9 (7-16); Aspartate Amino Transferase 13 U/L (0-34); BUN/Creatinine Ratio 19 Ratio (12-20); Bilirubin,Total 0.5 mg/dL (0.3-1.2); Blood Urea Nitrogen 19 mg/dL (9-23); Calcium 8.4 mg/dL (8.3-10.6); Calcium (Corrected) 9.2 mg/dL (8.5-10.1); Carbon Dioxide 23.9 mMol/L (20.0-31.0); Chloride 106 mMol/L (98-107); Creatinine (Component) 1.0 mg/dL (0.6-1.3); Estimated Creatinine Clearance 57.3 mL/min (>60); Globulin 1.7 gm/dL (2.3-3.5); Glucose 270 mg/dL (74-106); Osmolality,Calculated 289 (275-295); Potassium 4.2 mMol/L (3.4-5.1); Sodium 139 mMol/L (136-145); Total Protein 4.7 gm/dL (5.7-8.2); eGFR > 60 See Note
--- NOTE | 2024-11-03 08:08 | PC.NURSE ---
Addendum entered by Radha Vasquez RN 11/03/24 10:14: 0815: Had patient connect his insulin pump, current rate it 2.74 u/hr. Original Note: Called Dr. Pastor for questions on insulin order. stated for patient to restart his insulin pump.
[2024-11-03] MEDS: HEPARIN SOD INJ 5000 UNIT/ML VIAL SC ×2 (08:12→21:58)
[2024-11-03] MEDS: ESCITALOPRAM OXALATE 10 MG TABLET 20 MG PO (08:13)
[2024-11-03] MEDS: PANTOPRAZOLE 40 MG TABLET PO (08:15)
[2024-11-03] MEDS: ASPIRIN EC 81 MG TABEC PO (08:15)
--- NOTE | 2024-11-03 09:19 | PD.NEPHPROG ---
Documentation for date of: 11/03/24 Subjective Subjective Interval history: Interval history: history provided by daughter Debbie, pt is intermittently somnolent and oriented x1. Mr. Maynard is a 78-year-old gentleman with a past medical history significant for poorly controlled type 2 diabetes mellitus not on insulin- a1c 11.7, COPD, depression, query dementia, colon cancer in remission (s/p chemo, and resection), restless leg syndrome, who was found naked and down by his daughter Debbie, with AMS and brought in to the emergency department. He lives alone. he was found to have a blood glucose of 955 mg/dL, lactic acid of 5.4 mmol/L, and hemoglobin A1c of 11.7%. No prior history of dialysis or advanced chronic kidney disease is documented. The patient is unable to provide reliable history due to his mental status, history provided by daughter, Debbie. ED course Dx - WBC wnl, VBG with pH 7.31, Na 146, K 6.2, Cl 111, CO2 19, BUN 36, Cr 2.0, Glucose 955, A1c 11.7, Lactic acid 5.4, Troponin 7.8, BNP 194, Beta hydroxybutyrate 1.8, Procalcitonin wnl, TSH wnl, Utox + marijuana UA4+ glucose, 1+ ketones - EKG@0400 initially with sinus tachycardia to 110s, and nonspecific ST changes, Repeat EKG with mild T peaked T waves 2 in V3? (not uploaded in chart) - CT head- Negative for acute hemorrhage, mass effect or midline shift - CT neck- no acute fractures - CTAP- unremarkable, Right internal jugular Port-A-Cath tip satisfactory position, Large retrocardiac gastric hernia Tx - 10 units insulin - Insulin drip - 2L NS - 1L LR - Ca gluconate 1 gm - Albuterol 15 - Ceftriaxone 1 gm - Lasix 40 mg IV 1x - Diazapam 10 mg PMH HTN, T1 vs T2 DM on insulin pump, COPD, restless leg syndrome, depression, colon cancer in remission, dementia? R ear deaf, malnutrition? 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 Social Hx: lives with independently (daughter debbie checks in on him occasionally), query smoking hx?, marijuana use, Etoh use (quit > 40 years ago) Medications: pending reconcilation, daughter will bring in medications ROS, unable to obtain given, pt mental status. 10/31/2024: Pt admitted to ICU, Nephrology consulted, Patient seen and examined in the ICU, Daughter Debbie at bedside, pt is intermittently somnolent, arousable to voice and touch, pt oriented to self. On exam pt appears frail with temporal wasting and with poor hygeine. Pt appears hypovolemic, lungs clear to auscultation, no peripheral edema, Leiva in place draining clear urine. pt is on insulin drip and IVF, blood sugars are downtrending, 141 from 600s. 11/01/2024: pt downgraded from the ICU yesterday, pt had 2 episodes of asymptomatic hypoglycemia to 30s/40s. 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 Pt reports that he doesnt know whether he has type 1 or type 2 dm, (pending c peptide) he is asking about the sensor that he used to have on his L arm. Finger BS, 248 after IV dextrose given. Pt appears hypovolemic on exam, recommended give 1/2 NS 1L bolus. 11/04/2024: patient seen and examined at bedside. pt is alert and awake. Pt is using insulin pump, no ssi unless MD is consulted. No acute complaints, cpeptide is pending, Blood sugars as documented have been wnl. Creatinine almost normal. Blood Cx ngtd,d/c leiva . Renal will sign off. Review of Systems Review of Systems Narrative Review of Systems: Patient denies any chest pain, shortness of breath. Denies any nausea, vomiting Exam Vital Signs Temp Pulse Resp BP Pulse Ox O2 Del Method 37.1 C 78 18 151/81 H 98 Room Air 11/03/24 20:31 11/03/24 20:31 11/03/24 20:31 11/03/24 20:31 11/03/24 20:31 11/03/24 20:31 Narrative Exam General: Pleasant and Conversational, fingernails and toenails with visible subungual dirt bilaterally Non-toxic appearing. HEENT: Normocephalic, atraumatic, mucous membranes dry. Heart: Regular rate and rhythm, normal S1 and S2, no murmurs. Lungs: Clear to auscultation with no wheezing or crackles. Abdomen: Soft, nondistended, nontender, positive bowel sounds. ?No guarding or rebound tenderness. Neurologic: Alert and oriented x3 , no gross neurological deficit, and patient able to move all 4 extremities. 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 Skin: No rash or ecchymoses. Objective Labs 11/04/24 04:58 11/04/24 04:58 Labs: Laboratory Results - last 24 hr 11/03/24 05:34 WBC 5.7 RBC 3.81 L Hgb 10.3 L Hct 32.0 L MCV 84 MCH 27.0 MCHC 32.2 RDW Std Deviation 45.7 H Plt Count 210 Neut % (Auto) 66 Lymph % (Auto) 18 [place] % (Auto) 7 Eos % (Auto) 8 Baso % (Auto) 1 Neut # (Auto) 3.8 Lymph # (Auto) 1.1 [place] # (Auto) 0.4 Eos # (Auto) 0.5 Baso # (Auto) 0.0 Immature Gran # (Auto) 0.01 H Absolute Nucleated RBC 0.00 Immature Gran % 0 Nucleated RBC % 0 Sodium 139 Potassium 4.2 Chloride 106 Carbon Dioxide 23.9 Anion Gap 9 BUN 19 Creatinine 1.0 Estim Creat Clear Calc 57.3 L eGFR > 60 BUN/Creatinine Ratio 19 Glucose 270 H D Calculated Osmolality 289 Calcium 8.4 Corrected Calcium 9.2 Total Bilirubin 0.5 AST 13 ALT 7 L Alkaline Phosphatase 40 L Total Protein 4.7 L Albumin 3.0 L Globulin 1.7 L Albumin/Globulin Ratio 1.8 ABG Interpretation ABG results: 10/31/24 10/31/24 10/31/24 06:50 15:30 18:43 VBG pH 7.31 L 7.49 7.41 VBG pCO2 41 28 L D 43 D VBG pO2 53 176 H D 36 D VBG Base Excess -5 L -1 2 Assessment & Plan Additional Assessment & Plan Additional Plan: Mr Maynard is a 78 yo gentlmeman with a hx of HTN and Type 1vs type 2 DM with insulin pump (a1c 11.7), COPD (prescribed O2, but not using) who was found down by his daughter debbie and brought in, found to have severe hyperglycemia consistent with HHS, EKG with nonspecific ST changes, troponin peaked, NSTEMI type II Cards consulted, and RAMBO likely prerenal 2/2 hypovolemia admitted to the ICU then downgraded to floors, RAMBO now resolved. blood sugars are well controlled with insulin pump. #RAMBO- likely prerenal hypovolemia in setting of #HHS- resolved 2.0 now 1.7 after IVF egfr 41 in setting of HHS, pt likely had profound intravascular volume depletion 2/2 severe osmotic diuresis, on 11/01 pt appears very hypovolemic on exam. dry mucus membranes, UOP is 1200, on 11/04 pt appears more euvolemic on exam. Cr 1.0 Plan - encourage PO intake - avoid nephrotoxic agents - renally dose medications Renal will sign off. Thank you for the consult. #Nongap metabolic acidosis- resolving #hypernatremia- resolved #hyperkalemia- resolved #Hyperchloremia Lactic Acid 5.1 from 5.4 down to Bicarb 20, hyperchloremia 111 On 11/01 Cr 1.4 from 1.7, BUN 27 gfr 52, appears hypovoelmic on exam On 11/02 Cr 1.2 from 1.4, BUN 25, appears more euvolemic on exam #AMS 2/2- resolved #Severe hyperglycemia consistent with HHS- resolved #glucosuria #T2DM vs T1DM on insulin pump #asymptomatic episodes of hypogylcemia to 30s A1c : 11.7, Serum glucose 955 now 570, Finger Blood Sugar 600s, now 141 Corrected Na: 167 (Serum Na 146, Serum glucose 955: Measured sodium + 0.024 * (Serum glucose - 100)) Serum osm 320, VBG ph 3.1, Bicarb 20, UA with 4+ glucose, 1+ ketones, Beta hydroxy buterate 1.8 AMS likely 2/2 HHS, suspect metabolic derrangements contributing to pts AMS ammonia levels < 10, TSH wnl, low level of suspicion for infxn etiologies given pt is afebrile, wbc wnl, procalcitoin wnl , low level of suspician for stuctural etiologies given CT head negative, query toxins although lower on ddx. given pt reports hx of having taken metformin in when he was initially diagnosed, query converson of T2DM to T1 vs Latent auto immune diabetes in adults. 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 BG have been well controlled on insulin pump - pending c peptide - management per primary team #Other problems #NSTEMI II ? #palpatations query arrhythmias pt does not follow with clinical evaluator -trop elevation 7.826, continue to trend -BNP elevated 194 -cards consulted, on acs heparin drip #HLD #HTN #COPD on home O2 #restless leg syndrome #hx colon cancer s/p chemo and surgery, remission, does not follow up with oncology #malnutrition - management per primary team Quality - progress note Quality Measures Quality Measures: VTE prophylaxis Reason for Continued Stay Reason for Continued Stay: further monitoring
--- NOTE | 2024-11-03 10:09 | PC.SS ---
1000-Pt is a 78 yo male who was admitted for hyperglycemic hypersomolar on 10/31/24. ASW completed the initial assessment with the pts daughter Lambert John [phone]. Lambert reports pts PCP is a provider from [facility] and used pharmacy [facility] on [address] [place]. Lambert reported that pt does not have a speciality provider. She reported the pt uses a cane and a powered wheel chair and his ADLs are limited. Lambert reported she will assist pt with cooking and cleaning, but pt is able to groom himself and other small duties around his home. Lambert reported that the pt states he is a Full Code. She stated pt is supposed to use O2, but does not. There is no POLST or Advance directive in place; however, mira Verdin is the surrogate decision maker. Pt would come home rather than the possibility of a SNF. Would consider Home health if needed. d/c plan: Home with home health if needed Decision Maker: Mira John [phone] Transportation: EMS transport Code: Full Code
--- NOTE | 2024-11-03 12:16 | ESPR_ITS ---
<Statement entered by Uday Pascual MD - 11/03/24 15:39> Patient was seen and examined at bedside. I agree on the assessment and plan on this note as documented by resident Veronica Pastor DO PGY1. 78-year-old male with past medical history as below admitted for hyperosmotic hyperglycemic state, has improved significantly mentation seems to be at baseline, did have a rapid response overnight for chest pressure EKG unremarkable, cardiology following patient has a planned cardiac catheterization in a.m. will continue insulin pump overnight, instructed patient to use insulin pump at 4 AM will sign out to night team, n.p.o. after midnight. Echocardiogram did show apical akinesis/hypokinesis consistent with Takotsubo syndrome. Continue other management as below, disposition telemetry pending cardiac catheterization. Case discussed with attending Dr. Tony Pascual MD PGY-2 Documentation for date of: 11/03/24 Subjective Subjective Interval history: Overnight, patient had a rapid called for chest like pressure, troponin 1.7 (down trended from admission) and EKG showed no ST segment changes. Resolved without intervention. Overnight, patient's insulin pump was stopped due to nursing miscommunication. SSI was started overnight and discontinued in the morning. Patient was seen and examined at bedside. Patient reports feeling well today, denies chest pain or chest pressure. ANO x 3. Insulin pump resumed and SSI held. Do not stop insulin pump overnight. Cardiac cath planned for tomorrow. Continue MRSA nares treatment. Exam Vital Signs Temp Pulse Resp BP Pulse Ox O2 Del Method 98.8 F 88 19 146/76 H 99 Room Air 11/03/24 08:00 11/03/24 08:14 11/03/24 08:00 11/03/24 08:14 11/03/24 08:00 11/03/24 08:00 Narrative Exam GENERAL: AOx3, no acute distress, unkempt HEENT: NC/AT, mucous membranes moist, bilateral sclera anicteric CARDIOVASCULAR: regular rate and rhythm, S1/S2 present, no murmurs appreciated PULMONARY: clear to auscultation bilaterally, no rales/rhonchi/wheezes ABDOMINAL: soft, non-tender, non-distended, no rebound/guarding, bowel sounds present EXTREMITIES: no peripheral edema, left index amputation at PIP SKIN: warm and dry, intact, no rashes NEURO: CN II-XII grossly intact, no focal deficits, alert, following commands Objective Labs 11/03/24 05:34 11/03/24 05:34 Labs: Laboratory Results - last 24 hr 11/02/24 11/03/24 19:57 05:34 WBC 5.7 RBC 3.81 L Hgb 10.3 L Hct 32.0 L MCV 84 MCH 27.0 MCHC 32.2 RDW Std Deviation 45.7 H Plt Count 210 Neut % (Auto) 66 Lymph % (Auto) 18 Stanton % (Auto) 7 Eos % (Auto) 8 Baso % (Auto) 1 Neut # (Auto) 3.8 Lymph # (Auto) 1.1 Stanton # (Auto) 0.4 Eos # (Auto) 0.5 Baso # (Auto) 0.0 Immature Gran # (Auto) 0.01 H Absolute Nucleated RBC 0.00 Immature Gran % 0 Nucleated RBC % 0 Sodium 139 Potassium 4.2 Chloride 106 Carbon Dioxide 23.9 Anion Gap 9 BUN 19 Creatinine 1.0 Estim Creat Clear Calc 57.3 L eGFR > 60 BUN/Creatinine Ratio 19 Glucose 270 H D Calculated Osmolality 289 Calcium 8.4 Corrected Calcium 9.2 Total Bilirubin 0.5 AST 13 ALT 7 L Alkaline Phosphatase 40 L Troponin I 1.702 H* D Total Protein 4.7 L Albumin 3.0 L Globulin 1.7 L Albumin/Globulin Ratio 1.8 ABG Interpretation ABG results: 10/31/24 10/31/24 10/31/24 06:50 15:30 18:43 VBG pH 7.31 L 7.49 7.41 VBG pCO2 41 28 L D 43 D VBG pO2 53 176 H D 36 D VBG Base Excess -5 L -1 2 Quality Measures Quality Measures none Advance care planning discussed with:: patient Assessment & Plan Assessment Current Active Medications: Generic Name Dose Route Start Last Admin Trade Name Freq PRN Reason Stop Dose Admin Acetaminophen 650 mg 10/31/24 08:33 Acetaminophen 325 Mg Tablet PO 11/30/24 08:32 Q4HR PRN PAIN SCALE 1-3 (mild Acetaminophen 650 mg 10/31/24 17:41 Acetaminophen Supp 650 Mg Supp VA 11/30/24 17:40 Q4HR PRN PAIN 1-3 OR FEVER > 101 Aspirin 81 mg 11/01/24 09:00 11/03/24 08:15 Aspirin Ec 81 Mg Tabec PO 12/01/24 08:59 81 mg QDAY PIERCE Administration Atorvastatin Calcium 80 mg 11/01/24 21:00 11/02/24 22:08 Atorvastatin Calcium 20 Mg Tablet PO 12/01/24 20:59 80 mg HS PIERCE Administration Dextrose 25 ml 10/31/24 10:28 Dextrose 50%-Water Inj 50 Ml Syringe IV 11/30/24 10:27 Q15MIN PRN BG 50-70 responsive npo pt Dextrose 50 ml 10/31/24 10:28 11/01/24 07:40 Dextrose 50%-Water Inj 50 Ml Syringe IV 11/30/24 10:27 50 ml Q15MIN PRN Administration BG <50 OR BG <70 & pt unresponsive Escitalopram Oxalate 20 mg 11/02/24 09:00 11/03/24 08:13 Escitalopram Oxalate 10 Mg Tablet PO 12/02/24 08:59 20 mg QDAY PIERCE Administration Glucagon 1 mg 10/31/24 10:28 Glucagon Inj 1 Mg Vial IM Q15MIN PRN BG <70, and no IV access Heparin Sodium (Porcine) 5,000 unit 11/02/24 08:00 11/03/24 08:12 Heparin Sod Inj 5000 Unit/Ml Vial SC 11/16/24 07:59 5,000 unit Q12HR PIERCE Administration Insulin Human Lispro 0 unit 11/03/24 07:30 11/03/24 08:15 Insulin Lispro (Admelog) 1 Unit/0.01 Ml Unit SC 12/03/24 07:29 Not Given AC [facility] Protocol Lisinopril 20 mg 11/03/24 08:00 11/03/24 08:14 Lisinopril 20 Mg Tablet PO 12/03/24 07:59 20 mg QDAY PIERCE Administration Magnesium Hydroxide 30 ml 10/31/24 08:33 Milk Of Magnesia Susp 30 Ml Udc PO 11/30/24 08:32 QDAY PRN CONSTIPATION Mupirocin 0 gm 11/02/24 10:00 11/03/24 05:39 Mupirocin Oint 2% 15 Gm Tube TOP 11/09/24 09:59 1 appln TID PIERCE Administration Oxycodone/Acetaminophen 1 tab 11/02/24 07:54 Oxycodone/Apap 5/325 Tablet PO 11/07/24 07:48 Q8H PRN PAIN SCALE 4-10(Mod-Sev Pantoprazole Sodium 40 mg 10/31/24 09:00 11/03/24 08:15 Pantoprazole 40 Mg Tablet PO 11/30/24 08:59 40 mg QDAY PIERCE Administration Polyethylene Glycol 17 gm 11/03/24 09:00 11/03/24 08:18 Polyethylene Glycol 17 Gm Packet PO 12/03/24 08:59 Not Given QDAY PIERCE Ropinirole HCl 8 mg 11/01/24 21:00 11/02/24 22:07 Ropinirole Hcl 1 Mg Tablet PO 12/01/24 20:59 8 mg HS PIERCE Administration Sennosides 1 tab 11/03/24 09:00 11/03/24 08:18 Senna/Docusate Sod 1 Tab Tablet PO 12/03/24 08:59 Not Given QDAY PIERCE Protocol Sodium Chloride 3 ml 10/31/24 08:38 10/31/24 08:50 Sodium Chloride Rt Ramya 0.9% 3 Ml Nebu INH 11/30/24 08:37 3 ml PRN PRN Administration SOLN Plan Mr. John is a 78-year-old male with past medical history of poorly controlled type 1 diabetes, COPD, depression, colon cancer in remission (s/p chemo and resection), restless leg syndrome brought into the ED on 10/31/2024 for altered mental status and was found to have a glucose of 955, A1c of 11.7 and lactic acid of 5.4. Admitted for management of hyperosmotic hyperglycemic state and altered mental status. #Hyperosmotic hyperglycemic state 2/2 (resolving) #Acute encephalopathy 2/2 HHS (resolved) #Diabetes mellitus type 1 #Lactic acidosis, resolved Patient has a history of type 1 diabetes which was managed on insulin pump. Noncompliant since pump broke. Findings consistent with hyperosmolar hyperglycemic state: Pt dehydrated, blood glucose 955, A1c 11.7, latic acid 5.4. Non anion gap acidosis on admision, VBG ph7.31, bicarb 19.UA trace of glucose (4+), ketones (1+), beta-hydroxybutyrate 1.8. He was in a state of of nonacidotic hyperglycemia, that has resolved. Lactic acid from 5.4-5.1 Plan - Monitor mentation, improving - Insulin sliding scale held - CTM Mg and phos - Seizure and aspiration precautions - Continue insulin pump - F/u C-peptide #Elevated troponins #NSTEMI type I vs type II #Stress Cardiomyopathy (Takotsubo cardiomyopathy) Admission troponins 2.855, peaked at 9.783, and now 1.702. Does not report active chest pain at the moment. Most recent EKG on 10/31/2024 was negative for any acute ST segment changes. BNP elevated 194. 10/31/24-Echo was positive for Normal-sized left ventricle with evidence of basal hyperkinesis and anteroapical apical inferoapical akinesis and apical dyskinesis suggestive and consistent with stress-induced cardiomyopathy (Takotsubo cardiomyopathy), Proximal left ventricular ejection fraction is 55 to 60% global LV function is well-preserved, RV normal in size and function, LA moderately dilated, Trace TR and MR Ddx: likely type II 2/2 HHS demand ischemia, however type I cannot be ruled out given patient's cardiac history Urine tox is positive for Marijuana only Plan- - Continue aspirin 81 mg p.o. daily - Cardiology consulted, plans for coronary angiogram on 11/04/2024 to rule out ischemic cardiomyopathy - Stopped heparin drip -Maintain K >4.0 and Mg >2.0 #MRSA nares positive Plan - Mupirocin for positive MRSA screen (11/02 - ) #RAMBO likely prerenal, resolved #Hypernatremia, resolved #Hyperkalemia (resolved) Per chart review, CKD history unable to be determined on admission. Admission creatinine 2.0 and GFR 34. Baseline creatinine 1.0-1.3. Following resolution of HHS, Cr 1.0 and GFR>60. UA negative proteins. On admission Na 146, K 6.2, resolved with fluids. s/p calcium 1gm gluconate, albuterol in ED Plan - Encourage oral hydration - Avoid nephrotoxic agents - Renally dose medications - Nephrology onboard- c-peptide pending # Depression Patient has Hx depression which is managed with home med escitalopram Plan -resume home meds escitalopram 20 mg PO Qday #Restless leg syndrome Per chart review history of restless leg syndrome on home med ropinirole 8mg PO HS Plan - Continue with home meds ropinirole 8mg po #COPD Patient has a history of COPD on home O2 pt has history of COPD per daughter. Saturating well on room air Plan -Monitor O2 sat #Primary Hypertension Admission BP 178/103 mmhg. Currently wnl with medication. Plan - Resumed home meds lisinopril 10 mg PO QD #Colon cancer in remission (s/p chemo and resection) #Normocytic anemia Patient is aware of his diagnosis of colon cancer on remission but declines further evaluation or management at this time. Daughter, who is present at the bedside, is aware of the patient decision, family does not wish to pursue additional workup or treatment. Ddx: likely multifactorial due to numerous comorbidities, anemia of chronic disease iso hx of colon cancer Plan - Continue to monitor H/H Hospital management: Lines: peripheral IV Diet: Consistent carb low Bowel: Senna/Doc, Miralax, Milk of Mg supp GI prophylaxis: PO pantoprazole 40 QD DVT prophylaxis: Heparin q12 Disposition: tele for cardiac cath CODE STATUS: Full code Plan of care discussed with attending Dr. Foster, and PGY-2 Dr. Pascual. Veronica Pastor, DO PGY-1 Internal Medicine Attending Provider Attestation/Addendum I attest that I was physically present for the evaluation, physical examination, lab and imaging review of the patient with the residents. I discussed the case with the residents and agree with the findings and plans of care as documented above. Overnight, patient had a rapid response called due to chest discomfort. EKG was done, unchanged from prior study, troponin was also ordered continues to downtrend compared to previous readings. Continues to be alert and oriented, able to answer questions and follow commands appropriately. Patient is planned for cardiac catheterization tomorrow with cardiology. We will continue with the insulin pump and we will hold the pump in a.m. once patient is n.p.o. for cardiac catheterization. Blood pressure is in higher side this morning, we will increase lisinopril from 10 mg to 20 mg daily. Tony Foster MD
--- NOTE | 2024-11-03 14:46 | PC.NURSE ---
Daughter, Lambert, at bedside demonstrated how to calibrate patient's glucose level to his insulin pump. Patients sugar on the pump was 110 and on our glucose machine it was 81.
[2024-11-03] MEDS: TICAGRELOR 90 MG TABLET 180 MG PO (17:03)
[2024-11-03] MEDS: METOPROLOL SUCCINATE XL 25 MG TABCR PO (17:03)
--- NOTE | 2024-11-03 18:25 | ESPR_ITS ---
RE: XIAO JOHN : 1945 DATE OF SERVICE: 11/03/2024 Mr. John is a 78-year-old male who is much more alert and awake today, came to the hospital with hyperosmolar state, hyperkalemia, acute kidney injury, unstable condition, and altered mental status. Now, he is mentally very clear. The patient apparently had some type of chest discomfort yesterday, felt like a fluttering sensation in the chest. EKG showed deep symmetrical T-wave inversions, a definite change from before, suspicious for LAD stenosis. The patient will be started on Brilinta today because of concern about significant LAD occlusion. The patient is not having any symptoms today. He is on aspirin. Hyperglycemia is improved as well. He is not having any shortness of breath or chest pain. His lab data showed hemoglobin 10. Chemistry panel showed creatinine is 1, BUN is normal, and glucose is still around . Troponin came down to 1.7, definitely declined from the troponin peak. The troponin was about 14 on 10/31. CLINICAL EXAMINATION: Vital Signs: Shows the blood pressure is 121/72, pulse rate is 73, respirations 19, temperature is normal. Neck: Supple. No JVD. Lungs: Decreased breath sounds. Heart: S1 and S2 regular. No gallops. Abdomen: Benign. Soft. Extremities: No edema. ASSESSMENT: 1. Acute [id number] elevation myocardial infarction with recurrent chest discomfort and T-wave inversions in the precordial leads, possible LAD occlusion. 2. Diabetes mellitus, poorly controlled, insulin requiring . 3. Status post hyperosmolar state, hyperglycemia, improved. 4. Acute kidney injury, resolved. RECOMMENDATIONS: We will continue aspirin. Start the patient on Brilinta. Schedule the patient for coronary angiogram tomorrow. We will also start him on low-dose metoprolol 25 mg daily. DT: 16:45:52 TT: 17:58:00 Ref: [id number] - TID: [id number]
[2024-11-03] MEDS: ATORVASTATIN CALCIUM 20 MG TABLET 80 MG PO (21:58)
[2024-11-04] VITALS (22 sets, daily range): BP systolic 114–164; BP diastolic 66–95; PULSE 66–99; RESP 16–19; TEMP 35.9–36.9; O2SAT 93–100; BMI 26.6
[2024-11-04] MEDS: MUPIROCIN OINT 2% 15 GM TUBE TOP ×3 (06:13→21:35)
[2024-11-04 06:17] LABS: Basophils # (Auto) 0.1 Thou/mm3 (0.0-0.2); Basophils % (Auto) 1 % (0-2.5); Eosinophils # (Auto) 0.5 Thou/mm3 (0.0-0.5); Eosinophils % (Auto) 8 % (0-10); Hematocrit 36.2 % (41.0-53.0); Hemoglobin 11.7 g/dL (13.5-16.0); Immature Granulocytes Auto 0.02 Thou/mm3 (0.00-0.00); Lymphocytes # (Auto) 1.1 Thou/mm3 (1.0-4.8); Lymphocytes % (Auto) 19 % (10-50); Mean Corpuscular HGB Conc 32.3 g/dl (31.0-37.0); Mean Corpuscular Hemoglobin 27.0 pg (25.0-35.0); Mean Corpuscular Volume 83 fL (80-100); Monocytes # (Auto) 0.5 Thou/mm3 (0.0-0.8); Monocytes % (Auto) 9 % (0-12); Neutrophils # (Auto) 3.6 Thou/mm3 (1.8-7.7); Neutrophils % (Auto) 63 % (37-80); Nucleated Red Blood Cell # 0.00 Thou/mm3 (0.00-0.00); Nucleated Red Blood Cell % 0 /100 WBC (0); Platelet Count 227 Thou/mm3 (140-440); RDW Standard Deviation 45.2 fL (35.1-43.9); Red Blood Count 4.34 Miln/mm3 (4.50-5.90); White Blood Count 5.7 Thou/mm3 (3.8-10.6)
[2024-11-04 07:00] LABS: Alanine Aminotransferase 7 U/L (10-49); Albumin, Serum 3.3 gm/dL (3.4-4.8); Albumin/Globulin Ratio 1.7 (1.2-2.2); Alkaline Phosphatase 44 U/L (46-116); Anion Gap 7 (7-16); Aspartate Amino Transferase 13 U/L (0-34); BUN/Creatinine Ratio 18 Ratio (12-20); Bilirubin,Total 0.4 mg/dL (0.3-1.2); Blood Urea Nitrogen 21 mg/dL (9-23); Calcium 9.0 mg/dL (8.3-10.6); Calcium (Corrected) 9.6 mg/dL (8.5-10.1); Carbon Dioxide 25.8 mMol/L (20.0-31.0); Chloride 106 mMol/L (98-107); Creatinine (Component) 1.2 mg/dL (0.6-1.3); Estimated Creatinine Clearance 47.8 mL/min (>60); Globulin 1.9 gm/dL (2.3-3.5); Glucose 172 mg/dL (74-106); Magnesium 1.7 mg/dL (1.6-2.6); Osmolality,Calculated 284 (275-295); Potassium 4.2 mMol/L (3.4-5.1); Sodium 139 mMol/L (136-145); Total Protein 5.2 gm/dL (5.7-8.2); eGFR > 60 See Note
--- NOTE | 2024-11-04 09:36 | ESOP_ITS ---
RE: XIAO LANDIN : 1945 DATE OF OPERATION: 11/04/2024 PROCEDURES PERFORMED: 1. Emergency diagnostic left heart cardiac catheterization, selective coronary angiogram, left ventricular angiogram, CPT 48998. 2. PCI, PTCA stent placement of the proximal left anterior descending artery with placement of drug-eluting stent 2.75 x 15 mm followed by 2.75 x 8 mm Xience Abbot drug- eluting stent placement. Pre-procedure stenosis was 90%, post-procedure stenosis was 0%. Pre-procedure AUTUMN flow was 3, post-procedure AUTUMN flow was 3, CPT codes were 58394 and 29813. 3. Ultrasound-guided access of the right radial artery. 4. Conscious sedation for 30-minute duration. DIAGNOSES: Acute myocardial infarction, recurrent chest pain post myocardial infarction. HISTORY AND INDICATIONS: The patient is a 78-year-old male with a history of hypertension, diabetes mellitus, hypercholesterolemia, who came to the hospital with hyperosmolar state, hyperkalemia and acute kidney injury. He was hydrated well after IV fluids were given and potassium was corrected. The patient had uncontrolled diabetes mellitus. The patient was found to have an initial normal troponin, which went up to 14 and came down to normal. Subsequently when he was more awake and alert, he was having chest tightness and deep symmetrical T- wave inversions in the precordial leads, highly suspicious for proximal LAD stenosis hence emergency coronary angiogram and cardiac catheterization was recommended to assess the patient is a candidate for PCI intervention. DESCRIPTION OF PROCEDURE: The patient was brought to the cardiac catheterization laboratory where he was given 2 mg Versed and 100 mcg of fentanyl for conscious sedation and right radial approach was taken. Right radial artery was cannulated by micropuncture technique. Ultrasound guidance was used and 6-Togolese Glidesheath was introduced. Selective diagnostic right and left coronary angiogram, left heart catheterization with left ventricular angiogram performed by a 5-Togolese TIG-4 diagnostic catheter. After the diagnostic procedure, PCI was undertaken. Diagnostic procedure showed following findings. Left ventricular pressure was 85/5, EDP is only 5, and aortic pressure was 85/60, no gradient across the aortic valve. Left ventricular angiogram showed evidence of anterior apical akinesis and hypokinesis. Ejection fraction was well preserved at 55%. Coronary angiogram shows the following findings. The right coronary artery is large and dominant showed evidence of mild plaque in the proximal segment. The mid right coronary artery showed long tubular 75% to 80% stenosis, moderate disease. The distal right coronary artery also showed mild plaque. It gives off PDA and PL branches, which are free of disease. Left coronary system; the left main coronary artery was normal. The left anterior descending artery showed evidence of 90% stenosis in the proximal left anterior descending artery, culprit lesion, culprit vessel. It is 2.5 to 2.75 mm vessel. Left circumflex gives off small obtuse marginal branch, which showed a 40% stenosis of the proximal segment, mild plaque. Following the diagnostic procedure, intervention was undertaken. The patient was given additional heparin in addition to a radial cocktail, total of 5000 units for ACT 275. We proceeded with PCI. The patient was already loaded with Brilinta 180 mg yesterday along with aspirin and we proceeded with a PCI. A 6-Togolese JL3.5 guiding catheter was used to cannulate the left main coronary artery. A 0.014-Runthrough guidewire was used to cross the lesion successfully. Pre- dilation of the lesion was performed by a 2 x 12 mm Medtronic balloon. Subsequently, we proceeded with stent placement. The proximal left anterior descending artery was stented using 2.75 x 15 mm Xience Alves drug-eluting stent, which with 12 atmospheric nominal pressure was dilated. There were one more additional lesion just below this lesion. Hence, additional stent placement was then performed. An additional stent placement 2.75 x 8 mm Xience Alves stent was deployed successfully distal to the original stent with the final angiogram showing an excellent angiographic result. There was no residual stenosis. AUTUMN flow was 3. 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 There were no complications during the procedure. RECOMMENDATIONS: The patient will be recommended to continue medical management. The RCA will be addressed later if he has chest pain or an abnormal nuclear stress test. Following discharge, we will do a nuclear scan and stress test and proceed with a PTCA and stent placement unless the patient has significant anginal symptoms. We may consider doing stent placement of the right coronary artery without doing any further stress testing. Discharge home on aspirin 81 mg daily, Brilinta 90 mg twice daily, and intensive statin therapy as tolerated and follow up within a week in my office. DT: 08:50:42 TT: 09:20:00 Ref: [id number] - TID: [id number] MTDD
[2024-11-04 10:55] LABS: ACT (CATH LAB ONLY) 265.0 Seconds (89-169)
--- NOTE | 2024-11-04 11:08 | ESPR_ITS ---
<Statement entered by Tony Foster MD - 11/05/24 09:28> I attest that I was physically present for the evaluation, physical examination, lab and imaging review of the patient with the residents. I discussed the case with the residents and agree with the findings and plans of care as documented below. Tony Foster MD <Statement entered by Silverio Benedict MD - 11/04/24 17:19> Pt is seen at bedside, Pt underwent coronary angiogram today with Dr. Bryant which showed 90% occlusion of the LAD and 2 stents were placed. Pt is stab;e, denies any SOB or chest pain. Tolerated oral diet after the angiogram and resumed his insulin pump. Will continue to monitor BG closely. Pt is started of brilinta and Aspirin by the field investigator. Patient was seen and examined by me personally. I have directly supervised and reviewed documentation by the team resident and agree with its findings. ------- Plan of care was discussed with the attending, Dr. Kristin Benedict, PGY-2 Documentation for date of: 11/04/24 Subjective Subjective Interval history: No acute event overnight, Today, patient was seen and examined at bedside. No acute complaints. Denies chest pain, palpitation, nausea and vomiting. Saturating well on room air. Vitals are within normal limit AM labs review and significant for glucose of 172 ( improving). H/H stable. Mg repleted. Cardiac angiogram done today. Findings of consistent double vessel coronary artery disease, angioplasty of proximal LAD, and distal LAD. The mid right coronary artery showed long tubular 75% to 80% stenosis, moderate disease. The left anterior descending artery showed evidence of 90% stenosis in the proximal left anterior descending artery, culprit lesion. Per Dr. Bryant RCA will be addressed later if he the patient has chest pain or an abnormal nuclear stress test. Following discharge, will do a nuclear scan and stress test and proceed with a PTCA and stent placement unless the patient has significant anginal symptoms. May consider doing stent placement of the RCA without doing any further stress testing. Will continue to monitor patient overnight for s/p cardiac cath complications like cardiac arrhythmias Resume cardiac diet. Exam Vital Signs Temp Pulse Resp BP Pulse Ox O2 Del Method 97.8 F 84 17 149/86 H 97 Room Air 11/04/24 08:49 08/25/25 10:30 11/04/24 10:30 11/04/24 10:30 11/04/24 10:30 11/04/24 10:30 Narrative Exam GENERAL: AOx3, no acute distress, unkempt HEENT: NC/AT, mucous membranes moist, bilateral sclera anicteric CARDIOVASCULAR: regular rate and rhythm, S1/S2 present, no murmurs appreciated PULMONARY: clear to auscultation bilaterally, no rales/rhonchi/wheezes ABDOMINAL: soft, non-tender, non-distended, no rebound/guarding, bowel sounds present EXTREMITIES: no peripheral edema, left index amputation at PIP SKIN: warm and dry, intact, no rashes NEURO: CN II-XII grossly intact, no focal deficits, alert, following commands Objective Labs 11/05/24 07:45 11/05/24 07:45 Labs: Laboratory Results - last 24 hr 11/04/24 11/04/24 04:58 08:25 WBC 5.7 RBC 4.34 L Hgb 11.7 L Hct 36.2 L MCV 83 MCH 27.0 MCHC 32.3 RDW Std Deviation 45.2 H Plt Count 227 Neut % (Auto) 63 Lymph % (Auto) 19 Brown % (Auto) 9 Eos % (Auto) 8 Baso % (Auto) 1 Neut # (Auto) 3.6 Lymph # (Auto) 1.1 Brown # (Auto) 0.5 Eos # (Auto) 0.5 Baso # (Auto) 0.1 Immature Gran # (Auto) 0.02 H Absolute Nucleated RBC 0.00 Immature Gran % 0 Nucleated RBC % 0 Activated Clotting Time 265.0 H Sodium 139 Potassium 4.2 Chloride 106 Carbon Dioxide 25.8 Anion Gap 7 BUN 21 Creatinine 1.2 Estim Creat Clear Calc 47.8 L eGFR > 60 BUN/Creatinine Ratio 18 Glucose 172 H D Calculated Osmolality 284 Calcium 9.0 Corrected Calcium 9.6 Magnesium 1.7 Total Bilirubin 0.4 AST 13 ALT 7 L Alkaline Phosphatase 44 L Total Protein 5.2 L Albumin 3.3 L Globulin 1.9 L Albumin/Globulin Ratio 1.7 ABG Interpretation ABG results: 10/31/24 10/31/24 10/31/24 06:50 15:30 18:43 VBG pH 7.31 L 7.49 7.41 VBG pCO2 41 28 L D 43 D VBG pO2 53 176 H D 36 D VBG Base Excess -5 L -1 2 Quality Measures Quality Measures none Advance care planning discussed with:: patient Assessment & Plan Assessment Current Active Medications: Generic Name Dose Route Start Last Admin Trade Name Freq PRN Reason Stop Dose Admin Acetaminophen 650 mg 10/31/24 08:33 Acetaminophen 325 Mg Tablet PO 11/30/24 08:32 Q4HR PRN PAIN SCALE 1-3 (mild Acetaminophen 650 mg 10/31/24 17:41 Acetaminophen Supp 650 Mg Supp OK 11/30/24 17:40 Q4HR PRN PAIN 1-3 OR FEVER > 101 Aspirin 81 mg 11/01/24 09:00 11/03/24 08:15 Aspirin Ec 81 Mg Tabec PO 12/01/24 08:59 81 mg QDAY PIERCE Administration Atorvastatin Calcium 80 mg 11/01/24 21:00 11/03/24 21:58 Atorvastatin Calcium 20 Mg Tablet PO 12/01/24 20:59 80 mg HS PIERCE Administration Dextrose 25 ml 10/31/24 10:28 Dextrose 50%-Water Inj 50 Ml Syringe IV 11/30/24 10:27 Q15MIN PRN BG 50-70 responsive npo pt Dextrose 50 ml 10/31/24 10:28 11/01/24 07:40 Dextrose 50%-Water Inj 50 Ml Syringe IV 11/30/24 10:27 50 ml Q15MIN PRN Administration BG <50 OR BG <70 & pt unresponsive Escitalopram Oxalate 20 mg 11/02/24 09:00 11/03/24 08:13 Escitalopram Oxalate 10 Mg Tablet PO 12/02/24 08:59 20 mg QDAY PIERCE Administration Glucagon 1 mg 10/31/24 10:28 Glucagon Inj 1 Mg Vial IM Q15MIN PRN BG <70, and no IV access Heparin Sodium (Porcine) 5,000 unit 11/02/24 08:00 11/03/24 21:58 Heparin Sod Inj 5000 Unit/Ml Vial SC 11/16/24 07:59 5,000 unit Q12HR PIERCE Administration Magnesium Sulfate 4 gm in 50 mls @ 12.5 mls/hr 11/04/24 08:02 Magnesium Sulfate Ivpb IV 11/04/24 12:01 X1 ONE Insulin Human Lispro 0 unit 11/03/24 07:30 11/03/24 08:15 Insulin Lispro (Admelog) 1 Unit/0.01 Ml Unit SC 12/03/24 07:29 Not Given AC [facility] Protocol Lisinopril 20 mg 11/03/24 08:00 11/03/24 08:14 Lisinopril 20 Mg Tablet PO 12/03/24 07:59 20 mg QDAY PIERCE Administration Magnesium Hydroxide 30 ml 10/31/24 08:33 Milk Of Magnesia Susp 30 Ml Udc PO 11/30/24 08:32 QDAY PRN CONSTIPATION Metoprolol Succinate 25 mg 11/03/24 17:00 11/03/24 17:03 Metoprolol Succinate Xl 25 Mg Tabcr PO 12/03/24 16:59 25 mg QDAY PIERCE Administration Mupirocin 0 gm 11/02/24 10:00 11/04/24 06:13 Mupirocin Oint 2% 15 Gm Tube TOP 11/09/24 09:59 1 appln TID PIERCE Administration Oxycodone/Acetaminophen 1 tab 11/02/24 07:54 Oxycodone/Apap 5/325 Tablet PO 11/07/24 07:48 Q8H PRN PAIN SCALE 4-10(Mod-Sev Pantoprazole Sodium 40 mg 10/31/24 09:00 11/03/24 08:15 Pantoprazole 40 Mg Tablet PO 11/30/24 08:59 40 mg QDAY PIERCE Administration Polyethylene Glycol 17 gm 11/03/24 09:00 11/03/24 08:18 Polyethylene Glycol 17 Gm Packet PO 12/03/24 08:59 Not Given QDAY PIERCE Ropinirole HCl 8 mg 11/01/24 21:00 11/03/24 21:57 Ropinirole Hcl 1 Mg Tablet PO 12/01/24 20:59 8 mg HS PIERCE Administration Sennosides 1 tab 11/03/24 09:00 11/03/24 08:18 Senna/Docusate Sod 1 Tab Tablet PO 12/03/24 08:59 Not Given QDAY [facility] Protocol Sodium Chloride 3 ml 10/31/24 08:38 10/31/24 08:50 Sodium Chloride Rt Armya 0.9% 3 Ml Nebu INH 11/30/24 08:37 3 ml PRN PRN Administration SOLN Ticagrelor 90 mg 11/04/24 11:15 Ticagrelor 90 Mg Tablet PO 12/04/24 11:14 BID PIERCE Plan Mr. John is a 78-year-old male with past medical history of poorly controlled type 1 diabetes, COPD, depression, colon cancer in remission (s/p chemo and resection), restless leg syndrome brought into the ED on 10/31/2024 for altered mental status and was found to have a glucose of 955, A1c of 11.7 and lactic acid of 5.4. Admitted for management of hyperosmotic hyperglycemic state and altered mental status. #Hyperosmotic hyperglycemic state 2/2 (resolving) #Acute encephalopathy 2/2 HHS (resolved) #Diabetes mellitus type 1 #Lactic acidosis, resolved Patient has a history of type 1 diabetes which was managed on insulin pump. Noncompliant since pump broke. Findings consistent with hyperosmolar hyperglycemic state: Pt dehydrated, blood glucose 955, A1c 11.7, latic acid 5.4. Non anion gap acidosis on admision, VBG ph7.31, bicarb 19.UA trace of glucose (4+), ketones (1+), beta-hydroxybutyrate 1.8. He was in a state of of nonacidotic hyperglycemia, that has resolved. Lactic acid from 5.4-5.1 Plan - Monitor mentation, improving - Insulin sliding scale held - CTM Mg and phos - Seizure and aspiration precautions - Continue insulin pump - F/u C-peptide #Elevated troponins #NSTEMI type I vs type II #Stress Cardiomyopathy (Takotsubo cardiomyopathy) # Coronary artery disease s/p 2 stents on LAD Admission troponins 2.855, peaked at 9.783, and now 1.702. Does not report active chest pain at the moment. Most recent EKG on 10/31/2024 was negative for any acute ST segment changes. BNP elevated 194. 10/31/24-Echo was positive for Normal-sized left ventricle with evidence of basal hyperkinesis and anteroapical apical inferoapical akinesis and apical dyskinesis suggestive and consistent with stress-induced cardiomyopathy (Takotsubo cardiomyopathy), Proximal left ventricular ejection fraction is 55 to 60% global LV function is well-preserved, RV normal in size and function, LA moderately dilated, Trace TR and MR Ddx: likely type II 2/2 HHS demand ischemia, however type I cannot be ruled out given patient's cardiac history. 11/04/24 patien had coronary angiogram done by Dr. Bryant and [address] L[address]Left ventricular angiogram showed evidence of anterior apical akinesis and hypokinesis. Ejection fraction was well preserved at 55%. Urine tox is positive for Marijuana only Plan- - Continue aspirin 81 mg p.o. daily - Cardiology consulted ,coronary angiogram on 11/04/2024. - Started briliant 80mg PO BID - Continue atorvastatin 80 mg PO BID - Continue metropolol succinate 25mg PO - Stopped heparin drip -Maintain K >4.0 and Mg >2.0 #MRSA nares positive Plan - Mupirocin for positive MRSA screen (11/02 - ) #RAMBO likely prerenal, resolved #Hypernatremia, resolved #Hyperkalemia (resolved) Per chart review, CKD history unable to be determined on admission. Admission creatinine 2.0 and GFR 34. Baseline creatinine 1.0-1.3. Following resolution of HHS, Cr 1.0 and GFR>60. UA negative proteins. On admission Na 146, K 6.2, resolved with fluids. s/p calcium 1gm gluconate, albuterol in ED Plan - Encourage oral hydration - Avoid nephrotoxic agents - Renally dose medications - Nephrology onboard- c-peptide pending # Depression Patient has Hx depression which is managed with home med escitalopram Plan -continue home meds escitalopram 20 mg PO Qday #Restless leg syndrome Per chart review history of restless leg syndrome on home med ropinirole 8mg PO HS Plan - Continue with home meds ropinirole 8mg po #COPD Patient has a history of COPD on home O2 pt has history of COPD per daughter. Saturating well on room air Plan -Monitor O2 sat #Primary Hypertension Admission BP 178/103 mmhg. Currently wnl with medication. Plan - Comtinue home med lisinopril 10 mg PO #Colon cancer in remission (s/p chemo and resection) #Normocytic anemia Patient is aware of his diagnosis of colon cancer on remission but declines further evaluation or management at this time. Daughter, who is present at the bedside, is aware of the patient decision, family does not wish to pursue additional workup or treatment. Ddx: likely multifactorial due to numerous comorbidities, anemia of chronic disease in setting hx of colon cancer Plan - Continue to monitor H/H Hospital management: Lines: peripheral IV Diet:cardiac Bowel: Senna/Doc, Miralax, Milk of Mg supp GI prophylaxis: PO pantoprazole 40 QD DVT prophylaxis: Heparin q12 Disposition: tele for cardiac cath CODE STATUS: Full code Patient seen and assessed under supervision of attending physician Dr. Foster and discuss with senior resident Dr. Benedict PGY-2 Carolina Vasquez MD PGY-1, Internal Medicine
--- NOTE | 2024-11-04 13:41 | CHAP ---
Patient was visited by a Spiritual Care Volunteer on 11/04/2024 between 0900 and 0955 and received comfort, encouragement and/or prayer.
[2024-11-04] MEDS: ESCITALOPRAM OXALATE 10 MG TABLET 20 MG PO (13:57)
[2024-11-04] MEDS: SENNA/DOCUSATE SOD 1 TAB TABLET PO (13:58)
[2024-11-04] MEDS: PANTOPRAZOLE 40 MG TABLET PO (13:58)
[2024-11-04] MEDS: METOPROLOL SUCCINATE XL 25 MG TABCR PO (13:58)
[2024-11-04] MEDS: HEPARIN SOD INJ 5000 UNIT/ML VIAL SC ×2 (13:58→21:19)
[2024-11-04] MEDS: POLYETHYLENE GLYCOL 17 GM PACKET PO (13:59)
[2024-11-04] MEDS: Magnesium Sulfate 4 GM Ivpb 4 GM/50 ML BAG IV (13:59)
--- NOTE | 2024-11-04 16:26 | PC.SS ---
Rounding Note: Patient obtained 2 cardiac stents today. Possible d/c tomorrow.
[2024-11-04] MEDS: ATORVASTATIN CALCIUM 20 MG TABLET 80 MG PO (21:17)
[2024-11-04] MEDS: TICAGRELOR 90 MG TABLET PO (21:18)
[2024-11-05] VITALS (7 sets, daily range): BP systolic 97–145; BP diastolic 53–78; PULSE 72–86; RESP 18–21; TEMP 36.2–36.9; O2SAT 93–98; BMI 26.6
[2024-11-05] MEDS: Milk Of Magnesia Susp 30 ML UDC PO (04:16)
[2024-11-05] MEDS: MUPIROCIN OINT 2% 15 GM TUBE TOP (05:14)
[2024-11-05 06:29] LABS: C-Peptide* 0.28 ng/mL (0.80-3.85)
--- NOTE | 2024-11-05 08:48 | PC.NURSE ---
No hold parameters on BP/HR meds. Called to clarify admin with current BP. Per Dr Benedict, hold lisinopril and metoprolol for now
[2024-11-05] MEDS: TICAGRELOR 90 MG TABLET PO (08:50)
[2024-11-05] MEDS: HEPARIN SOD INJ 5000 UNIT/ML VIAL SC (08:51)
[2024-11-05] MEDS: ASPIRIN EC 81 MG TABEC PO (08:51)
[2024-11-05] MEDS: ESCITALOPRAM OXALATE 10 MG TABLET 20 MG PO (08:51)
[2024-11-05] MEDS: PANTOPRAZOLE 40 MG TABLET PO (08:51)
[2024-11-05] MEDS: SENNA/DOCUSATE SOD 1 TAB TABLET PO (08:51)
[2024-11-05] MEDS: POLYETHYLENE GLYCOL 17 GM PACKET PO (08:51)
[2024-11-05 08:57] LABS: Basophils # (Auto) 0.1 Thou/mm3 (0.0-0.2); Basophils % (Auto) 1 % (0-2.5); Eosinophils # (Auto) 0.6 Thou/mm3 (0.0-0.5); Eosinophils % (Auto) 9 % (0-10); Hematocrit 36.4 % (41.0-53.0); Hemoglobin 11.7 g/dL (13.5-16.0); Immature Granulocytes Auto 0.02 Thou/mm3 (0.00-0.00); Lymphocytes # (Auto) 1.2 Thou/mm3 (1.0-4.8); Lymphocytes % (Auto) 16 % (10-50); Mean Corpuscular HGB Conc 32.1 g/dl (31.0-37.0); Mean Corpuscular Hemoglobin 26.7 pg (25.0-35.0); Mean Corpuscular Volume 83 fL (80-100); Monocytes # (Auto) 0.7 Thou/mm3 (0.0-0.8); Monocytes % (Auto) 9 % (0-12); Neutrophils # (Auto) 4.7 Thou/mm3 (1.8-7.7); Neutrophils % (Auto) 65 % (37-80); Nucleated Red Blood Cell # 0.00 Thou/mm3 (0.00-0.00); Nucleated Red Blood Cell % 0 /100 WBC (0); Platelet Count 274 Thou/mm3 (140-440); RDW Standard Deviation 45.5 fL (35.1-43.9); Red Blood Count 4.38 Miln/mm3 (4.50-5.90); White Blood Count 7.3 Thou/mm3 (3.8-10.6)
[2024-11-05 08:58] LABS: Alanine Aminotransferase 9 U/L (10-49); Albumin, Serum 3.3 gm/dL (3.4-4.8); Albumin/Globulin Ratio 1.4 (1.2-2.2); Alkaline Phosphatase 45 U/L (46-116); Anion Gap 6 (7-16); Aspartate Amino Transferase 16 U/L (0-34); BUN/Creatinine Ratio 15 Ratio (12-20); Bilirubin,Total 0.4 mg/dL (0.3-1.2); Blood Urea Nitrogen 16 mg/dL (9-23); Calcium 8.6 mg/dL (8.3-10.6); Calcium (Corrected) 9.2 mg/dL (8.5-10.1); Carbon Dioxide 24.6 mMol/L (20.0-31.0); Chloride 107 mMol/L (98-107); Creatinine (Component) 1.1 mg/dL (0.6-1.3); Estimated Creatinine Clearance 52.1 mL/min (>60); Globulin 2.3 gm/dL (2.3-3.5); Glucose 214 mg/dL (74-106); Magnesium 2.0 mg/dL (1.6-2.6); Osmolality,Calculated 282 (275-295); Potassium 4.5 mMol/L (3.4-5.1); Sodium 138 mMol/L (136-145); Total Protein 5.6 gm/dL (5.7-8.2); eGFR > 60 See Note
--- NOTE | 2024-11-05 11:30 | PC.NURSE ---
Received a call from the daughter Lambert with concerns that the patient was not seen by PT and he feels like he can't walk. I looked up PT notes and informed her he was out of the room for procedure when they stopped by yesterday. I obtained a FWW for pt and saw pt ambulate a lap around the nurses stations. Patient states he feels good. I reported this back to the daughter who was happy to hear this. 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
--- NOTE | 2024-11-05 11:56 | ESDS_ITS ---
<Statement entered by Silverio Benedict MD - 11/06/24 17:31> Patient was seen and examined by me personally. I have directly supervised and reviewed documentation by the team resident and agree with its findings. ------- Discharge plan was discussed with the attending, Dr. Kristin Benedict, PGY-2 Planned Discharge Date 11/05/24 DS: Providers Provider Date of admission: 10/31/24 08:33 Primary care physician: Jose Antonio Donaldson PA-C Admitting Provider: Max Mosher MD Attending Provider on Admission: Tony Foster MD Consults: 10/31/24 07:03 Consult to Nephrology Stat Comment: hyperkalemia Consulting Provider: Monica Burnett 10/31/24 10:29 Referral Registered Dietitian Routine Comment: 10/31/24 15:11 Consult to Cardiology Routine Comment: NSTEMI Consulting Provider: Chantal Bryant 11/01/24 16:21 PT [Referral Physical Therapy] Routine Comment: Physician Instructions: Attending Provider on DC: Tony Foster MD Discharging Provider: Tony Foster MD Anticipated date of discharge: 11/05/24 DS: Diagnosis Problem List Completed Was Problem List Reviewed/Reconciled?: Yes Hospital Course Hospital Course Hospital course: Summary: Mr. John is a 78-year-old male with past medical history of poorly controlled type 1 diabetes, COPD, depression, colon cancer in remission (s/p chemo and resection), restless leg syndrome brought into the [facility] ED on 10/31/2024 for altered mental status and high blood glucose. Pt pump battery function which lead to glucose of 955, A1c of 11.7 and lactic acid of 5.4. Admitted to ICU for hyperosmotic hyperglycemic state and AMS. In the ICU patient was started on Tresiba 30 units, NPH 18 units, LR fluid 1.5 cc/h. Glucose levels downtrended and downgrade to telemetry floors for further evaluation and management. During hospital stay blood glucose levels were managed appropriately with patient insulin pump, insulin sliding scale. Subsequently noted significant improvement in mentation. CT chest/abdomen/pelvis/head negative for any significant abdominal abnormality, EKG shows sinus tachycardia with no ST changes. UA showed positive for glucosuria. U tox positive for marijuana. MRSA nares positive, tx with Mupirocin. On admission troponin was 2.855 uptrended to 14.435. Cardiology consulted recommended cardiac catheterization to assess if the patient had significant stress-induced cardiomyopathy. Echocardiogram showed apical akinesis/hypokinesis consistent with Takotsubo myopathy. Patient was on aspirin, then started the patient on Brilinta, low-dose metoprolol. On 11/04/2024 patient underwent coronary angiogram with Dr. Bryant which showed 90% occlusion of the LAD and 2 stents were placed. Throughout the hospital course patient other problems were managed and his condition improved remarkably with progression of hospital course. Further plan to discharge the patient home aspirin, Brilinta atorvastatin per cardiology recommendation. To be discharged home to self care with the following instructions. Discharge recommendation: -Follow up with Primary Care Provider within 1 week of discharge, if you do not have a primary care physician you can come see us at the [facility] by calling [phone] -Please follow up with health safety and environment manager Dr. Bryant within 1 week -You have been prescribed a blood thinner, which can cause bleeding so please be careful with falls, if you have an injury or fall please immediately go to the Emergency Department -Continue rest of medications as previously prescribed -Return to the Emergency Department or call 911 (Emergency Medical Services) if symptoms return and/or worsen Hospital Diagnoses: #Hyperosmotic hyperglycemic state 2/2 (resolving) #Acute encephalopathy 2/2 HHS (resolved) #Diabetes mellitus type 1 #Lactic acidosis, resolved #Elevated troponins #NSTEMI type I vs type II #Stress Cardiomyopathy (Takotsubo cardiomyopathy) # Coronary artery disease s/p 2 stents on LAD #MRSA nares positive #RAMBO likely prerenal, resolved #Hypernatremia, resolved #Hyperkalemia (resolved) # Depression #Restless leg syndrome #COPD #Primary Hypertension #Colon cancer in remission (s/p chemo and resection) #Normocytic anemia Patient seen and assessed under supervision of attending physician Dr. Foster and discuss with senior resident Dr. Benedict PGY-2 Carolina Vasquez MD PGY-1, Internal Medicine Time Spent with Patient Time attestation: Total time spent providing and/or coordinating discharge services: 35 min Time spent: Greater than 30 minutes Exam Vital Signs Temp Pulse Resp BP Pulse Ox O2 Del Method 97.4 F 86 21 H 97/57 L 93 L Room Air 11/05/24 08:00 11/05/24 08:47 11/05/24 08:00 11/05/24 08:47 11/05/24 08:00 11/05/24 08:00 Narrative Exam GENERAL: AOx3, no acute distress, unkempt HEENT: NC/AT, mucous membranes moist, bilateral sclera anicteric CARDIOVASCULAR: regular rate and rhythm, S1/S2 present, no murmurs appreciated PULMONARY: clear to auscultation bilaterally, no rales/rhonchi/wheezes ABDOMINAL: soft, non-tender, non-distended, no rebound/guarding, bowel sounds present EXTREMITIES: no peripheral edema, left index amputation at PIP SKIN: warm and dry, intact, no rashes NEURO: CN II-XII grossly intact, no focal deficits, alert, following commands Discharge Plan Plan Patient Disposition: HOME (Self Care) Patient condition on transfer: Stable Care Plan Goals: -Follow up with Primary Care Provider within 1 week of discharge, if you do not have a primary care physician you can come see us at the [facility] by calling [phone] -Please follow up with health safety and environment manager Dr. Bryant within 1 week -You have been prescribed a blood thinner, which can cause bleeding so please be careful with falls, if you have an injury or fall please immediately go to the Emergency Department -Continue rest of medications as previously prescribed -Return to the Emergency Department or call 911 (Emergency Medical Services) if symptoms return and/or worsen Prescriptions/Referrals Prescriptions/Med Rec: New aspirin 81 mg Tablet,Delayed Release (Dr/Ec) 81 mg PO QDAY Qty: 30 0RF atorvastatin 80 mg tablet 80 mg PO HS 30 Days Qty: 30 0RF metoprolol succinate 25 mg Tablet Extended Release 24 Hr 25 mg PO QDAY Qty: 30 0RF ticagrelor [Brilinta] 90 mg Tablet 90 mg PO BID 30 Days Qty: 60 0RF Continued escitalopram oxalate 20 mg Tablet 20 mg PO QDAY oxycodone-acetaminophen [Percocet] 5-325 mg tablet 1 tab PO Q8H MDD 3 PRN (Reason: pain) Qty: 7 0RF lisinopril 10 mg tablet 10 mg PO QDAY Patient Comments: TAKE 1 TABLET BY MOUTH EVERY DAY FOR 90 DAYS ropinirole 4 mg tablet 8 mg PO HS Patient Comments: TAKE 2 TABLETS BY MOUTH EVERY DAY 1-3 HOURS BEFORE BEDTIME 90 DAYS Discontinued ondansetron HCl [Zofran] 4 mg tablet 4 mg PO Q8H PRN (Reason: nausea and vomiting) Qty: 20 0RF atorvastatin 40 mg Tablet 40 mg PO QDAY valsartan [Diovan] 80 mg Tablet 240 mg PO QDAY naproxen [Naprosyn] 500 mg tablet 500 mg PO BID Qty: 14 0RF No Action ropinirole [Requip XL] 2 mg Tablet Extended Release 24 Hr 2 mg PO QDAY Referrals: Chantal Bryant MD [Physician] - Jose Antonio Donaldson PA-C [Primary Care Provider] - Patient/Caregiver Discharge Instructions Education Materials: High Blood Sugar (Hyperglycemia), Coronary Angioplasty Stenting Dc, Preventing Surgical Site Infections, Procedural Sedation, Cardiac Cath Transradial Print Language: Malaysian Stand Alone Forms: Angie Award Info., Patient Portal Info Letter Discharge Order Discharge Orders: Discharge (Routine); Ordered 11/05/24 Ordered By: Silverio Benedict Quality Discharge Quality Measures VTE prophylaxis Attestestation MD Attestation I attest that I was physically present for the evaluation, physical examination, lab and imaging review of the patient with the residents. I discussed the case with the residents and agree with the findings and plans of care as documented above. Tony Foster MD
--- NOTE | 2024-11-05 12:04 | PC.SS ---
SS received call from patient's dtrLambert who explained pt was concerned about physicians discharging him today and pt is requesting to stay few days in hospital to receive PT. SS has explained pt can go to SNF to continue with PT if he prefers. SS met with pt while dtrLambert was on the phone and provided pt with d/c options for home or SNF. Pt refused SNF placement 2X and his choice is to return home. SS explained IMM Right's form from Medicare. SS has provided [employer]. Pt and dtr aware SS will attempt to order a 4 wheel with seat, rollator walker and commode. Dtr will provide transportation home.
--- NOTE | 2024-11-05 12:20 | PC.SS ---
Walkers The diagnosis creates mobility limitation that significantly impairs ability to participate in the patients activities of daily living either in their entirety, or in a reasonable time frame. Also the patient is able to safely use the walker and the patient?s mobility is sufficiently resolved with the use of the walker and cane has been ruled out. Bedside CommodePatient is physically incapable of utilizing regular toilet facilities because his or her diagnosis confines the patient to a single room. Patient is confined to a single level, and there is no toilet on that level; patient cannot access the toilet facilities in a timely manner due to lack of ambulation
--- NOTE | 2024-11-05 12:28 | PC.SS ---
SS has sent DME order for 4 wheel with seat, rollator walker and commode using [employer]. Pt and dtr are aware patient's health insurance requires authorization if approved. Pt states he has 2 wheel walker at home. Pt and dtr are aware they will have purchase DME if insurance dose not approve.
--- NOTE | 2024-11-05 14:00 | PC.NURSE ---
Spoke with Lambert, daughter, regarding miner pick time. Per daughter, ride will be here around 1500
--- NOTE | 2024-11-06 10:44 | CHAP ---
Patient was visited by a Spiritual Care Volunteer on 11/05/2024 between 0915 and 5303 and received comfort, encouragement and/or prayer.
== END 2024-11-05 15:38 | disposition home or self-care (01) | DRG 321 ==
LOC: SERX 08:52 → SERHOLD 08:59 → S2SX 10:13 → S2NX 16:12 → S3NX 11-05 04:04
PROVIDERS: Emergency Medicine; Internal Medicine Cardiovascular Disease; Student in an Organized Health Care Education/Training Program; Admitting Provider Internal Medicine Critical Care Medicine; Emergency Provider Emergency Medicine; PCP Physician Assistant; Visit Provider Student in an Organized Health Care Education/Training Program
PROC: 4A023N7 Measurement of Cardiac Sampling and Pressure, Left Heart, Percutaneous Approach (ICD-10-PCS; principal; 2024-11-04 07:30)
DX: I21.4 Non-ST elevation (NSTEMI) myocardial infarction (principal); E11.01 Type 2 diabetes mellitus with hyperosmolarity with coma; G93.41 Metabolic encephalopathy; N17.9 Acute kidney failure, unspecified; I13.0 Hypertensive heart and chronic kidney disease with heart failure and stage 1 through stage 4 chronic kidney disease, or unspecified chronic kidney disease; E87.0 Hyperosmolality and hypernatremia; I51.81 Takotsubo syndrome; E87.20 Acidosis, unspecified; T85.694A Other mechanical complication of insulin pump, initial encounter; R41.82 Altered mental status, unspecified; J44.9 Chronic obstructive pulmonary disease, unspecified; F41.9 Anxiety disorder, unspecified; F32.A Depression, unspecified; R00.0 Tachycardia, unspecified; Z85.038 Personal history of other malignant neoplasm of large intestine; E10.22 Type 1 diabetes mellitus with diabetic chronic kidney disease; E86.0 Dehydration; E78.00 Pure hypercholesterolemia, unspecified; I25.10 Atherosclerotic heart disease of native coronary artery without angina pectoris; N18.9 Chronic kidney disease, unspecified; R50.9 Fever, unspecified; E11.65 Type 2 diabetes mellitus with hyperglycemia; E87.8 Other disorders of electrolyte and fluid balance, not elsewhere classified; I50.9 Heart failure, unspecified; M85.80 Other specified disorders of bone density and structure, unspecified site; D63.1 Anemia in chronic kidney disease; E10.649 Type 1 diabetes mellitus with hypoglycemia without coma; E86.1 Hypovolemia; E87.5 Hyperkalemia; K45.8 Other specified abdominal hernia without obstruction or gangrene; R56.9 Unspecified convulsions; Y74.2 Prosthetic and other implants, materials and accessory general hospital and personal-use devices associated with adverse incidents; Z22.322 Carrier or suspected carrier of Methicillin resistant Staphylococcus aureus; Z79.4 Long term (current) use of insulin; Z79.82 Long term (current) use of aspirin; Z79.899 Other long term (current) drug therapy; Z87.891 Personal history of nicotine dependence; Z91.199 Patient's noncompliance with other medical treatment and regimen due to unspecified reason; G25.81 Restless legs syndrome; Z92.21 Personal history of antineoplastic chemotherapy; H91.90 Unspecified hearing loss, unspecified ear; Z96.41 Presence of insulin pump (external) (internal); Z96.659 Presence of unspecified artificial knee joint; Z99.81 Dependence on supplemental oxygen
CPT/HCPCS: 36415; 36600; 70450; 71045; 71250; 72125; 74176; 80053; 80069; 80307; 80320; 81001; 82010; 82140; 82248; 82550; 82607; 82746; 82803; 82947; 83036; 83605; 83690; 83735; 83880; 84100; 84145; 84443; 84484; 84681; 85025; 85347; 85379; 85610; 85652; 85730; 86140; 87040; 87081; 87400; 87811; 93005; 93306; 94644; 97161; 99152; 99153; 99284; A4314; A4649; C1725; C1769; C1874; C1887; C1894; J0131; J0168; J0461; J0612; J0696; J1643; J1644; J1815; J1885; J1938; J2250; J2312; J2371; J2405; J3010; J3360; J3475; J3490; J7030; J7120; Q9967; A9270; G0480

== ENCOUNTER 2025-02-04 09:57 | Day surgery (SDC) | payer MEDICARE, SELFPAY ==
[2025-01-31 11:30] VITALS: BMI 26.6
--- NOTE | 2025-02-03 07:00 | EKG_ITS ---
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
[2025-02-03 13:54] LABS: Anion Gap 7 (7-16); BUN/Creatinine Ratio 18 Ratio (12-20); Blood Urea Nitrogen 21 mg/dL (9-23); Calcium 8.8 mg/dL (8.3-10.6); Carbon Dioxide 27.1 mMol/L (20.0-31.0); Chloride 112 mMol/L (98-107); Creatinine (Component) 1.2 mg/dL (0.6-1.3); Estimated Creatinine Clearance 46.5 mL/min (>60); Glucose 77 mg/dL (74-106); Osmolality,Calculated 292 (275-295); Potassium 4.3 mMol/L (3.4-5.1); Sodium 146 mMol/L (136-145); eGFR > 60 See Note
[2025-02-03 13:55] LABS: INR 1.0 (0.9-1.3); Partial Thromboplastin Time 26.3 Seconds (22.0-36.0); Prothrombin Time 10.2 Seconds (9.0-12.2)
[2025-02-03 13:59] LABS: Basophils # (Auto) 0.1 Thou/mm3 (0.0-0.2); Basophils % (Auto) 1 % (0-2.5); Eosinophils # (Auto) 1.2 Thou/mm3 (0.0-0.5); Eosinophils % (Auto) 13 % (0-10); Hematocrit 38.2 % (41.0-53.0); Hemoglobin 11.6 g/dL (13.5-16.0); Immature Granulocytes Auto 0.02 Thou/mm3 (0.00-0.00); Lymphocytes # (Auto) 1.5 Thou/mm3 (1.0-4.8); Lymphocytes % (Auto) 16 % (10-50); Mean Corpuscular HGB Conc 30.4 g/dl (31.0-37.0); Mean Corpuscular Hemoglobin 24.5 pg (25.0-35.0); Mean Corpuscular Volume 81 fL (80-100); Monocytes # (Auto) 0.7 Thou/mm3 (0.0-0.8); Monocytes % (Auto) 8 % (0-12); Neutrophils # (Auto) 5.7 Thou/mm3 (1.8-7.7); Neutrophils % (Auto) 63 % (37-80); Nucleated Red Blood Cell # 0.00 Thou/mm3 (0.00-0.00); Nucleated Red Blood Cell % 0 /100 WBC (0); Platelet Count 334 Thou/mm3 (140-440); RDW Standard Deviation 45.3 fL (35.1-43.9); Red Blood Count 4.74 Miln/mm3 (4.50-5.90); White Blood Count 9.1 Thou/mm3 (3.8-10.6)
[2025-02-04] VITALS (14 sets, daily range): BP systolic 118–175; BP diastolic 66–106; PULSE 63–93; RESP 12–23; TEMP 36.6–36.7; O2SAT 96–99
[2025-02-04] MEDS: SODIUM CHLORIDE 0.45 % 500 ML 100 ML IV (12:50)
[2025-02-04] MEDS: HYDROcodone/APAP 5/325 TABLET 1 TAB PO (12:51)
--- NOTE | 2025-02-04 13:06 | ESOP_ITS ---
RE: XIAO LANDIN : 1945 PROCEDURES PERFORMED: 1. Diagnostic left heart cardiac catheterization, selective coronary angiogram, left ventriculogram, CPT 19161-01. 2. Percutaneous coronary angioplasty and percutaneous coronary intervention (PCI) and stent placement of mid right coronary artery, placement of a drug-eluting stent, 2.5 x 23 mm Alves Xience drug-eluting stent. Pre-procedure stenosis 80%, post-procedure stenosis 0%. Pre-procedure AUTUMN flow 3, post-procedure AUTUMN flow 3. 3. Conscious sedation, 1-hour duration. 4. TR band application for radial approach. DIAGNOSES: 1. Coronary artery disease. 2. Angina pectoris. 3. Multivessel coronary artery disease, status post percutaneous coronary intervention and stent placement of left anterior descending artery and _ 80% stenosis of mid right coronary artery. HISTORY AND INDICATIONS: Patient is a 79-year-old male with history of diabetes mellitus, hypertension, angina pectoris, had acute myocardial infarction, who underwent PCI stent placement of the left anterior descending artery in 10/2024. He was found to have 80-90% stenosis of the right coronary artery. Patient was doing fairly well until recently he had some shortness of breath and chest pressure. Cardiac stress test was abnormal. Cardiac nuclear scan was showing inferolateral ischemia. Hence, coronary angiogram was recommended to assess the patient's candidacy for intervention. If the LAD is patent, recommend stent placement of the RCA. Patient with class 1 indication for PCI. DESCRIPTION OF PROCEDURE: Patient was brought to the cardiac catheterization laboratory where he was given 2 mg Versed, 50 mcg of fentanyl for sedation. Additional 50 mcg of fentanyl was given. Right radial approach was taken. Right radial artery was cannulated with micropuncture technique after 1% Xylocaine was given and a 6-Norwegian Glidesheath was introduced. Selective right coronary angiogram and left heart catheterization was performed with a 5-Norwegian TIG 4 diagnostic catheter, showed following findings: The left ventricle pressures found to be 110/1, EDP 8. Aortic pressure 102/55. No gradient across the aortic valve. Left ventriculogram showed normal left ventricular wall motion, ejection fraction 70%. Right coronary angiogram showed evidence of 80% stenosis in the mid right coronary artery. There is a 40-50% stenosis in the distal right coronary artery. PCI stent placement of the right coronary artery recommended. Right coronary artery was cannulated by using 6-Norwegian FR4 guiding catheter. A 0.014 Runthrough guidewire was used to cross the lesion successfully. Direct stent placement was performed by using a 2.5 x 23 mm Alves Xience drug-eluting stent, deployed successfully in the mid right coronary artery with excellent angiographic result. 16 atmospheres pressure was used to dilate the stent up to 2.7 mm diameter. Final angiogram showed widely patent right coronary artery, no residual stenosis. SUMMARY OF FINDINGS: Findings are suggestive of: 1. Normal left ventricular function. 2. Widely patent stent involving mid left anterior descending artery. 3. An 80% stenosis in the mid right coronary artery, underwent successful PCI and stent placement with drug-eluting stent. COMPLICATIONS: None. RECOMMENDATIONS: Continue aspirin and Brilinta combination for next 12 months. DT: 12:37:08 TT: 13:04:00 Ref: [id number] - TID: [id number] MTDD
--- NOTE | 2025-02-04 13:40 | PC.NURSE ---
1239 patient is awake, alert, breathing unlabored, s/p LHC with PCI by Dr. Bryant, report received from Rosario RN patient to recover for about 4 hours, 1hr after TR band removal. Need to wait until 1430 to start removing air from TR band per MD. 1251 patient having chronic pain to left shoulder, norco PO given with jello. 1315 patient eating lunch tray 1340 patient done eating food tray, no nausea or vomiting noted.
--- NOTE | 2025-02-04 15:30 | PC.NURSE ---
1530 TR band removed, no bleeding or hematoma noted, site covered with tegaderm and coban
--- NOTE | 2025-02-04 16:08 | PC.NURSE ---
1600: Assumed care. Pt resting with no complaints voiced. VS stable. Dressing to right wrist dry, clean, intact with strong, regular radial pulse. Denies pain. Daughter at bedside.
--- NOTE | 2025-02-04 17:14 | PC.NURSE ---
1651: Pt has met discharge criteria. Pt fully awake, oriented. VS stable. Dressing to right wrist dry, clean, intact. Bilateral radial pulses strong, regular. Denies pain. Pt dressed and assisted to restroom to void. Pt and daughter stated understanding of discharge instructions. Pt discharged from [facility] in stable condition.
== END 2025-02-04 16:52 | disposition home or self-care (01) ==
PROVIDERS: PCP Physician Assistant; Referring Provider Internal Medicine Cardiovascular Disease; Visit Provider Internal Medicine Cardiovascular Disease
PROC: (CPT 93458; principal; 2025-02-04 11:30)
PROC: (CPT 93458; 2025-02-04 11:30)
DX: I25.118 Atherosclerotic heart disease of native coronary artery with other forms of angina pectoris (principal); I25.2 Old myocardial infarction; E78.00 Pure hypercholesterolemia, unspecified; E11.9 Type 2 diabetes mellitus without complications; Z01.810 Encounter for preprocedural cardiovascular examination; I10 Essential (primary) hypertension; Z79.899 Other long term (current) drug therapy; Z79.82 Long term (current) use of aspirin
CPT/HCPCS: 93458; C9600; 36415; 80048; 85025; 85347; 85610; 85730; 93005; 99152; 99153; A4649; C1769; C1874; C1887; C1894; J0461; J1643; J2250; J2312; J2371; J3010; J3490; J7030; Q9967; A9270; J2305